=== PATIENT | male | born 1945 | race Caucasian/White ===

== ENCOUNTER → 2017-08-08 07:31 | Outpatient (CLI) | payer MEDICARE, SELFPAY ==
[2017-08-08 07:37] LABS: Microscopic, Urine URINE MICROSCOPIC (MICROSCOPIC)
[2017-08-08 14:37] LABS: Appearance,Urine CLEAR (Clear); Bilirubin,Urine Negative (Negative); Blood, Urine Negative (Negative); Color,Urine YELLOW (Yellow); Glucose,Urine (UA) Negative (Negative); Ketones,Urine Negative (Negative); Leukocyte Esterase,Urine Negative (Negative); Nitrate,Urine Negative (Negative); Protein,Urine Negative (Negative); Urobilinogen,Urine 0.2 EU/dl (0.2)
[2017-08-08 14:51] LABS: Bacteria,Urine Trace /lpf; Mucus,Urine 3+ /lpf; Squamous Epithelial Cell,Urine Occasional #/hpf (0-5); WBC,Urine Occasional #/hpf (0-3)
[2017-08-08 16:00] LABS: Anion Gap 13.3 mEq/L (5-15); Blood Urea Nitrogen 25 mg/dL (7-18); Carbon Dioxide 24 mmol/L (21.0-32.0); Chloride 110 mmol/L (98-107); Creatinine,Serum 1.49 mg/dL (0.70-1.30); Estimated Glomerular Filt Rate 46 ml/min (>60); GFR (African American) 56 ML/MIN (>60); Glucose 114 mg/dL (74-106); Potassium 4.3 mmoL/L (3.5-5.1); Sodium 143 mmol/L (136-145)
[2017-08-09 10:12] LABS: Creatinine, Urine 106.6 mg/dL (Not Estab.); Microalbumin, Urine 4.1 ug/mL (Not Estab.)
== END ==
PROVIDERS: PCP Emergency Medicine; Visit Provider Emergency Medicine
DX: E11.9 Type 2 diabetes mellitus without complications (principal); N28.9 Disorder of kidney and ureter, unspecified
CPT/HCPCS: 36415; 80048; 81001; 82043; 82570; 83036

== ENCOUNTER → 2018-04-24 08:32 | Outpatient (CLI) | payer MEDICARE, SELFPAY ==
[2018-04-24 13:49] LABS: Basophils % 0.3 % (0.1-2.0); Eosinophils # 0.3 K/mm3 (0.0-0.4); Eosinophils % 4.3 % (0.1-12.0); Hematocrit 40.6 % (42.0-52.0); Hemoglobin 13.4 g/dL (14.1-18.0); Lymphocytes # 1.7 K/mm3 (0.7-4.5); Lymphocytes % 26.5 % (10-50); Mean Corpuscular Hemoglobin 31.1 pg (27.0-31.2); Mean Corpuscular Volume 94.4 fl (80-94); Mean Platelet Volume 8.1 fl (7.4-10.4); Monocytes # 0.5 K/mm3 (0.1-1.0); Monocytes % 7.4 % (1.7-9.3); Neutrophils % 61.5 % (37.0-80.0); Platelet Count 179 K/mm3 (142-424); Red Cell Distribution Width 12.9 % (11.5-17.5); White Blood Count 6.5 K/mm3 (4.8-10.8)
[2018-04-24 14:31] LABS: Alanine Aminotransferase 28 U/L (12-78); Albumin Level 3.4 gm/dL (3.4-5.0); Albumin/Globulin Ratio 1.1 (1.1-1.8); Alkaline Phosphatase 38 U/L (46-116); Anion Gap 14.4 mEq/L (5-15); Aspartate Amino Transferase 12 U/L (15-37); Bilirubin,Total 0.4 mg/dL (0.2-1.0); Blood Urea Nitrogen 25 mg/dL (7-18); Calcium 8.5 mg/dL (8.5-10.1); Carbon Dioxide 24 mmol/L (21.0-32.0); Chloride 106 mmol/L (98-107); Chol/HDL Ratio 4.4 (1-3.5); Cholesterol 123 mg/dL (140-200); Creatinine,Serum 1.52 mg/dL (0.70-1.30); Estimated Glomerular Filt Rate 45 ml/min (>60); GFR (African American) 55 ML/MIN (>60); Globulin 3.1 gm/dl (1.3-3.2); Glucose 121 mg/dL (74-106); HDL Cholesterol 28 mg/dL (27-67); LDL Cholesterol 60 mg/dL (0-130); Potassium 4.4 mmoL/L (3.5-5.1); Prostate Specific Ag Screen 0.8 ng/mL (0.0-4.0); Sodium 140 mmol/L (136-145); Thyroid Stimulating Hormone 2.22 uIU/ml (0.358-3.740); Total Protein,Serum 6.5 gm/dL (6.4-8.2); Triglycerides 177 mg/dL (30-200); VLDL Cholesterol 35 mg/dL (0-40)
[2018-04-25 10:59] LABS: Vitamin D 25 Hydroxy 26.5 ng/mL (30.0-100.0)
[2018-04-25 11:00] LABS: Microalbumin, Urine 47.5 ug/mL (Not Estab.)
== END ==
PROVIDERS: PCP Emergency Medicine; Visit Provider Emergency Medicine
DX: Z12.5 Encounter for screening for malignant neoplasm of prostate (principal); E11.40 Type 2 diabetes mellitus with diabetic neuropathy, unspecified; I25.10 Atherosclerotic heart disease of native coronary artery without angina pectoris; I10 Essential (primary) hypertension; R53.83 Other fatigue; E55.9 Vitamin D deficiency, unspecified; K75.81 Nonalcoholic steatohepatitis (NASH)
CPT/HCPCS: 36415; 80053; 80061; 82043; 82652; 83036; 84443; 85025; G0103

== ENCOUNTER → 2018-11-24 07:50 | Outpatient (CLI) | payer MEDICARE, SELFPAY ==
[2018-11-24 13:46] LABS: Anion Gap 16.6 mEq/L (5-15); Blood Urea Nitrogen 27 mg/dL (7-18); Calcium 8.8 mg/dL (8.5-10.1); Carbon Dioxide 23 mmol/L (21.0-32.0); Chloride 108 mmol/L (98-107); Creatinine,Serum 1.62 mg/dL (0.70-1.30); Estimated Glomerular Filt Rate 42 ml/min (>60); GFR (African American) 51 ML/MIN (>60); Glucose 126 mg/dL (74-106); Potassium 4.6 mmoL/L (3.5-5.1); Sodium 143 mmol/L (136-145)
[2018-11-24 17:33] LABS: Hemoglobin A1C 6.1 % (0.0-7.0)
== END ==
PROVIDERS: PCP Emergency Medicine; Visit Provider Emergency Medicine
DX: E11.9 Type 2 diabetes mellitus without complications (principal)
CPT/HCPCS: 36415; 80048; 83036

== ENCOUNTER → 2019-03-20 07:47 | Outpatient (CLI) | payer MEDICARE, SELFPAY ==
[2019-03-20 07:57] LABS: Microscopic, Urine URINE MICROSCOPIC (MICROSCOPIC)
[2019-03-20 14:19] LABS: Appearance,Urine CLEAR (Clear); Bilirubin,Urine Negative (Negative); Blood, Urine Negative (Negative); Color,Urine YELLOW (Yellow); Glucose,Urine (UA) Negative (Negative); Ketones,Urine Negative (Negative); Leukocyte Esterase,Urine Negative (Negative); Nitrate,Urine Negative (Negative); Protein,Urine Negative (Negative); Specific Gravity, Urine 1.015 (1.005-1.030); Urobilinogen,Urine 0.2 EU/dl (0.2)
[2019-03-20 14:44] LABS: Bacteria,Urine Trace /lpf; WBC,Urine Occasional #/hpf (0-3)
[2019-03-20 14:57] LABS: Alanine Aminotransferase 26 U/L (12-78); Albumin Level 3.3 gm/dL (3.4-5.0); Albumin/Globulin Ratio 1.1 (1.1-1.8); Alkaline Phosphatase 34 U/L (46-116); Anion Gap 12.3 mEq/L (5-15); Aspartate Amino Transferase 14 U/L (15-37); Bilirubin,Total 0.4 mg/dL (0.2-1.0); Blood Urea Nitrogen 23 mg/dL (7-18); C-Reactive Protein < 0.2 mg/dL (0.0-0.9); Calcium 8.7 mg/dL (8.5-10.1); Carbon Dioxide 25 mmol/L (21.0-32.0); Chloride 109 mmol/L (98-107); Creatinine,Serum 1.67 mg/dL (0.70-1.30); Estimated Glomerular Filt Rate 41 ml/min (>60); GFR (African American) 49 ML/MIN (>60); Globulin 3.1 gm/dl (1.3-3.2); Glucose 124 mg/dL (74-106); Potassium 4.3 mmoL/L (3.5-5.1); Prostate Specific Ag Screen 0.8 ng/mL (0.0-4.0); Sodium 142 mmol/L (136-145); Thyroid Stimulating Hormone 1.83 uIU/ml (0.358-3.740); Total Protein,Serum 6.4 gm/dL (6.4-8.2)
[2019-03-20 16:25] LABS: Erythrocyte Sedimentation Rate 37 mm/hr (0-20)
== END ==
PROVIDERS: PCP Emergency Medicine; Visit Provider Emergency Medicine
DX: Z12.5 Encounter for screening for malignant neoplasm of prostate (principal); E11.9 Type 2 diabetes mellitus without complications; E78.5 Hyperlipidemia, unspecified; G47.33 Obstructive sleep apnea (adult) (pediatric); G62.9 Polyneuropathy, unspecified; I12.9 Hypertensive chronic kidney disease with stage 1 through stage 4 chronic kidney disease, or unspecified chronic kidney disease
CPT/HCPCS: 36415; 80053; 81001; 84443; 85651; 86140; G0103

== ENCOUNTER 2023-08-01 10:00 | Outpatient (RCR) | payer MEDICARE, SELFPAY | END 2023-08-21 14:36 | disposition home or self-care (01) | LOC: PT 10:00 | PROVIDERS: Visit Provider Nurse Practitioner Family | DX: M62.81 Muscle weakness (generalized) (principal) | CPT/HCPCS: 97010; 97014; 97110; 97140; 97163; 97530; G0283 ==

== ENCOUNTER 2023-10-02 10:00 | Outpatient (RCR) | payer MEDICARE, SELFPAY | END 2023-10-30 15:55 | disposition home or self-care (01) | LOC: PT 10:00 | PROVIDERS: Visit Provider Physician Assistant | DX: M25.552 Pain in left hip (principal); S76.311A Strain of muscle, fascia and tendon of the posterior muscle group at thigh level, right thigh, initial encounter | CPT/HCPCS: 20560; 97010; 97014; 97035; 97110; 97163; G0283 ==

== ENCOUNTER 2024-10-09 09:58 | Emergency (ER) | payer MEDICARE, SELFPAY ==
[2024-10-09] VITALS (12 sets, daily range): BP systolic 138–198; BP diastolic 70–91; PULSE 52–70; RESP 20–22; TEMP 36.8; O2SAT 95–98; BMI 28.4
--- NOTE | 2024-10-09 10:02 | ECG_ITS ---
APPROVED REPORT Exam: Resting ECG HR:66 bpm ECG Measurements Heart Rate 66 AXES UT 185 P 34 QRSd 97 QRS -34 QT 366 T 29 QTc 379 Conclusion Sinus rhythm Left axis deviation Electronically signed by : ATTILA SAMPSON, 10/11/2024 19:39:09
--- NOTE | 2024-10-09 10:29 | XR_ITS ---
FINAL REPORT CLINICAL HISTORY: Precordial chest pain FINDINGS: A single PA view of the chest was obtained. There is no prior exam for comparison. The cardiac and mediastinal silhouettes are within normal limits. The lungs are clear. There is no effusion or pneumothorax. IMPRESSION: No radiographic evidence of acute cardiac or pulmonary disease on this single view of the chest. Reviewed, Interpreted and Dictated by Zunilda Wilson MD Transcribed by Tesha Peter Authenticated and [facility]
[2024-10-09 10:37] LABS: Basophils % 0.2 % (0.1-2.0); Eosinophils # 0.4 Kmm3 (0.0-0.4); Eosinophils % 2.6 % (0.1-12.0); Hematocrit 39.4 % (42.0-52.0); Hemoglobin 13.3 g/dL (14.1-18.0); Immature Granulocytes # 0.07 10^3uL; Immature Granulocytes % 0.5 %; Mean Corpuscular HGB Conc 33.8 g/dL (31.8-35.4); Mean Corpuscular Hemoglobin 31.6 pg (27.0-31.2); Mean Corpuscular Volume 93.6 fl (80-94); Mean Platelet Volume 10.3 fl (7.4-10.4); Monocytes # 1.1 K/mm3 (0.1-1.0); Monocytes % 7.5 % (1.7-9.3); Neutrophils # 10.6 K/mm3 (1.8-7.8); Neutrophils % 75.2 % (37.0-80.0); Nucleated Red Blood Cells # 0 10^3/uL; Nucleated Red Blood Cells % 0 %; Platelet Count 168 K/mm3 (142-424); Red Blood Count 4.21 M/mm3 (4.60-6.20); Red Cell Distribution Width 12.8 % (11.5-17.5); Red Cell Distribution Width-SD 43.8 fL; White Blood Count 14.1 K/mm3 (4.8-10.8)
[2024-10-09 10:43] LABS: Alanine Aminotransferase 22 U/L (12-78); Albumin Level 4.2 g/dl (3.5-5.0); Albumin/Globulin Ratio 1.4 (1.1-1.8); Alkaline Phosphatase 52 U/L (38-126); Anion Gap 10.9 mEq/L (5-15); Aspartate Amino Transferase 26 U/L (17-59); Bilirubin,Total 0.5 mg/dl (0.2-1.3); Blood Urea Nitrogen 36 mg/dl (9-20); Calcium 9.1 mg/dl (8.4-10.2); Carbon Dioxide 21 mmol/L (22.0-30.0); Chloride 110 mmol/L (98-107); Creatinine Clearance Estimated 46 mL/min (50-200); Estimated Glomerular Filt Rate 42 ml/min (>60); GFR (African American) 51 ML/MIN (>60); Globulin 2.9 g/dL (1.3-3.2); Glucose 103 mg/dl (74-100); Potassium 3.9 mmoL/L (3.5-5.1); Sodium 138 mmol/L (136-145); Total Protein,Serum 7.1 g/dl (6.3-8.2)
[2024-10-09 10:49] LABS: D-Dimer 1.12 ug/mL (0.0-0.5)
[2024-10-09 10:55] LABS: NT Pro Brain Natriuretic Pep. 106 pg/mL (0-450)
[2024-10-09 11:01] LABS: Troponin I < 0.01 ng/ml (0.00-0.034)
--- NOTE | 2024-10-09 11:01 | CT_ITS ---
FINAL REPORT TECHNIQUE: Axial imaging of the chest is obtained after the administration of contrast. 3-D MIP reformatted images were also obtained and reviewed per PE protocol. CLINICAL HISTORY: elevated d dimer FINDINGS: The pulmonary arteries are well filled. There is no evidence of pulmonary embolus. There is no aortic dissection. Heart size is normal. There is no mediastinal, hilar, or axillary lymphadenopathy. The lungs are clear except for bilateral lower lobe atelectasis. There is no pleural or pericardial effusion. Limited evaluation of the upper abdomen demonstrates bilateral hypodense renal lesions, likely cysts. No acute abnormality identified. No acute osseous abnormality. IMPRESSION: No evidence of pulmonary embolism or aortic dissection. Reviewed, Interpreted and Dictated by Zunilda Wilson MD Transcribed by Gisele Brooke Authenticated and [facility]
--- NOTE | 2024-10-09 11:20 | PC.NURSE ---
pt going for CTA at this time via wheelchair
--- NOTE | 2024-10-09 11:23 | ED_ITS ---
Discharge Plan Disposition Patient Disposition: Home, Self-Care Chief Complaint: Chest Pain Referrals Follow up/Referrals: Jennifer Harp [Primary Care Provider] - See instructions Jarod Villafana MD [Staff Physician] - See instructions Activity Restrictions/Add. Instructions Additional Instructions/Restrictions: Call your family doctor to establish care for this visit to the emergency department and schedule follow-up within 48 hours to ensure improvement. If you have any worsening of your condition or any other concerning signs or symptoms, return to the emergency department or your primary care doctor for further evaluation. Contact cardiology, Dr. Villafana's office, to set up follow-up appointments. Clinical Impressions Clinical Impression: Chest pain Print Language Print Language: Greenlandic Discharge ED Provider: Kin Alcazar General Chief Complaint: Chest Pain Stated Complaint: sent by Ritu Harp. Chest Pain Time Seen by Provider: 10/09/24 10:12 Mode of Arrival: Ambulatory Source of Information: Patient Description of Symptoms (Recalled from ER Triage Doc. by RN): pt was sent by pcp for severe chest pain and soa that started this morning at 0630, it is mid sternal and worse upon breathing that goes into back, pt has hx of CAD and DVT, and hasnt seen cards in several years History of Present Illness HPI narrative: Please note that above description of symptoms, in this electronic medical record under categorization of recalled from ER triage doctor by RN are reflective of an initial nursing assessment, however, is not reflective of my full history and physical exam that was personally taken and clarified. Consequentially, this preceding description of symptoms, which may include the patient's categorized chief complaint in the EMR, do not reflect my personal clinical impression, and the ultimate description of history of present illness and patient stated complaints should be deferred to this section of the note. Unless stated otherwise or congruent with this section of the note, additional signs, symptoms, or incongruence should be interpreted as inaccurate with my clinical impression. Related Data Allergies Allergy/AdvReac Type Severity Reaction Status Date / Time No Known Allergies Allergy Verified 05/28/19 20:53 [facility] Disclaimer: The information contained in this section may have been updated after the patient was seen, as this information can be updated by other users. Social History Smoking Status: Never smoker alcohol intake: never current occupational status: employed Travel in the last 8 weeks?: None Have you lived/traveled outside US in past 30 days?: No Contact w/someone who lives/traveled outside US past 30 days?: No Exposure to someone with infectious disease in past 14 days?: No Do you have a fever (greater than 100.4 F or 38 C)?: No Have you tested positive for COVID-19?: No Exposed to someone with COVID-19 in past 14 days?: No Do you have a sore throat?: No Do you have a cough?: No Do you have any weakness?: No Do you have any diarrhea?: No Are you experiencing any unusual bleeding?: No Do you have any muscle aches/pain?: No Do you have any abdominal pain?: No Are you experiencing loss of taste or smell?: No Other Medical History Have you received the Flu Vaccine for this season: Yes Have you received the Pneumonia Vaccine: Yes ROS Obtained: Yes All systems reviewed & no additional complaints except as documented Physical Exam General General appearance: alert and in no apparent distress Neck Neck exam: Present trachea midline Chest Chest inspection: Present normal inspection and symmetric chest wall rise Respiratory Respiratory exam: Present normal lung sounds bilaterally; Absent respiratory distress, wheezes, stridor, accessory muscle use or prolonged expiratory phase Cardiovascular Cardiovascular exam: Present regular rate, normal rhythm and other (Pulses equal and symmetric in upper and lower extremities) Abdominal Exam Abdominal exam: Present soft; Absent distention or tenderness Extremities Exam Extremities exam: Absent edema Neurological Exam Neurological exam: Present alert, oriented X3 and CN II-XII intact Skin Skin exam: Present warm and dry; Absent cyanosis, diaphoresis or pallor HEART Score HEART Score HEART Score assessment performed?: Yes History (anamnesis): Slightly suspicious ECG: Normal Age: >65 years Risk factors: 3 or more risk factors Troponin: </= normal limit HEART Score: 4 Critical Care Critical Care Time Critical Care Time: No Medical Decision Making Medical Records Medical records reviewed: Yes I reviewed the patient's medical records. Perico Inquiry Pt receiving controlled substance: No Perico was queried for this patient: No Vital Signs Vital Signs: 10/09/24 10:07 10/09/24 10:13 10/09/24 10:25 Temperature 98.2 F Temperature Source Oral Pulse Rate 66 68 Pulse Rate [Left Radial] 68 Respiratory Rate 20 Blood Pressure 139/70 Blood Pressure [Right Arm] 139/70 Blood Pressure Mean 79 Blood Pressure Mean [Right Arm] 93 02 Sat by Pulse Oximetry 97 97 Oxygen Delivery Method Room Air 10/09/24 10:30 10/09/24 11:00 10/09/24 11:34 Temperature Temperature Source Pulse Rate 63 64 70 Pulse Rate [Left Radial] Respiratory Rate Blood Pressure 138/71 139/70 198/86 H Blood Pressure [Right Arm] Blood Pressure Mean Blood Pressure Mean [Right Arm] 02 Sat by Pulse Oximetry 97 97 97 Oxygen Delivery Method Room Air Room Air Room Air 10/09/24 12:00 10/09/24 12:30 10/09/24 13:00 Temperature Temperature Source Pulse Rate 61 69 59 L Pulse Rate [Left Radial] Respiratory Rate Blood Pressure 160/85 H 160/91 H 157/83 H Blood Pressure [Right Arm] Blood Pressure Mean 107 Blood Pressure Mean [Right Arm] 02 Sat by Pulse Oximetry 98 97 95 Oxygen Delivery Method Room Air Room Air 10/09/24 13:30 Temperature Temperature Source Pulse Rate 52 L Pulse Rate [Left Radial] Respiratory Rate 21 Blood Pressure 161/89 H Blood Pressure [Right Arm] Blood Pressure Mean Blood Pressure Mean [Right Arm] 02 Sat by Pulse Oximetry 95 Oxygen Delivery Method Room Air Lab Data Labs: Lab Results 10/09/24 10:06: WBC 14.1 H, RBC 4.21 L, Hgb 13.3 L, Hct 39.4 L, MCV 93.6, MCH 31.6 H, MCHC 33.8, RDW 12.8, Plt Count 168, MPV 10.3, Neut % (Auto) 75.2, Lymph % (Auto) 14.0, [place] % (Auto) 7.5, Eos % (Auto) 2.6, Baso % (Auto) 0.2, Neut # (Auto) 10.6 H, Lymph # (Auto) 2.0, [place] # (Auto) 1.1 H, Eos # (Auto) 0.4, Baso # (Auto) 0.0, D-Dimer 1.12 H, Sodium 138, Potassium 3.9, Chloride 110 H, Carbon Dioxide 21 L, Anion Gap 10.9, BUN 36 H, Creatinine 1.60 H, Estimated Creat Clear 46, Estimated GFR 42 L, Est GFR ( Amer) 51 L, Glucose 103 H, Calcium 9.1, Total Bilirubin 0.5, AST 26, ALT 22, Alkaline Phosphatase 52, Troponin I < 0.01, NT-Pro-B Natriuret Pep 106, Total Protein 7.1, Albumin 4.2, Globulin 2.9, Albumin/Globulin Ratio 1.4 10/09/24 12:58: Troponin I < 0.01 10/09/24 10:06 10/09/24 10:06 Response Orders (Tests/Meds): ED MEDICATIONS Generic Name Dose Route Start Last Admin Trade Name Freq PRN Reason Stop Dose Admin Sodium Chloride 10 ml 10/09/24 11:36 Sodium Chloride 0.9% 10ml Syr (Rad Only) IV 11/08/24 11:35 NEEDED PRN Maintain IV Site Discontinued Medications Generic Name Dose Route Start Last Admin Trade Name Freq PRN Reason Stop Dose Admin Al Hydrox/Mg Hydrox/Simethicone 30 ml 10/09/24 11:26 10/09/24 12:07 Aluminum/Magnesium/Simethicone 30ml Udc PO 10/09/24 11:27 30 ml ONCE ONE Administration Aspirin 324 mg 10/09/24 11:26 10/09/24 12:07 Aspirin 81mg Chewable Tablet PO 10/09/24 11:27 324 mg ONCE ONE Administration Iopamidol 70 ml 10/09/24 11:36 Iopamidol-370 (76%);100ml Bottle IV 10/09/24 11:37 ONCE ONE Sodium Chloride 50 ml 10/09/24 11:36 0.9 % Sodium Chloride 50 Ml Vial IV 10/09/24 11:37 ONCE ONE ORDERS Category Date Time Status CTA Chest [CT angio chest PE protocol] Stat Cat Scan 10/09/24 11:01 Completed XR chest portable Stat Exams 10/09/24 10:29 Completed Complete Blood Count Auto Diff Stat Lab 10/09/24 10:06 Completed Comprehensive Metabolic Panel Stat Lab 10/09/24 10:06 Completed D-Dimer Stat Lab 10/09/24 10:06 Completed NT Pro Brain Natriuretic Pep. Stat Lab 10/09/24 10:06 Completed Troponin I Q3H Lab 10/09/24 12:58 Completed Troponin I Q3H Lab 10/09/24 16:30 Ordered Troponin I Stat Lab 10/09/24 10:06 Completed MDM Narrative Medical Decision Narrative: 78-year-old male history of hypertension, hyperlipidemia, CAD status post stenting x 3, provoked PE no longer on anticoagulation presenting with chest pain. He states the chest pain started this morning after he woke up. Substernal, does not radiate, associated with some shortness of breath. No PND, orthopnea, lower extremity swelling, or any other concerns. Patient states that he came in for further evaluation. History was obtained via conversation with patient and family. On arrival, patient hemodynamically stable, alert, oriented x4, appropriate, GCS 15, moving all extremities spontaneously, pupils equal and reactive to light. Full physical exam performed and significant for clinically well-appearing male no acute distress. Nontachypneic, nontachycardic, normotensive. Speaking full sentences. Lungs are clear bilaterally anterior and posteriorly. Cardiac exam without murmurs gallops or rubs. No lower extremity edema. Pulses equal and symmetric in upper and lower extremities. Neurovascular intact and ambulatory. Nonactionable exam overall. Differential includes microvascular coronary artery disease, CHF, ACS, VA, coronary artery dissection, pneumothorax, PE, dissection, pericarditis, myocarditis, pneumothorax, aortic aneurysm, pneumonia, bronchitis, among others. Patient was given Maalox and aspirin for symptomatic management and correction of underlying abnormalities. Patient placed on continuous cardiac monitoring and continuous pulse ox with initial blood pressure 138/71, heart rate 63, saturation 97% on room air. Independent interpretation of EKG shows sinus rhythm with left axis deviation CT interval 185, QRS 97, QTc 379. No acute ischemic change. Ventricular rate 66 bpm. Workup independently interpreted and significant for mild leukocytosis 14.1 with relative neutrophilia. Patient's kidney function appears stable with creatinine 1.6 and BUN 36. Initial troponin negative, BNP negative. D-dimer elevated at 1.12. CT angiogram was ordered. Chest x-ray ordered first. On independent interpretation of chest x-ray, no acute intrathoracic abnormality. See radiology read for full review of final results. Heart score 4. Patient was placed in observation beginning at 11 AM in order to rule out evolving VA with delta troponins and determine need for admission versus home-going. The patient was provided serial exams, monitoring while awaiting results. Independent interpretation of results demonstrated no acute cardiopulmonary or airspace disease on CT, no evidence of PE. Delta troponin negative. On reevaluation, resting comfortably. Given patient presentation, workup, history, this most likely represents idiopathic chest pain. It was discussed with patient and that cardiac chest pain cannot be completely ruled out and recommended following up with cardiology and PCP. Call your family doctor to establish care for this visit to the emergency department and schedule follow-up within 48 hours to ensure improvement. If you have any worsening of your condition or any other concerning signs or symptoms, return to the emergency department or your primary care doctor for further evaluation. Insurance Special Agent disclaimer Much of this encounter note is an electronic kiln operator helper spoken language to printed text. Electronic kiln operator helper of the spoken language may permit errors. Although I have reviewed the note, some errors may still exist.
--- NOTE | 2024-10-09 11:32 | PC.NURSE ---
pt arrived back to room
[2024-10-09] MEDS: ASPIRIN 81MG CHEWABLE TABLET 324 MG PO (12:07)
[2024-10-09] MEDS: ALUMINUM/MAGNESIUM/SIMETHICONE 30ML UDC 30 ML PO (12:07)
--- NOTE | 2024-10-09 13:37 | PC.NURSE ---
pt was given a urinal at this time
[2024-10-09 13:40] LABS: Troponin I < 0.01 ng/ml (0.00-0.034)
== END 2024-10-09 14:16 | disposition home or self-care (01) ==
PROVIDERS: Emergency Provider Emergency Medicine; PCP Nurse Practitioner Family
DX: R07.2 Precordial pain (principal); R06.02 Shortness of breath; I25.10 Atherosclerotic heart disease of native coronary artery without angina pectoris; I10 Essential (primary) hypertension; E78.5 Hyperlipidemia, unspecified
CPT/HCPCS: 71045; 71275; 80053; 83880; 84484; 85025; 85378; 93005; 99285

== ENCOUNTER 2025-02-21 11:28 | Observation (INO) | payer MEDICARE, SELFPAY ==
[2025-02-21] VITALS (17 sets, daily range): BP systolic 72–127; BP diastolic 44–65; PULSE 58–90; RESP 14–26; TEMP 36.4–36.7; O2SAT 94–99; BMI 25.8
--- OUTSIDE RECORDS SUMMARY | 2025-02-21 11:42 | XMS_ITS | Encounter Summary ---
Author Organization [employer] ([place], [place], [place], [place]) Address [address] [place] [address] Care Team Providers Care Jet Operator Name Role Phone Jennifer Harp DANYELLE Primary Care Provider [phone] Encounter Details Date Type Department Care Team (Late st Contact Info) Description 10/26/2019 Transcribed Document [facility] Neurology - [address] [id number] Tania Bee Jr., MD [address] [place] [address] Social History Tobacco Use Types Packs/Day Years Used Date Smoking Tobacco: Never Assessed Sex and Gender Information Value Date Recorded Sex Assigned at Male 11/21/2021 4:44 PM CDT Legal Sex Male 4:44 PM CDT Gender Identity Male 11/21/2021 4:44 PM CDT Sexual Orientation Not on file documented as of this encounter Miscellaneous Notes * Cerner Conversion Note - Tania Bee Jr., MD - 10/26/2019 1:29 PM EDT Patient: JAMIR VILLAFUERTE Age: 74 Years Sex: Male : 1945 *Operation L3-s1 laminectomy and posterolateral fusion t10-ll laminectomy *Preoperative Diagnosis lumbar stenosis thoracic stenosis *Postoperative Diagnosis SEE MD POST OP NOTE *Surgeon(s) Primary Surgeon TANIA BEE MD-SNU (Surgeon/Proceduralist, First) *Estimated Blood Loss <400ml *Findings expected *Specimen(s) disc Complications none Date of Service Date/Time of Service SN - Proc - Start Time: 10/26/19 08:57:00 (10/26/19 09:05:25) SN - Proc - Start Time: 10/26/19 08:57:00 (10/26/19 09:05:25) documented in this encounter Plan of Treatment Not on file documented as of this encounter Visit Diagnoses Not on filedocumented in this encounter Care Teams Jet Operator Relationship Specialty Start Date End Date Jennifer Harp, FRUIT AND VEGETABLE PARER [address] [place] [address] PCP - General Family Medicine 12/18/22 documented as of this encounter
--- OUTSIDE RECORDS SUMMARY | 2025-02-21 11:42 | XMS_ITS | Encounter Summary ---
Author Organization [employer] ([place], [place], [place], [place]) Address [address] [place] [address] Care Team Providers Care Technical Director Name Role Phone Jennifer Harp DANYELLE Primary Care Provider [phone] Encounter Details Date Type Department Care Team (Late st Contact Info) Description 10/26/2019 Transcribed Document [facility] Family [facility] [place] [address] ProviderHarsh MD [address] [place] [id number] Social History Tobacco Use Types Packs/Day Years Used Date Smoking Tobacco: Never Assessed Sex and Gender Information Value Date Recorded Sex Assigned at Male 11/21/2021 4:44 PM CDT Legal Sex Male 4:44 PM CDT Gender Identity Male 11/21/2021 4:44 PM CDT Sexual Orientation Not on file documented as of this encounter Miscellaneous Notes * Cerner Conversion Note - Historical ProviderMD - 10/26/2019 8:[address] [facility] Main OR Preop Summary Primary Physician: TANIA BEE MD-SNU Finalized Date/Time: 10/26/19 08:50:56 Pt. Name: VILLAFUERTE JAMIR Coleman /Sex: 1945 Male Med Rec #: [id number] Physician: TANIA BEE MD-SNU Financial #: [id number] Pt. Type: I Room/Bed: ASA/1 Admit/Disch: 10/26/19 06:44:00 - Institution: [facility] PreOp Case Times Entry 1 In Preop 10/26/19 06:00:00 Ready for Holding n/a Room Patient Ready for 10/26/19 07:25:00 Surgery Patient Out of Preop 10/26/19 08:17:00 Patient Out of n/a Holding Room Last Modified By: Kaleigh Rivera, Nurse Rn L And D 10/26/19 08:50:55 [facility] PreOp Case Times Audit 10/26/19 08:50:55 Technical Inspector: BRICE Modifier: [id number] <+> 1 Patient Out of Preop Finalized By: Kaleigh Rivera Nurse Hatchery Employee Signatures Signed By: Kaleigh Rivera Nurse Rn L And D 10/26/19 08:50 Electronically signed by [facility] Conversion Risk Analyst Cerner at 09/12/2022 11:03 AM CDT documented in this encounter Plan of Treatment Not on file documented as of this encounter Visit Diagnoses Not on filedocumented in this encounter Care Teams Technical Director Relationship Specialty Start Date End Date Jennifer Harp, MEDICAL LANGUAGE SPECIALIST [address] [place] [address] PCP - General Family Medicine 12/18/22 documented as of this encounter
--- OUTSIDE RECORDS SUMMARY | 2025-02-21 11:42 | XMS_ITS | Encounter Summary ---
Author Organization [employer] ([place], [place], [place], [place]) Address [address] [place] [address] Care Team Providers Care Tenter Frame Back Tender Name Role Phone KatiuskaJennifer Kwesi BASSETT Primary Care Provider [phone] Encounter Details Date Type Department Care Team (Late st Contact Info) Description 06/11/2019 Transcribed Document [facility] [place] [facility] [place] [address] ProviderHarsh MD [address] [place] [address] Social History Tobacco Use Types Packs/Day Years Used Date Smoking Tobacco: Never Assessed Sex and Gender Information Value Date Recorded Sex Assigned at Male 11/21/2021 4:44 PM CDT Legal Sex Male 4:44 PM CDT Gender Identity Male 11/21/2021 4:44 PM CDT Sexual Orientation Not on file documented as of this encounter Miscellaneous Notes * Cerner Conversion Note - Historical ProviderMD - 06/11/2019 1:34 PM FRONT END DRUPAL DEVELOPER DATE OF SERVICE: 06/11/2019 SLEEP MEDICINE CONSULTATION. PRIMARY PROVIDER: Dr. Jamal Orozco. HISTORY OF PRESENT ILLNESS: Patient has a history of obstructive sleep apnea of at least 20 years duration. He has most recently been treated with bilevel therapy based on a titration study performed in 2015 here at [facility]. I have those studies and have reviewed them. According to the patient, and I am not able to obtain notes, he was treated with 19/18 bilevel therapy. He says that this caused him marked difficulty sleeping. He would wake up with a tight chest and choking and this caused the lining of his mouth to peel. He had hospital vent and they have reset the machine to 9 according to his recollection. Unfortunately, we cannot get Viri's to give us any information on his settings and the machine has no data on it to download. Patient goes to bed about 9 at night, gets up at 5 in the morning, averages 8 hours of sleep at night. He is fatigued during the day. His [place] Sleepiness Score is elevated at 17. He did snore in the past, does not with CPAP, but still is observed to stop breathing at night. It is of note that his CPAP titration study did show persistent central apneas and he was taken to ASV. The central apneas, however, only developed with high CPAP pressures over 20 cm of water pressure. He does have symptoms of reflux. He does have hypnagogic hallucinations. He does have some leg pain. Parasomnias, he denies. PAST MEDICAL HISTORY: Significant for hypertension, coronary artery disease, chronic nasal obstruction, skin cancer, high cholesterol, reflux, kidney disease, and cataracts. PAST SURGICAL HISTORY: Two cardiac stents, detached retinas, cataract surgery. SOCIAL HISTORY: He does not smoke or use alcohol. He drinks 3 to 4 caffeinated beverages a day. FAMILY HISTORY: Positive for diabetes, heart disease, hypertension, daytime sleepiness, and restless legs. REVIEW OF SYSTEMS: A 14-system review of systems is reviewed on the intake questionnaire and pertinent positives are noted. PHYSICAL EXAMINATION: VITAL SIGNS: Height is 5 feet 10 inches, weight is 210, BMI is 30, neck circumference 16, respirations 16, O2 saturations 97%, blood pressure is 130/70, pulse is 62. HEENT: On exam of the oropharynx, mucosa is normal. He has Mallampati type 3. NECK: Without palpable adenopathy. Trachea is midline. Thyroid is normal to palpation. Parotids and submandibular glands are normal. LUNGS: Clear to auscultation with distant breath sounds. HEART: Without murmurs. EXTREMITIES: Without clubbing or cyanosis. He does have 1+ ankle edema. NEUROLOGIC: Cranial nerves II through XII are intact. He is oriented appropriate and a fair historian. MEDICATIONS: 1. Low-dose aspirin. 2. Carvedilol. 3. Omeprazole. 4. Oxybutynin. 5. Sertraline. 6. Plavix. 7. Alfuzosin. 8. Durezol drops. 9. Losartan. 10. Lovastatin. 11. Nasacort. ALLERGIES: Penicillin. LABORATORY DATA: Patient's previous CPAP titration study and ASV titration were reviewed. IMPRESSION: 1. Obstructive sleep apnea. 2. Hypertension. 3. Coronary artery disease. 4. Obesity. RECOMMENDATIONS: 1. CPAP titration report. 2. New mask tubing and filters. I am going to have them titrate him with fairly low pressures as I think a higher pressures induce central apneas. Hopefully we can get him treated with bilevel and get him on a new machine, which he desperately needs as this one is quite old. 3. Follow up in 6 to 8 weeks, but we will phone followup and get his machine ordered as soon as possible. /[id number] Pam lAix Hayes MD PW/AQ / PW / MODL /[id number] CC: Dr. Bertrand Orozco Electronically signed by [facility] Conversion Ultrasonographer Cerner at 09/12/2022 11:11 AM CDT documented in this encounter Plan of Treatment Not on file documented as of this encounter Visit Diagnoses Not on filedocumented in this encounter Care Teams Tenter Frame Back Tender Relationship Specialty Start Date End Date Jennifer Harp, ADJUNCT SPANISH INSTRUCTOR [address] [place], [place] [address] PCP - General Family Medicine 12/18/22 documented as of this encounter
--- OUTSIDE RECORDS SUMMARY | 2025-02-21 11:42 | XMS_ITS | Encounter Summary ---
Author Organization [address] ([place], [place], [place], [place]) Address [address] [place] [address] Care Team Providers Care Panel Machine Setter Name Role Phone KatiuskaJennifer Kwesi BASSETT Primary Care Provider [phone] Encounter Details Date Type Department Care Team (Late st Contact Info) Description 10/27/2019 Transcribed Document [facility] [place] [facility] [place] [address] ProviderHarsh MD [address] [place] [address] Social History Tobacco Use Types Packs/Day Years Used Date Smoking Tobacco: Never Assessed Sex and Gender Information Value Date Recorded Sex Assigned at Male 11/21/2021 4:44 PM CDT Legal Sex Male 4:44 PM CDT Gender Identity Male 11/21/2021 4:44 PM CDT Sexual Orientation Not on file documented as of this encounter Miscellaneous Notes * Cerner Conversion Note - Historical ProviderMD - 10/27/2019 11:57 AM CDT Treatment Intervention, OT Entered On: 10/29/2019 14:47 EDT Performed On: 10/29/2019 9:13 EDT by MIGUEL JOHNSON OTR/Deisy General Information, OT Visit Type, OT : Treatment Note MIGUEL JOHNSON OTR/Deisy - 10/29/2019 14:40 EDT Patient Orders : Order Date Order Ordering 10/26/2019 12:26 Occupational Therapy Evaluation and Treatme Ordered By: TANIA BEE MD-SNU 10/27/2019 11:57 OT Additional Treatment Ordered By: Active Diagnoses : 10/28/2019 12:00 Spinal stenosis, lumbar region without neurogenic claudication 10/28/2019 12:00 Spondylolisthesis, lumbar region MIGUEL JOHNSON OTR/L 10/29/2019 15:04 EDT Therapy Diagnosis, OT : Decreased indpendence with ADLs due to pain and weakness MIGUEL JOHNSON OTR/L 10/29/2019 14:40 EDT Admission Date : 10/26/2019 06:44 MIGUEL JOHNSON OTR/L 10/29/2019 15:04 EDT Co-treated by, OT : Physical Therapist MIGUEL JOHNSON OTR/L 10/29/2019 14:40 EDT Personal Devices : Personal Devices Glasses Assistive Devices : Assistive Devices No Devices Recorded MIGUEL JOHNSON OTR/L 10/29/2019 15:[address] : Log roll precautions, Spinal Precautions, Other: HOB elevated to 30 deg MIGUEL JOHNSON OTR/L 10/29/2019 14:40 EDT General Status Patient Received Status : Supine in bed Treatment Start Time : 10/29/2019 8:47 EDT Patient Left Status : Supine in bed, Family/Visitors at bedside, All needs met and within reach RN/PCT Informed Comment : BEVERLEY Pacheco ok/brigida Treatment End Time : 10/29/2019 9:13 EDT Treatment Time : 26 Minute(s) MIGUEL JOHNSON OTR/L 10/29/2019 14:40 EDT Self Care/Home Management, OT Lower Body Dressing Assist Level, OT : Assist, moderate Toilet Transfer Assist Level : Assist, minimal MIGUEL JOHNSON OTR/L 10/29/2019 14:40 EDT Functional Mobility Mobility Grid Sit to Stand : Rehab Minimal assistance Bed to Chair : Rehab Minimal assistance (Comment: X2 [MIGUEL JOHNSON OTR/L 10/29/2019 14:40 EDT] ) Stand to Sit : Rehab Minimal assistance MIGUEL JOHNSON OTR/L - 10/29/2019 14:40 EDT Cognitive Treatment, OT Orientation : Oriented x 4 MIGUEL JOHNSON OTR/L - 10/29/2019 14:40 EDT Plan of Care, OT OT Tx Plan/Goals Established w Patient : Yes MIGUEL JOHNSONDHAVAL/Deisy - 10/29/2019 14:40 EDT Intermediate Goals, OT Bathing LTG Grid Goal #1 Activity : Bathing Assist : Independent, modified Date to Meet : 11/10/2019 EDT Goal Status : Initial goal ALEX DHAVAL RIVERA/Deisy - 10/29/2019 14:40 EDT Dressing, Lower Body LTG Grid Goal #1 Activity : Dressing, Lower Body Assist : Independent, modified Date to Meet : 11/10/2019 EDT Goal Status : Progressing, continue ALEX DHAVAL RIVERA/Deisy - 10/29/2019 14:40 EDT Toileting LTG Grid Goal #1 Activity : Toileting Assist : Independent, modified Date to Meet : 11/10/2019 EDT Goal Status : Initial goal ALEX DHAVAL RIVERA/Deisy - 10/29/2019 14:40 EDT Toilet Transfer LTG Grid Goal #1 Activity : Toilet Transfer, Ambulatory Assist : Independent, modified Date to Meet : 11/10/2019 EDT Goal Status : Progressing, continue ALEX DHAVAL RIVERA/Deisy - 10/29/2019 14:40 EDT Treatment Note Subjective Comment : Pt was agreeable ALEX DHAVAL RIVERA/Deisy - 10/29/2019 14:40 EDT Patient's Response to Treatment : Pt tolerated tx well ALEX DHAVAL RIVERA/Deisy - 10/29/2019 15:04 EDT Additional Objective Information : Pt was found up in room with PT. Pt was min A X2 for ambulation via RWX. Pt was mod A for lower body dressing via yard caller and sock aid. Pt was min A for upper body dressing. Pt was left sitting up in chair with all needs met, and call light within in reach MIGUEL JOHNSON OTR/Deisy - 10/29/2019 14:40 EDT Assessment : Pt is progressing towards goals, no goals met today Plan for Treatment : Cont OT POC MIGUEL JOHNSON OTR/Deisy - 10/29/2019 15:04 EDT Pain Assessment Pain Scaled Used : 0-10 Pain scale Pain Score Pre-Intervention : 7 MIGUEL JOHNSON OTR/Deisy - 10/29/2019 14:40 EDT Image 1 - Images currently included in the form version of this document have not been included in the text rendition version of the form. [facility] OT Charges OT Selfcare/Hm Mgmt Ea 15 Min : 1 OT Ther Activities Ea 15 Min : 1 MIGUEL JOHNSON OTR/Deisy - 10/29/2019 14:40 EDT Electronically signed by Bora, [facility] Conversion Charging Plug Placer Cerner at 09/16/2022 3:30 PM CDT documented in this encounter Plan of Treatment Not on file documented as of this encounter Visit Diagnoses Not on filedocumented in this encounter Care Teams Panel Machine Setter Relationship Specialty Start Date End Date Jennifer Harp, DROP WIRER [address] [place] [address] PCP - General Family Medicine 12/18/22 documented as of this encounter
--- OUTSIDE RECORDS SUMMARY | 2025-02-21 11:42 | XMS_ITS | Encounter Summary ---
Author Organization [employer] ([place], [place], [place], [place]) Address [address] [place] [address] Care Team Providers Care Lead Applications Developer Name Role Phone KatiuskaJennifer Kwesi BASSETT Primary Care Provider [phone] Encounter Details Date Type Department Care Team (Late st Contact Info) Description 10/22/2019 Transcribed Document [facility] [place] [facility] [place] [address] ProviderHarsh MD [address] [place] [address] Social History Tobacco Use Types Packs/Day Years Used Date Smoking Tobacco: Never Assessed Sex and Gender Information Value Date Recorded Sex Assigned at Male 11/21/2021 4:44 PM CDT Legal Sex Male 4:44 PM CDT Gender Identity Male 11/21/2021 4:44 PM CDT Sexual Orientation Not on file documented as of this encounter Miscellaneous Notes * Cerner Conversion Note - Historical ProviderMD - 10/22/2019 2:31 PM CDT PAT Adult Entered On: 10/22/2019 14:49 EDT Performed On: 10/22/2019 14:31 EDT by CHUCK KELLY, RN Vital Measurements Temperature Source : Temporal artery scanning Temperature Mode : Fahrenheit Temperature, Fahrenheit : 98.1 Deg F Clinical Temperature, C : 36.7 Deg C Peripheral Pulse Rate : 60 bpm Respiratory Rate : 18 Breaths/Min Systolic Blood Pressure : 117 mmHg Diastolic Blood Pressure : 68 mmHg Oxygen Saturation : 96 % Oxygen Therapy Mode : Room air CHUCK KELLY RN - 10/22/2019 15:00 EDT Pain Assessment Pain Assessment : Initial assessment Pain Scale Goal : 3 Pain Scale Used : 0-10 Scale Location : Back Pain Worsened by : Movement CHUCK KELLY RN - 10/22/2019 14:31 EDT Height and Weight, Clinical Dosing Height Source : Measured Height Entry Format : [place] Height, Feet : 5 ft(Converted to: 152 cm, 60 Inch) Height, Inches : 7 Inch(Converted to: 0 ft 7 Inch, 17.78 cm) Clinical Height : 170.18 cm Weight Source : Standing scale Weight Entry Format : [place] Clinical Dosing Weight : 87.73 kg Weight, Pounds : 193 lb Body Surface Area (BSA) : 1.99 m2 Body Mass Index : 30.3 kg/m2 (HI) Matthews Body Weight : 65 kg CHUCK KELLY RN - 10/22/2019 14:31 EDT Health Histories Smoking Status : Never (less than 100 in lifetime; none in last 30 days) Smokeless Tobacco Status : Never CHUCK KELLY RN - 10/22/2019 14:31 EDT Social History (As Of: 10/22/2019 14:49:13 EDT) Tobacco: Smoking Status Never smoker. (Last Updated: 07/15/2013 16:51:04 EST by YARIEL REAL, BEVERLEY) Alcohol: Use in Last 12 Months: No. (Last Updated: 07/15/2013 16:51:04 EST by YARIEL REAL, BEVERLEY) Substance Abuse: Drug Use Hx: No. (Last Updated: 07/15/2013 16:51:04 EST by YARIEL REAL, BEVERLEY) Nutrition/Health: Caffeine intake amount: 2 cups coffee/1 soda daily. (Last Updated: 07/15/2013 16:51:04 EST by YARIEL REAL, BEVERLEY) Home/Environment: Injuries/Abuse/Neglect in household: No. Feels unsafe at home: No. (Last Updated: 07/15/2013 16:51:04 EST by YARIEL REAL, RN) Lives with Spouse. Home equipment: CPAP/BiPAP, Glucose monitoring, Walker/Cane. (Last Updated: 10/22/2019 14:21:24 EDT by CHUCK KELLY RN) Infectious Disease History Has the patient ever been tested for COVID-19? : Yes, Patient stated results pending Date of COVID-19 Test : 10/22/2019 COVID19 Screening : No Experiencing Infectious Disease Symptoms : No symptoms Physical contact outside [place] in the last 30 days : No Infectious Disease Symptoms Score : 0 Infectious Disease History : Chicken pox/Shingles, Influenza, Measles, Mumps Tuberculosis Symptoms : None CHUCK KELLY RN - 10/22/2019 14:31 EDT Anesthesia/Transfusion History Family History of Anesthesia Reaction : No prior transfusion(s) Blood Transfusion Acceptable to Patient : Yes Transfusion History : Prior anesthesia without reaction Family History of Anesthesia Reaction : None, Other: mother age 91 didnt wake up after hip pinning... 3 days later 2014 CHUCK KELLY RN - 10/22/2019 14:31 EDT Functional Assessment Functional ADL Evaluation Index EBN Bathing : Independent (2) Dressing : Independent (2) Toileting : Independent (2) Transferring Bed or Chair : Independent (2) Continence : Independent (2) Feeding : Independent (2) CHUCK KELLY RN - 10/22/2019 14:31 EDT ADL Index Score : 12 CHUCK KELLY RN - 10/22/2019 14:31 EDT Advance Directive Patient has Advance Directive *Q : No, patient refuses Advance Directive information CHUCK KELLY RN - 10/22/2019 14:31 EDT [place] Suicide Severity Rating Scale (C-SSRS) CSSRS Past Month Wish to be : No CSSRS Past Month Suicidal Thoughts : No CSSRS Lifetime Suicide Behavior : No Suicide Severity Rating Score : 0 Suicide Severity Rating : No Additional Care Required at this time CHUCK KELLY RN - 10/22/2019 14:31 EDT Psychosocial History Do You Have a History of the Following? : Anxiety Currently in Unsafe Situation : No CHUCK KELLY RN - 10/22/2019 14:31 EDT Teaching/Learning Assessment Barriers To Learning : None evident Individuals Taught : Patient Readiness to Learn : Cooperative Readiness to Learn : Explanation, Printed materials CHUCK KELLY RN - 10/22/2019 14:31 EDT Education Topics, Periop Preadmission Perioperative Education Grid Arrival Time/Place : Verbalizes understanding CHG Preoperative Bathing/Cloths : Verbalizes understanding Falls : Verbalizes understanding Infection Control : Verbalizes understanding IV's : Verbalizes understanding NPO Status/Directions : Verbalizes understanding Pain Management : Verbalizes understanding Postoperative Care Preparations : Verbalizes understanding Preprocedure Preparations : Verbalizes understanding Preprocedure Tests/Labs : Verbalizes understanding Remove Body Piercings : Verbalizes understanding Responsible Adult : Verbalizes understanding Take/Hold Medications Pre-Procedure : Verbalizes understanding CHUCK KELLY RN - 10/22/2019 14:31 EDT Responsible Adult Contact Information : mago morrison CHUCK KELLY RN - 10/22/2019 14:31 EDT General Info Preferred Name : Jamir Support Person/Pt Rep Name : Mago Support Person/Pt Rep Contact Information : [phone] or [phone] Want Family/Rep/Phys Notified of Admit : No Emergency Contact #1 : mago Emergency Contact #1 Emergency Contact #1 Relationship : spouse Emergency Contact #2 : none Emergency Contact #2 Phone Number : none Emergency Contact #2 Relationship : none Information Obtained From : Patient Primary Language : Belizean Preferred Communication Mode : Verbal Communication Barrier : None CHUCK KELLY RN - 10/22/2019 14:31 EDT Bernard Scale Bernard Sensory Perception : Slightly limited Bernard Moisture : Rarely moist Bernard Activity : Walks occasionally (Comment: tabe [CHUCK KELLY RN - 10/22/2019 14:31 EDT] ) Bernard Mobility : Slightly limited Bernard Nutrition : Adequate Bernard Friction and Shear : No apparent problem Bernard Score : 19 CHUCK KELLY RN - 10/22/2019 14:31 EDT Sleep Apnea Risk Assmt BiPAP/CPAP Ordered for Home Use : Yes Hx of Obstructive Sleep Apnea Diagnosis : Yes BiPAP/CPAP Used at Home : Yes Age over 50 Years Old : Yes Gender Male : Yes CHUCK KELLY RN - 10/22/2019 14:31 EDT Pain Scale Intensity : 4 CHUCK KELLY RN - 10/22/2019 14:31 EDT Image 4 - Images currently included in the form version of this document have not been included in the text rendition version of the form. documented in this encounter Plan of Treatment Not on file documented as of this encounter Visit Diagnoses Not on filedocumented in this encounter Care Teams Lead Applications Developer Relationship Specialty Start Date End Date Jennifer Harp, TAX PROCESSOR [address] [place] [address] PCP - General Family Medicine 12/18/22 documented as of this encounter
--- OUTSIDE RECORDS SUMMARY | 2025-02-21 11:42 | XMS_ITS | Encounter Summary ---
Author Organization [employer] ([place], [place], [place], [place]) Address [address] [place] [address] Care Team Providers Care Electric Power Line Repairer Name Role Phone Jennifer Harp DANYELLE Primary Care Provider [phone] Encounter Details Date Type Department Care Team (Late st Contact Info) Description 10/26/2019 Transcribed Document [facility] Radiology [address] [place] [address] Nerissa Sharma MD [address] [place] [address] Social History Tobacco Use Types Packs/Day Years Used Date Smoking Tobacco: Never Assessed Sex and Gender Information Value Date Recorded Sex Assigned at Male 11/21/2021 4:44 PM CDT Legal Sex Male 4:44 PM CDT Gender Identity Male 11/21/2021 4:44 PM CDT Sexual Orientation Not on file documented as of this encounter Miscellaneous Notes * Cerner Conversion Note - Nerissa Sharma MD - 10/26/2019 1:13 PM EDT Patient: JAMIR VILLAFUERTE Age: 74 years Sex: Male : 1945 Associated Diagnoses: None Author: EL LOMBARDO PA-QUIN 10/26/2019 cc: medical management s/p posterior lumbar fusion per Dr. Locke HPI: Patient is a 74 yo male admitted to [facility] per Dr. Locke for a posterior lumbar fusion. Preoperatively patient was found to have advanced spondylolisthesis of the lumbar spine and elected surgical intervention after failing conservative treatment. Patient is followed perioperatively while hospitalized for medical management. Initial visit seen on floor - Denies prior stroke or seizure. Denies HI, CHF or cardiac arrhythmia. Has had to have a cardiac stent placed. Denies DM. Denies COPD, asthma. Denies DVT or PE. Denies h/o cancer. Denies any bladder issues. Denies any recent illnesses that required abx. Denies prior skin infections. Has a history of chronic loose stools. States that Metamucil helps keep you informed. Has Tenorio cirrhosis. Has chronic kidney disease. History of hypertension. States he does have obstructive sleep apnea and wears a BiPAP at night. Patient states he's had a greenlight procedure on his prostate. States that now he urinates every 30 minutes. Past Med Hx: Active Problems (29) Anxiety Arthritis Back pain CAD, 3 heart stents May 2015 Cancer of skin, 2018 left pre-auricular lesion excised Cataract//extraction Chronic constipation depression diagnosed obstructive sleep apnea Diverticula of colon Falls frequently//less past 2 weeks GERD Hard of hearing History of obstructive sleep apnea//biPap hypercholesterolemia hypertension impaired vision//wears glasses Incontinence Liver cirrhosis//non alcholic Muscle weakness//legs Numbness and tingling//bilateral knee down prostate problems Renal disease//stage 4 Restless legs syndrome Right hip pain//right leg Seasonal allergies Sleep disorder//has to sleep on side spine problems Swelling of lower extremity//bilateral Active Procedures (1) greenlight laser of prostate Family Hx: Father had esophageal rupture. Mother was 21 years old and to 3 days to wake up from surgery. She did not do well afterwards. Social & Psychosocial Habits Alcohol 07/15/2013 Alcohol Use in Last Twelve Months No Home/Environment 07/15/2013 Injuries/Abuse/Neglect in household: No Feels unsafe at home: No 10/22/2019 Lives with: Spouse Home equipment: CPAP/BiPAP, Glucose monitoring, Walker/Cane Nutrition/Health 07/15/2013 Caffeine intake amount: 2 cups coffee/1 soda daily Substance Abuse 07/15/2013 Recreational Drug Use History No Tobacco 07/15/2013 Smoking Status Never smoker Allergies (1) Active Reaction penicillin Unsure Home Medications (12) Active alfuzosin 10 mg, Oral, Daily Mila Low Dose 81 mg, Oral, Daily carvedilol 25 mg, Oral, BID Durezol 2 Drop, Eye Left, Daily losartan 50 mg, Oral, Daily Metamucil , Oral, Daily multivitamin 1 Tab, Oral, Daily Nasacort Allergy 24HR 1 Superior, Nasal, Daily omeprazole 40 mg, Oral, Daily Plavix 75 mg, Oral, Daily Refresh Optive 1 Drop, Eye Right, Daily sertraline 25 mg, Oral, Daily ROS: Constitutional: [No fevers, sweats] , currently chilled after surgery. HEENT: [No ear pain, nasal congestion, sore throat] Respiratory: [No shortness of breath, cough, sputum production] Cardiovascular: [No Chest pain, palpitations, shortness of breath] Gastrointestinal: [No nausea, vomiting, diarrhea, constipation] , states he has loose stools but takes Metamucil daily and this helps form his stool. Genitourinary: [No hematuria, dysuria, incontinence ; positive urinary frequency Musculoskeletal: Positive back pain Integumentary: [No rash, pruritus, abrasions, lesions] Neurologic: [No seizures or stroke. No dizziness or syncope. Exam: Vitals Signs (last 24 hrs) Last Charted Minimum Maximum Temp 98.2 (OCT 25:04) 98.2 (OCT 25:) 98.2 (OCT 25:) Periph HR 55 (OCT 25:) 55 (OCT 25:04) 55 (OCT 25:) Resp Rate 16 (OCT 25:04) 16 (OCT 25 07:04) 16 (OCT 25 07:04) SBP 135 (OCT 25 07:04) 135 (OCT 25 07:04) 135 (OCT 25:) DBP 71 (OCT 25 07:04) 71 (OCT 25 07:04) 71 (OCT 25 07:04) SpO2 97 (OCT 25 07:04) 97 (OCT 25 07:04) 97 (OCT 25:) GEN: Alert, awake, NAD, in the bed shivering. Neck: supple, no thyromegaly HEENT: NCAT, no icterus, no thrush, nares patent, CV: S1S2, no murmur. No LE edema Resp: CTAB, NL Abd: Soft, NT, ND +BS Skin: no rashes on inspection and palpation. Ext: No LE edema. No joint edema, erythema. Neuro: A&O x 3, CN grossly intact Data: Preop: Reviewed CBC, BMP, UA Creatinine 1.5 EKG with normal sinus rhythm, heart rate of 61 Impression: advanced spondylolisthesis Lspine; -Status post posterior lumbar fusion per Dr. Locke Hypertension Obstructive sleep apnea, BiPAP compliant Tenorio cirrhosis chronic kidney disease stage IV Plan: bipap Will hold ARB, reassess bp and renal function in the a.m. Monitor HTN; add PRN's, hold parameters???for beta vignesh bowel regimen incentive spirometer PT/OT DVT prophylaxis noted Pain management deferred to surgeon will monitor hb/hct daily for signs of ongoing acute blood loss will monitor bun/cr daily for signs of dehydration, prerenal azotemia will monitor for signs/symptoms of post-op wound infection or hospital acquired infectious process resume outpatient medication regimen for comorbidities Assessment and treatment plan made in conjunction with Humberto Sharma MD documented in this encounter Plan of Treatment Not on file documented as of this encounter Visit Diagnoses Not on filedocumented in this encounter Care Teams Electric Power Line Repairer Relationship Specialty Start Date End Date Jennifer Harp, HOGSHEAD COOPER [address] [place] [address] PCP - General Family Medicine 12/18/22 documented as of this encounter
--- OUTSIDE RECORDS SUMMARY | 2025-02-21 11:42 | XMS_ITS | Encounter Summary ---
Author Organization [employer] ([place], [place], [place], [place]) Address [address] [place] [address] Care Team Providers Care Microwave Radio Technician Name Role Phone HarpJennifer robles DANYELLE Primary Care Provider [phone] Encounter Details Date Type Department Care Team (Late st Contact Info) Description 10/26/2019 Transcribed Document [facility] Neurology - [address] [id number] Jamal Locke Jr., MD [address] [place] [address] Social History Tobacco Use Types Packs/Day Years Used Date Smoking Tobacco: Never Assessed Sex and Gender Information Value Date Recorded Sex Assigned at Male 11/21/2021 4:44 PM CDT Legal Sex Male 4:44 PM CDT Gender Identity Male 11/21/2021 4:44 PM CDT Sexual Orientation Not on file documented as of this encounter Miscellaneous Notes * Cerner Conversion Note - Jamal Locke Jr., MD - 10/26/2019 1:39 PM EDT DATE OF PROCEDURE: 10/26/2019 SURGEON: Jamal Locke Jr, MD PREOPERATIVE DIAGNOSES: 1. Thoracic stenosis with myelopathy. 2. Lumbar spondylosis with radiculopathy. POSTOPERATIVE DIAGNOSES: 1. Thoracic stenosis with myelopathy. 2. Lumbar spondylosis with radiculopathy. PROCEDURES PERFORMED: 1. T10-11 laminectomy. 2. L3-S1 laminectomy with posterolateral pedicle screw arthrodesis. 3. Both surgeries were used with Airo intraoperative CT scan and Portero neuro navigation. 4. Excision of synovial cyst at thoracic laminectomy site. RETORT FEEDER GROUND BONE: Estrellita Main PA-C. ANESTHESIA: General endotracheal. BLOOD LOSS: Less than 400 mL. COMPLICATIONS: None. SPECIMENS: Disk and synovial cyst. DRAINS: Epidural ALICIA drain to bulb suction at both surgical sites. CONDITION: Stable to PACU. INDICATION FOR PROCEDURE: Mr. Villafuerte is 74 years old. I saw him in the office occasion. He had severe back and radicular leg pain, but also described diffuse bilateral leg weakness. He had very severe stenosis at the levels mentioned above, both the lateral recess and foraminal level. I actually had him undergo a cervical and thoracic MRI scan because of the diffuse nature of his leg weakness and wanted to make sure he did not have any cord compression. Indeed, he has very severe spinal cord compression with cord signal change at T10-11 from thoracic spondylosis with hypertrophy of posterior elements. I called him and recommended we incorporate the thoracic laminectomy into the surgery today and went over everything again with him today. He does have severe cervical stenosis with some mild cord compression, but he does not really have any upper extremity symptoms, and certainly, I thought the worst areas of stenoses were in the thoracic and lumbar region. I went over everything again with the surgery and answered all of his questions and then consent was signed. DESCRIPTION OF PROCEDURE: After informed consent was obtained, the patient was brought to the operating room where general endotracheal anesthesia was induced routinely. I instructed the anesthesiologist to keep the mean arterial pressure over 85 to make sure adequate cord perfusion. A Maradiaga catheter was placed. I turned him prone on the Airo CT scan table using the chest, hip, and thigh pads. Arms were abducted and flexed. All pressure points were padded and protected, and he was secured to the bed with straps per routine. We made sure the neck was in a neutral to slightly flexed position. I marked out the midline of the back. The back was widely prepped and draped in usual sterile fashion. Prophylactic antibiotics were given. A reference array was Steri-Stripped to the gluteal area. We took a scan for navigational purposes. I then marked the skin from L3-S1 in the midline and at the T10-11 level. I used the [employer] drill navigation to place 2 posterior iliac fixation pins in the right posterior iliac crest. Once the fixation pins were placed, a permanent reference array base was clamped across and the construct was stable. The initial scan was used to localize the incision, and I opened the thoracic incision over T10-11 and performed a subperiosteal dissection with Bovie cautery. Josey retractors were placed here after hemostasis was obtained. We then exposed from L3-S1. We placed Josey retractors after we exposed all the facet complexes in the lamina. I had the L2-3, L3-4, L4-5, and L5-S1 facet complexes exposed. Josey retractors were placed. We took a scan for navigational purposes. This allowed me to remove the spinous process of T10 and 11, thin out the lamina at T10 and the superior aspect of the laminectomy. I complete the laminectomy with 2 mm Kerrison punches. As expected, there was severe stenosis here and deformity of the dural sac from hypertrophied elements. There was actually a synovial cyst on the left facet joint that I carefully dissected free with a micro blunt nerve hook, and I sent this for specimen. We obtained a nice decompression. I thought the stenosis at this level was severe. We then made sure hemostasis was complete. I placed some FloSeal in the lateral recess region, washed it away, and placed a Ray-Luiza in the wound superficially. We then placed screws. I used the pointer to select an entry point trajectory into the right S1 pedicle. I drilled in the pedicle, advanced gearshift probe under navigation, placed a 7.0 x 50 screw on the right and then on the left. I placed 7.0 x 50 screws at L5 and L4, and at L3, I placed 7.0 x 55 screws. Prior to placing each screw, I palpated inside the tapped pedicle to make sure that there was no breach and each screw placement seemed appropriate. Please note that we navigated with a gearshift probe to tap in the screw. I then removed the spinous processes from L3-S1, thinned out the lamina with a matchstick drill bit, and then completed the central laminectomy. I drilled out widely on both sides. There was severe lateral recess from hypertrophied facet and thickened ligament at L3-4. At L4. I obtained a nice bilateral lateral recess decompression. There was not any significant lateral recess stenosis at L5-S1. On the right, there was severe foraminal stenosis at L4-5. I came across the pars interarticularis here to decompress the L4 nerve root dorsally. Also on the right, there was severe stenosis at L3-4 and the medial foraminal area. I obtained a nice decompression of the L3 nerve root. On the left, there was severe foraminal stenosis at L4-5 and L5-S1 with L5-S1 probably being worse than L4-5. I drilled out dorsally over the nerve roots on both sides and decompressed dorsally with Kerrison punches. At this point, I decompressed bilateral lateral recess and foraminal areas and I could advance a ball probe out the L3, the L4, the L5, and the S1 foramen. The worst area of stenosis was bilateral L4-5 lateral recess, then L3-4 lateral recess, then the right L4-5 foramen. I elected not to place an interbody cage because we had a significant amount of posterolateral elements that I could place bone graft in there. The screws were long and nicely placed. I thought there would be a benefit to not disrupt the posterior portion of the disk, it would also decrease surgical time and decrease blood loss and potentially decrease postoperative pain. I was happy with the dorsal decompression. Once I placed a channing on each side, I tightened and torqued the set screws. I palpated all the foramen again, and I made sure that there was no abnormal bleeding. FloSeal was placed in each lateral recess region and then washed away. Valsalva showed no CSF leakage. I decorticated the posterolateral elements from L3-S1 and laid allograft ViviGen and autograft bone from the laminectomy. We then took a scan for navigational purposes from T10 down to S1. I confirmed we were at the correct level of T10-11 and confirmed all the hardware placement was appropriate. Soft tissue hemostasis was obtained to both incisions. We tunneled a 15-Cayman Islander round epidural ALICIA drain at both incisions subfascially through a separate stab incision. A drain stitch was applied at skin level of both drains. Both drains were cut to the appropriate length and placed in the wound. Then, the muscle fascia, Lucy's layer, and dermis were closed with interrupted Vicryl sutures on both incisions in the thoracic area. The skin incision was closed with erika. Again, we essentially performed 2 separate operations here under the same anesthesia. I confirmed that the drains were functional. Dressings were applied. The patient went to recovery room in good condition. Estrellita Main PA-C, assisted through the entire operation with tasks such as suctioning, soft tissue retraction, laminectomy, instrumentation placement, nerve root retraction, and wound closure. /[id number] Jamal Locke Jr, MD RDO/AQ / RDO / MODL /[id number] documented in this encounter Plan of Treatment Not on file documented as of this encounter Visit Diagnoses Not on filedocumented in this encounter Care Teams Microwave Radio Technician Relationship Specialty Start Date End Date Jennifer Harp, MALE INFERTILITY SPECIALIST [address] [place] [address] PCP - General Family Medicine 12/18/22 documented as of this encounter
--- OUTSIDE RECORDS SUMMARY | 2025-02-21 11:42 | XMS_ITS | Encounter Summary ---
Author Organization [employer] ([place], [place], [place], [place]) Address [address] [place] [address] Care Team Providers Care Magazine Editor Name Role Phone KatiuskaJennifer Kwesi BASSETT Primary Care Provider [phone] Encounter Details Date Type Department Care Team (Late st Contact Info) Description 10/27/2019 Transcribed Document [facility] [place] Family [place] [facility] [place] [address] ProviderHarsh MD [address] [place] [address] Social History Tobacco Use Types Packs/Day Years Used Date Smoking Tobacco: Never Assessed Sex and Gender Information Value Date Recorded Sex Assigned at Male 11/21/2021 4:44 PM CDT Legal Sex Male 4:44 PM CDT Gender Identity Male 11/21/2021 4:44 PM CDT Sexual Orientation Not on file documented as of this encounter Miscellaneous Notes * Cerner Conversion Note - Harsh ProviderMD - 10/27/2019 10:59 AM CDT UM Authorization Entered On: 10/27/2019 10:59 EDT Performed On: 10/27/2019 10:59 EDT by Gail Pickett Rn-Utilization Review Primary Insurance Authorization Authorization and Policy Numbers : Insurance 1 Health Plan: [employer] CHO[employer] PPO Policy Number: [id number] Authorization Number: [id number] Insurance Primary Name : [employer] CHO[employer] PPO Policy Number: [id number] Authorization Status-Primary : Notification only Reference Number-Primary : [id number] Authorization Number-Primary : [id number] Authorized Service Begin Date-Primary : 10/26/2019 EDT Historical Authorization Comments-Primary : Comment 1: [] [employer] Medicare auth per availity for inpt (RUPERTO RICCI, RN-Utilization Review 10/22/2019 13:05) Gail Pickett Rn-Utilization Review - 10/27/2019 10:59 EDT Electronically signed by [facility] Conversion Technology Support Analyst Cerner at 09/12/2022 10:53 AM CDT documented in this encounter Plan of Treatment Not on file documented as of this encounter Visit Diagnoses Not on filedocumented in this encounter Care Teams Magazine Editor Relationship Specialty Start Date End Date Jennifer Harp, FILM PROCESSING UTILITY WORKER [address] [place] [address] PCP - General Family Medicine 12/18/22 documented as of this encounter
--- OUTSIDE RECORDS SUMMARY | 2025-02-21 11:42 | XMS_ITS | Encounter Summary ---
Author Organization [employer] ([place], [place], [place], [place]) Address [address] [place] [address] Care Team Providers Care Hvac Specialist Name Role Phone HarpJennifer robles Kwesi BASSETT Primary Care Provider [phone] Encounter Details Date Type Department Care Team (Late st Contact Info) Description 10/27/2019 Transcribed Document [facility] [place] Family [place] [facility] [place] [address] ProviderHarsh MD [address] [place] [address] Social History Tobacco Use Types Packs/Day Years Used Date Smoking Tobacco: Never Assessed Sex and Gender Information Value Date Recorded Sex Assigned at Male 11/21/2021 4:44 PM CDT Legal Sex Male 4:44 PM CDT Gender Identity Male 11/21/2021 4:44 PM CDT Sexual Orientation Not on file documented as of this encounter Miscellaneous Notes * Cerner Conversion Note - Harsh ProviderMD - 10/27/2019 2:00 PM CDT Pain Assessment Entered On: 10/27/2019 17:05 EDT Performed On: 10/27/2019 15:15 EDT by Tara Steinberg, RN Intervention Information: acetaminophen Performed by Tara Steinberg, RN on 10/27/2019 14:15:00 EDT acetaminophen,650mg Oral Pain Assessment Pain Assessment : Follow-up assessment Pain Scale Goal : 4 Pain Scale Used : 0-10 Scale Tara Steinberg RN - 10/27/2019 17:05 EDT Pain Scale Intensity : 1 Tara Steinberg RN - 10/27/2019 17:05 EDT Image 4 - Images currently included in the form version of this document have not been included in the text rendition version of the form. documented in this encounter Plan of Treatment Not on file documented as of this encounter Visit Diagnoses Not on filedocumented in this encounter Care Teams Hvac Specialist Relationship Specialty Start Date End Date Jennifer Harp, MANAGER MSW [address] [place] [address] PCP - General Family Medicine 12/18/22 documented as of this encounter
--- OUTSIDE RECORDS SUMMARY | 2025-02-21 11:42 | XMS_ITS | Encounter Summary ---
Author Organization [employer] ([place], [place], [place], [place]) Address [address] [place] [address] Care Team Providers Care Spa Concierge Name Role Phone HarpJennifer robles Kwesi BASSETT Primary Care Provider [phone] Encounter Details Date Type Department Care Team (Late st Contact Info) Description 10/27/2019 Transcribed Document [facility] [place] Family Medicine [facility] [place] [address] ProviderHarsh MD [address] [place] [address] Social History Tobacco Use Types Packs/Day Years Used Date Smoking Tobacco: Never Assessed Sex and Gender Information Value Date Recorded Sex Assigned at Male 11/21/2021 4:44 PM CDT Legal Sex Male 4:44 PM CDT Gender Identity Male 11/21/2021 4:44 PM CDT Sexual Orientation Not on file documented as of this encounter Miscellaneous Notes * Cerner Conversion Note - Harsh ProviderMD - 10/27/2019 5:00 PM CDT Chart Check - Review Order Profile Entered On: 10/27/2019 17:06 EDT Performed On: 10/27/2019 17:00 EDT by Tara Steinberg, RN Chart Check Powerplans Initiated/Discontinued as Appropriate : Yes All Active Orders Reviewed : Yes Tara Steinberg, RN - 10/27/2019 17:06 EDT documented in this encounter Plan of Treatment Not on file documented as of this encounter Visit Diagnoses Not on filedocumented in this encounter Care Teams Spa Concierge Relationship Specialty Start Date End Date Jennifer Harp, DENTAL CREAM MAKER [address] [place] [address] PCP - General Family Medicine 12/18/22 documented as of this encounter
--- OUTSIDE RECORDS SUMMARY | 2025-02-21 11:42 | XMS_ITS | Encounter Summary ---
Author Organization [employer] ([place], [place], [place], [place]) Address [address] [place] [place] [address] Care Team Providers Care Objective C Developer Name Role Phone KatiuskaJennifer Kwesi BASSETT Primary Care Provider [phone] Encounter Details Date Type Department Care Team (Late st Contact Info) Description 10/28/2019 Transcribed Document [facility] [place] Family [place] [facility] [place] [address] ProviderHarsh MD [address] [place] [address] Social History Tobacco Use Types Packs/Day Years Used Date Smoking Tobacco: Never Assessed Sex and Gender Information Value Date Recorded Sex Assigned at Male 11/21/2021 4:44 PM CDT Legal Sex Male 4:44 PM CDT Gender Identity Male 11/21/2021 4:44 PM CDT Sexual Orientation Not on file documented as of this encounter Miscellaneous Notes * Cerner Conversion Note - Harsh ProviderMD - 10/28/2019 10:00 AM CDT Pain Assessment Entered On: 10/28/2019 9:24 EDT Performed On: 10/28/2019 9:34 EDT by Tara Steinberg, RN Intervention Information: acetaminophen Performed by Tara Steinberg, RN on 10/28/2019 08:34:00 EDT acetaminophen,650mg Oral Pain Assessment Pain Assessment : Follow-up assessment Pain Scale Goal : 4 Pain Scale Used : 0-10 Scale Tara Steinberg RN - 10/28/2019 9:24 EDT Pain Scale Intensity : 3 Tara Steinberg RN - 10/28/2019 9:24 EDT Image 4 - Images currently included in the form version of this document have not been included in the text rendition version of the form. documented in this encounter Plan of Treatment Not on file documented as of this encounter Visit Diagnoses Not on filedocumented in this encounter Care Teams Objective C Developer Relationship Specialty Start Date End Date Jennifer Harp, HAND SCRAPER [address] [place] [address] PCP - General Family Medicine 12/18/22 documented as of this encounter
--- OUTSIDE RECORDS SUMMARY | 2025-02-21 11:42 | XMS_ITS | Encounter Summary ---
Author Organization [employer] ([place], [place], [place], [place]) Address [address] [place] [address] Care Team Providers Care Records Management Assistant Name Role Phone KatiuskaCayla Kwesi BASSETT Primary Care Provider [phone] Encounter Details Date Type Department Care Team (Late st Contact Info) Description 10/27/2019 Transcribed Document [facility] [place] Family Medicine [place] [address] ProviderHarsh MD [address] [place] [address] Social History Tobacco Use Types Packs/Day Years Used Date Smoking Tobacco: Never Assessed Sex and Gender Information Value Date Recorded Sex Assigned at Male 11/21/2021 4:44 PM CDT Legal Sex Male 4:44 PM CDT Gender Identity Male 11/21/2021 4:44 PM CDT Sexual Orientation Not on file documented as of this encounter Miscellaneous Notes * Cerner Conversion Note - Harsh ProviderMD - 10/27/2019 4:00 PM CDT Initial Discharge Planning Entered On: 10/27/2019 16:03 EDT Performed On: 10/27/2019 16:00 EDT by TY CAMPBELL, RN-Coordinator Of Genetic Services Initial Assessment I Previously Documented Living Environment : No qualifying data available. Living Situation : Home Patient Lives With : Spouse Is the Patient a Caregiver at Home? : No Emergency Contact #1 : joe Emergency Contact #1 Emergency Contact #1 Relationship : spouse Emergency Contact #2 : none Emergency Contact #2 Phone Number : none Emergency Contact #2 Relationship : none Enter Doctors Name : CAYLA HARP NP-FAM Does Patient have PCP Listed? : Yes TY CAMPBELL RN-Coordinator Of Genetic Services - 10/27/2019 16:00 EDT Initial Assessment II Sensory and Motor Deficits : Weakness Current Home Treatments and Equipment : Cane, Elevated toilet seat, Safety rails/bars, Walker Does the Patient have a Floor to SNF Benefit? : No TY CAMPBELL RN-Coordinator Of Genetic Services - 10/27/2019 16:00 EDT Discharge Needs I Anticipated Discharge Date : 10/28/2019 EDT Anticipated Discharge To, CM : Acute Care Facility, jail facility Current Home Treatment/Equipment : Current Home Treatment/Equipment No qualifying data available. Documentation Status Complete : Yes TY CAMPBELL RN-Coordinator Of Genetic Services - 10/27/2019 16:00 EDT Discharge Needs II Professional Skilled Services : Professional Skilled Services No qualifying data available. Needs Assistance with Transportation : No Discharge Options Discussed with Patient : Acute rehabilitation, Short term rehabilitation TY CAMPBELL RN-Coordinator Of Genetic Services - 10/27/2019 16:00 EDT Narrative Note Narrative Note : 74yo male pt s/p T10-11 lami/L3-S1 lami/excision of cyst. Met with pt at bedside to discuss DCP. Pt lives with his spouse. He states she is not able to help him physically and requests rehab at [facility]. [facility]. Precert initated. D/W Kendrick Guerrero, and bedside RN Erin. STAPLES will follow. TY CAMPBELL RN-Coordinator Of Genetic Services - 10/27/2019 16:00 EDT Electronically signed by [facility] Conversion Polyethylene Combiner Cerner at 09/12/2022 10:52 AM CDT documented in this encounter Plan of Treatment Not on file documented as of this encounter Visit Diagnoses Not on filedocumented in this encounter Care Teams Records Management Assistant Relationship Specialty Start Date End Date Cayla Harp, TURBINATED BONE GRINDER [address] [place] [address] PCP - General Family Medicine 12/18/22 documented as of this encounter
--- OUTSIDE RECORDS SUMMARY | 2025-02-21 11:42 | XMS_ITS | Encounter Summary ---
Author Organization [employer] ([place], [place], [place], [place]) Address [address] [place] [address] Care Team Providers Care Retail Wireless Sales Consultant Name Role Phone HarpJennifer robles Kwesi BASSETT Primary Care Provider [phone] Encounter Details Date Type Department Care Team (Late st Contact Info) Description 10/22/2019 Transcribed Document [facility] [place] Family [place] [facility] [address] ProviderHarsh MD [address] [place] [address] Social History Tobacco Use Types Packs/Day Years Used Date Smoking Tobacco: Never Assessed Sex and Gender Information Value Date Recorded Sex Assigned at Male 11/21/2021 4:44 PM CDT Legal Sex Male 4:44 PM CDT Gender Identity Male 11/21/2021 4:44 PM CDT Sexual Orientation Not on file documented as of this encounter Miscellaneous Notes * Cerner Conversion Note - Harsh ProviderMD - 10/22/2019 1:05 PM CDT UM Authorization Entered On: 10/22/2019 13:06 EDT Performed On: 10/22/2019 13:05 EDT by RUPERTO RICCI RN-Utilization Review Primary Insurance Authorization Authorization and Policy Numbers : Insurance 1 Health Plan: [employer] PPO Policy Number: [id number] Authorization Number: Insurance Primary Name : [employer] PPO Policy Number: [id number] Authorization Status-Primary : Notification only Reference Number-Primary : [id number] Authorization Number-Primary : [id number] Authorized Service Begin Date-Primary : 10/26/2019 EDT Authorization Comments-Primary : [] [employer] Medicare auth per availity for inpt Historical Authorization Comments-Primary : No Authorization Comments Found RUPERTO RICCI RN-Utilization Review - 10/22/2019 13:05 EDT Electronically signed by [facility] Conversion Transitional Care Manager Cerner at 09/12/2022 10:51 AM CDT documented in this encounter Plan of Treatment Not on file documented as of this encounter Visit Diagnoses Not on filedocumented in this encounter Care Teams Retail Wireless Sales Consultant Relationship Specialty Start Date End Date Jennifer Harp, STORE LEADER [address] [place] [address] PCP - General Family Medicine 12/18/22 documented as of this encounter
--- OUTSIDE RECORDS SUMMARY | 2025-02-21 11:42 | XMS_ITS | Encounter Summary ---
Author Organization [employer] ([place], [place], [place], [place]) Address [address] [place] [address] Care Team Providers Care Financial Systems Manager Name Role Phone KatiuskaJennifer Kwesi BASSETT Primary Care Provider [phone] Encounter Details Date Type Department Care Team (Late st Contact Info) Description 10/26/2019 Transcribed Document [facility] [place] Family [place] [address] ProviderHarsh MD [address] [place] [address] Social History Tobacco Use Types Packs/Day Years Used Date Smoking Tobacco: Never Assessed Sex and Gender Information Value Date Recorded Sex Assigned at Male 11/21/2021 4:44 PM CDT Legal Sex Male 4:44 PM CDT Gender Identity Male 11/21/2021 4:44 PM CDT Sexual Orientation Not on file documented as of this encounter Miscellaneous Notes * Cerner Conversion Note - Historical ProviderMD - 10/26/2019 12:26 PM CDT Evaluation, Physical Therapy Entered On: 10/27/2019 10:44 EDT Performed On: 10/27/2019 9:57 EDT by Issa Toussaint, Student-Physical Therapist General Information, PT Visit Type, PT : Initial evaluation Issa Toussaint, Student-Physical Therapist - 10/27/2019 9:57 EDT Patient Orders : Order Date Order Ordering 10/26/2019 12:26 Physical Therapy Eval and Treat Ordered By: TANIA BEE MD-SNU Active Diagnoses : No Qualifying Diagnoses ISSA VALENTE, PT - 10/27/2019 11:46 EDT Therapy Diagnosis, PT : Impaired mobility. ISSA VALENTE, PT - 10/27/2019 11:36 EDT Onset of Problem, PT : 10/26/2019 EDT Issa Toussaint Student-Physical Therapist - 10/27/2019 9:57 EDT Admission Date : 10/26/2019 06:44 ISSA VALENTE, PT - 10/27/2019 11:46 EDT Co-treated by, PT : Occupational Therapist Issa Toussaint, Yelena-Physical Therapist - 10/27/2019 9:57 EDT Personal Devices : Personal Devices Glasses Assistive Devices : Assistive Devices No Devices Recorded ISSA VALENTE, PT - 10/27/2019 11:[address] : Log roll precautions, Other: HOB elevated to 30 deg Issa Toussaint Student-Physical Therapist - 10/27/2019 9:57 EDT General Information Comment, PT : Dx: Spondylolisthesis Hx: CAD, BLE weakness, renal disease (stage 4), greenlight laser of prostate. Sx:L3-S1 laminectomy & posteriolateral fusion and T10-L1 laminectomy and synovial cyst removal (10/26/2019). Order: with BRACE. ISSA VALENTE, PT - 10/27/2019 11:46 EDT General Status Patient Received Status : Supine in bed Treatment Start Time : 10/27/2019 9:23 EDT Patient Left Status : Up in chair Treatment End Time : 10/27/2019 9:51 EDT Treatment Time : 28 Minute(s) Issa Toussaint Student-Physical Therapist - 10/27/2019 9:57 EDT History and Environment Living Situation, Therapy : Home Patient Lives With : Spouse Persons Assisting Patient at Home : Spouse Professional Skilled Services : None Persons Providing Information : Patient Home Equipment Therapy, PT : Cane, Shower Equipment Home Setup : Multi-level home Bedroom Location : Downstairs Bathroom #1 Location : Downstairs Stairs : Yes Stair Location(s) : Inside, Outside Inside Stairs, Number of Steps : 8 Stairs Inside Comment : 2 sets of 8 steps Outside Stairs, Number of Steps : 2 Outside Stairs Comment : three entrances into house all had at least 1 step Railing Inside : Yes Inside Railing Position : Right, going up Railing Outside : Yes Issa Toussaint, Student-Physical Therapist - 10/27/2019 9:57 EDT Prior LOF Assist with ADL Comment : Patient reported requiring assistance with ADLs for past 6 weeks due to BLE weakness/numbness; prior to reported 6 weeks patient was independent with all ADLs. ISSA VALENTE, PT - 10/27/2019 11:36 EDT Upper Extremity Right UE Active ROM : WFL Left UE Active ROM : WFL Issa Toussaint, Student-Physical Therapist - 10/27/2019 9:57 EDT Lower Extremity RLE Active ROM : [facility] LLE Active ROM : [facility] Issa Toussaint, Student-Physical Therapist - 10/27/2019 9:57 EDT Right Lower Extremity MMT Knee Flexion (0-140) : 3/fair Knee Extension (0-0) : 3+/fair Ankle Dorsiflexion (0-20) : 4/good Ankle Plantarflexion (0-45) : 4/good Issa Toussaint, Student-Physical Therapist - 10/27/2019 9:57 EDT Left Lower Extremity MMT Knee Flexion (0-140) : 3/fair Knee Extension (0-0) : 3/fair Ankle Dorsiflexion (0-20) : 4/good Ankle Plantarflexion (0-45) : 4/good Issa Toussaint, Student-Physical Therapist - 10/27/2019 9:57 EDT Functional Mobility Mobility Grid Bed Roll Left : Rehab Minimal assistance Bed Scooting : Rehab Minimal assistance Supine to Sit : Rehab Minimal assistance Sit to Stand : Rehab Minimal assistance Stand to Sit : Rehab Minimal assistance Issa Toussaint Student-Physical Therapist - 10/27/2019 9:57 EDT Sit to Stand Device : Walker, front wheel Stand to Sit Device : Walker, front wheel Issa Toussaint, Student-Physical Therapist - 10/27/2019 9:57 EDT Gait Training/Assessment, PT Gait Assistance Level : Assist, minimal Issa Toussaint, Student-Physical Therapist - 10/27/2019 9:57 EDT Walking Distance : 100' Ambulatory Devices : Gait belt, Walker, front wheel ISSA VALENTE, PT - 10/27/2019 11:36 EDT Gait Deviations : Yes Issa Toussaint, Student-Physical Therapist - 10/27/2019 9:57 EDT Gait Training Comment : Upon amb, pt initially displayed irregular step lengths; following several steps pt displayed a more normal gait pattern. Pt required v/c to maintain upright posture and to stay within his walker. order for LSO, but has yet to arrive. Pt amb w/o LSO. ISSA VALENTE, PT - 10/27/2019 11:36 EDT Cognition Assessment, PT Orientation : Oriented x 4 Attention Assessment : Present Issa Toussaint Student-Physical Therapist - 10/27/2019 9:57 EDT Edu Topics Physical Therapy Education Grid Bed Mobility Training : Returns demonstration Gait Training : Returns demonstration Role of Physical Therapy : Verbalizes understanding Use of Assistive Device : Returns demonstration, Needs reinforcement Issa Toussaint Student-Physical Therapist - 10/27/2019 9:57 EDT Teaching/Learning Assessment ISSA VALENTE, PT - 10/27/2019 11:36 EDT Indication Assesessment, PT Physical Therapy Indicated : Yes PT Problem List : Impaired, activities daily living, Impaired, bed mobility, Impaired, endurance tolerance, Impaired, gait, Impaired, transfers Potential Barriers To Therapy : Acuity of Illness, Pain Rehabilitation Potential : Good Issa Toussaint Student-Physical Therapist - 10/27/2019 9:57 EDT Plan of Care, PT PT Tx Plan/Goals Established w Patient : Yes PT Frequency Rehab : Daily, twice (bid) PT Duration Rehab : Fourteen days PT Treatments Planned : Gait training, Stair training, Transfer training Issa Toussaint Student-Physical Therapist - 10/27/2019 9:57 EDT Short Term Goals Mobility/Bed Mobility STG PT Grid Goal #1 Activity : Supine to sit (Comment: Log-roll [Issa Toussaint Student-Physical Therapist - 10/27/2019 11:36 EDT] ) Assist : Supervision or set-up Date to Meet : 11/03/2019 EDT Goal Status : Initial goal ISSA VALENTE PT - 10/27/2019 11:36 EDT Transfer STG Grid Goal #1 Destination : Chair, with arms Assist : Supervision or set-up Date to Meet : 11/03/2019 EDT Goal Status : Intial Goal ISSA VALENTE PT - 10/27/2019 11:36 EDT Ambulation STG Grid Goal #1 Device : Walker, front wheel Distance : 250' Assist : Supervision or set-up Date to Meet : 11/03/2019 EDT Goal Status : Intial Goal ISSA VALENTE PT - 10/27/2019 11:36 EDT Stairs STG Grid Goal #1 Device : Cane, single point Number of Steps : 8 Handrail(s) : One handrail Assist : Assist, minimal Date to Meet : 11/03/2019 EDT Goal Status : Initial goal ISSA VALENTE PT - 10/27/2019 11:36 EDT Content Strategist Goals Mobility/Bed Mobility LTG PT Grid Goal #1 Activity : Supine to sit (Comment: log- rolling [Issa Toussaint, Student-Physical Therapist - 10/27/2019 11:36 EDT] ) Assist : Independent, modified Date to Meet : 11/10/2019 EDT Goal Status : Intial Goal ISSA VALENTE PT - 10/27/2019 11:36 EDT Transfer LTG Grid Goal #1 Destination : Chair, with arms Assist : Independent, modified Equipment : Walker, front wheel Date to Meet : 11/10/2019 EDT Goal Status : Intial Goal ISSA VALENTE PT - 10/27/2019 11:36 EDT Ambulation LTG Grid Goal #1 Device : Walker, front wheel Distance : 400' Assist : Independent, modified Date to Meet : 11/10/2019 EDT Goal Status : Intial Goal ISSA VALENTE PT - 10/27/2019 11:36 EDT Stairs LTG Grid Goal #1 Device : None Number of Steps : 8 Handrail(s) : One handrail (Comment: R side [Issa Toussaint, Student-Physical Therapist - 10/27/2019 11:36 EDT] ) Assist : Independent, modified Date to Meet : 11/10/2019 EDT Goal Status : Intial Goal ISSA VALENTE PT - 10/27/2019 11:36 EDT Treatment Note Subjective Comment : Patient agreeable to PT/OTx and was okayed by nursing. Patient's Response to Treatment : Following supine to sit, patient reported a slight increase in pain (ratin). Issa Toussaint Student-Physical Therapist - 10/27/2019 9:57 EDT Additional Objective Information : order for LSO, but has yet to arrive. Thus, during session patient ambulated without the use of his brace, but was instructed on proper precautions (BLTs) and verbally cued to maintain a neutral spine throughout session. Throughout session, patient recieved 2L of O2 via nasal cannula. PT reviewed/ initated HEP (10/26), HEP consisted of ankle pumps, quad sets, glut sets and was re-educated on lumbar precautions (BLTs). ISSA VALENTE, PT - 10/27/2019 11:36 EDT Assessment : Patient presents with decreased mobility secondary to posterior lumbar fusion. Patient would benefit from PT to improve mobility, muscular strength/ endurance, and cardiovascular endurance. Issa Toussaint, Student-Physical Therapist - 10/27/2019 9:57 EDT Plan for Treatment : Con't PTx. PT has reviewed and agrees with note. ISSA VALENTE, PT - 10/27/2019 11:36 EDT Pain Assessment Pain Score Pre-Intervention : 2 Pain Score During-Intervention : 3 Location : Back, lower Quality : Tightness Pain Worsened by : Other: standing Pain Improved by : Deep breathing, Medication Issa Toussaint, Student-Physical Therapist - 10/27/2019 9:57 EDT Image 1 - Images currently included in the form version of this document have not been included in the text rendition version of the form. Anticipated Discharge Needs, OT/PT Anticipated Discharge to : Home, with home health (Comment: S1 [ISSA VALENTE, PT - 10/27/2019 11:36 EDT] ) ISSA VALENTE PT - 10/27/2019 11:36 EDT Anticipated Home Equipment : Brace Recommend Continued Therapy at Discharge : Yes Issa Toussaint Student-Physical Therapist - 10/27/2019 9:[address] [facility] PT Therap. Exercise 15 min : 1 PT Eval Low Complexity : 1 Issa Toussaint Student-Physical Therapist - 10/27/2019 9:57 EDT documented in this encounter Plan of Treatment Not on file documented as of this encounter Visit Diagnoses Not on filedocumented in this encounter Care Teams Financial Systems Manager Relationship Specialty Start Date End Date Jennifer Harp, CONVEYOR ATTENDANT [address] [place] [address] PCP - General Family Medicine 12/18/22 documented as of this encounter
--- OUTSIDE RECORDS SUMMARY | 2025-02-21 11:42 | XMS_ITS | Referral Summary ---
Author Organization [employer] ([place], [place], [place], [place]) Address [address] [place] [address] Care Team Providers Care Rotoformer Backtender Name Role Phone Katiuska Jennifer Orosco APRN Primary Care Provider [phone] Allergies Active Allergy Reactions Criticality Noted Date Comments Penicillin Other (See Comments) 12/17/2022 1told reaction in childhood and does not know otherwise. Cannot recall if tolerates cephalosporins; states has taken PCN without problem Medications alfuzosin (UROXATRAL) 10 mg 24 hr tablet Take 1 tablet (10 mg total) by mouth daily. 3 Active losartan (COZAAR) 50 MG tablet Take 1 tablet (50 mg total) by mouth daily. 3 Active metoprolol succinate (TOPROL-XL) 25 MG 24 hr tablet Take 1 tablet (25 mg total) by mouth daily. 3 Active omeprazole (PriLOSEC) 40 MG capsule Take 1 capsule (40 mg total) by mouth daily. 3 Active oxybutynin (DITROPAN-XL) 10 MG 24 hr tablet Take 1 tablet (10 mg total) by mouth daily. 3 Active rosuvastatin (CRESTOR) 10 MG tablet Take 1 tablet (10 mg total) by mouth nightly. 3 Active sertraline (ZOLOFT) 50 MG tablet Take 1 tablet (50 mg total) by mouth daily. 3 Active multivitamin per tablet Take 1 tablet by mouth every evening. Active triamcinolone (NASACORT) 55 mcg nasal inhaler 2 sprays by intraNASAL route as needed for rhinitis. Active difluprednate (DurezoL) 0.05 % Drop Place 1 drop into the left eye every other day. Active acetaminophen (TYLENOL) 500 MG tablet Take 2 tablets (1,000 mg total) by mouth every 6 (six) hours as needed for pain. Active aspirin 81 MG EC tablet Take 1 tablet (81 mg total) by mouth daily Resume 06/15/24. 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 06/10/2024 Myelopathy 12/26/2022 Anxiety 12/18/2022 Arteriosclerosis of coronary artery 12/18/2022 Hard of hearing 12/18/2022 Hepatic cirrhosis 12/18/2022 Hypercholesterolemia 12/18/2022 LINK (obstructive sleep apnea) 12/18/2022 Overview (12/18/2022): 2uses CPAP Stage 3 chronic kidney disease 10/11/2020 Essential hypertension 02/26/2019 Overview (12/18/2022): Target blood pressure <130/80 mmHg Last Assessment & Plan: Hypertension is controlled Continue losartan 50 mg daily Continue metoprolol succinate 25 mg daily GERD (gastroesophageal reflux disease) 9 Social History Tobacco Use Types Packs/Day Years Used Date Smoking Tobacco: Never Passive Smoke Exposure: Past Smokeless Tobacco: Never Alcohol Use Standard Drinks/Week Comments Never 0 (1 standard drink = 0.6 oz pur e alcohol) Family and Community Support Answer Jett e Recorded Help with Day to Day Activities Not on file 06/07/2023 Feeling Lonely or Isolated Not on file 06/07 Educational Attainment Answer Date Gopal rded Speak language other than Kuwaiti at home Not on file 06/07/2023 Want help with school or training Not on file 06/07/2023 Substance Use Answer Date Recorded Used prescription meds for non-medical reasons N ot on file 06/07/2023 Used illegal drugs past 12 months Not on file 06/07/2023 Sex and Gender Information Value Date Recorded Sex Assigned at Male 11/21/2021 4:44 PM CDT Legal Sex Male 4:44 PM CDT Gender Identity Male 11/21/2021 4:44 PM CDT Sexual Orientation Not on file Last Filed Vital Signs Vital Sign Reading Time Taken Comments Blood Pressure 115/55 06/11/2024 11:35 AM EST Pulse 91 06/11/2024 11:35 AM EST Temperature 36.5 C (97.7 F) 06/11/2024 9:06 AM EST Respiratory Rate 16 06/11/2024 11:15 AM EST Oxygen Saturation 99% 06/11/2024 1:00 PM EST Inhaled Oxygen Concentration - - Weight 81.7 kg (180 lb 3.2 oz) 06/08/2024 7:44 A M EST Height 170.2 cm (5' 7 ) 06/02/2024 1:42 PM EST Body Mass Index 28.22 06/02/2024 1:42 PM EST Plan of Treatment Not on file Medical Devices Implanted Type Area Leadite Man Device Identifier Shelf Expiration Date Model / Serial / Lot Bone Vivigen Formable Bl-1600-001 - [id number] Implanted:Qty : 1 on 12/26/2022 by Jamal Locke Jr., MD at [facility] IMPLANTS N/A: Spine Cervical LIFENET:LIFENET TRANSPLANT SRV 11/13/2023 BL-1600-0 / [id number] / Cage Eit Cif H 7mm [id number] - [id number] Implanted:Qty : 1 on 12/26/2022 by Jamal Locke Jr., MD at [facility] IMPLANTS N/A: Spine Cervical J &J:DEPUY:DEPUY SPINE 11/23/2025 [id number] / / [id number] Pin Compr Peak Pa 14mm 2749--014 - [id number] Implanted:Qty : 2 on 12/26/2022 by Jamal Locke Jr., MD at [facility] IMPLANTS N/A: Spine Cervical J &J:DEPUY:DEPUY SPINE 14 / 2749-03-0 14 / Plt Ant Skyln Hybrd Lvl1 16mm - [id number] Implanted:Qty : 1 on 12/26/2022 by Jamal Locke Jr., MD at [facility] IMPLANTS N/A: Spine Cervical J &J:DEPUY:DEPUY SPINE 1867-05-0 16 / 0 16 / Scr Skyln Vari Sd 16mm - [id number] Implanted:Qty : 4 on 12/26/2022 by Jamal Locke Jr., MD at [facility] IMPLANTS N/A: Spine Cervical J &J:DEPUY:DEPUY SPINE 50-0 16 / 16 / Scr Eliseo Viper 5.5 Ti [id number] 1796-10-099 - [id number] Implanted:Qty : 1 on 06/08/2024 by Jamal Locke Jr., MD at [facility] IMPLANTS N/A: Back J &J:DEPUY:DEPUY SPINE 06-0 99 / 1796-10-0 99 / Scr Eliseo Viper 5.5 Ti 21t10mz 06-080 - [id number] Implanted:Qty : 1 on 06/08/2024 by Jamal Locke Jr., MD at [facility] IMPLANTS N/A: Back J &J:DEPUY:DEPUY ORTHOPAEDIC 1796-06-0 80 / 1796-10-0 80 / Mis Natasha Ply Scrw Set Ti 15-000 - [id number] Implanted:Qty : 10 on 06/08/2024 by Jamal Locke Jr., MD at [facility] IMPLANTS N/A: Back J &J:DEPUY:DEPUY SPINE 15-0 00 / 15-0 00 / Be Spinal 135x5.55mm -135 - [id number] Implanted:Qty : 2 on 06/08/2024 by Jamal Locke Jr., MD at [facility] IMPLANTS N/A: Back J &J:DEPUY:DEPUY SPINE -1 35 / 1 35 / Cage T/Plif 10mm Eit 8d 15/02 [id number] - [id number] Implanted:Qty : 1 on 06/08/2024 by Jamal Locke Jr., MD at [facility] IMPLANTS N/A: Spine Lumbar J &J:DEPUY:DEPUY SPINE 02/23/2034 [id number] / / [id number] Bone Vivigen Formable Cell 5cc Bl-1600-002 - [id number] Implanted:Qty : 1 on 06/08/2024 by Jamal Locke Jr., MD at [facility] IMPLANTS N/A: Spine Lumbar LIFENET:LIFENET TRANSPLANT SRV 06/03/2025 BL-1600-0 02 / [id number] / Scr Spne Yuniel Fix 7x55mm 755 - [id number] Implanted:Qty : 2 on 06/08/2024 by Jamal Locke Jr., MD at [facility] IMPLANTS N/A: Back J &J:DEPUY:DEPUY SPINE 55 / 55 / Scr Spne Yuniel Fix 7x45mm 745 - [id number] Implanted:Qty : 1 on 06/08/2024 by Jamal Locke Jr., MD at [facility] IMPLANTS N/A: Back J &J:DEPUY:DEPUY SPINE 45 / 45 / Insurance [facility] [place] [address] Advance Directives For more information, please contact: [phone] * Full Code (Latest Code Status on File) Date Activated Date Inactivated Comments 12/26/2022 9:35 AM 12/27/2022 3:09 PM Healthcare Agents on File Name Relationship Healthcare Agent Renetta shultz Communication Mago Villafuerte Spouse Healthcare Decision-Maker Care Teams Rotoformer Backtender Relationship Specialty Start Date End Date Jennifer Harp, COMMISSION CLERK [address] [place] [address] PCP - General Family Medicine 12/18/22
--- OUTSIDE RECORDS SUMMARY | 2025-02-21 11:42 | XMS_ITS | Encounter Summary ---
Author Organization [employer] ([place], [place], [place], [place]) Address [address] [place] [address] Care Team Providers Care Senior Operator Name Role Phone Jennifer Harp DANYELLE Primary Care Provider [phone] Encounter Details Date Type Department Care Team (Late st Contact Info) Description 10/26/2019 Transcribed Document [facility] [place] [facility] [place] [address] ProviderHarsh MD [address] [place] [address] Social History Tobacco Use Types Packs/Day Years Used Date Smoking Tobacco: Never Assessed Sex and Gender Information Value Date Recorded Sex Assigned at Male 11/21/2021 4:44 PM CDT Legal Sex Male 4:44 PM CDT Gender Identity Male 11/21/2021 4:44 PM CDT Sexual Orientation Not on file documented as of this encounter Miscellaneous Notes * [employer]ner Conversion Note - Harsh ProviderMD - 10/26/2019 8:57 AM CDT [facility] Main OR PACU Summary Primary Physician: TANIA BEE MD-SNU Finalized Date/Time: 10/26/19 14:25:10 Pt. Name: VILLAFUERTE JAMIR Coleman /Sex: 1945 Male Med Rec #: [id number] Physician: TANIA BEE MD-SNU Financial #: [id number] Pt. Type: I Room/Bed: 6/1 Admit/Disch: 10/26/19 06:44:00 - Institution: [facility] Main OR PACU I Case Times Entry 1 In PACU I 10/26/19 12:25:00 Ready for PACU 10/26/19 14:24:00 Discharge Discharge from PACU 10/26/19 14:24:00 I Last Modified By: MANUEL GATES RN 10/26/19 14:24:55 Finalized By: MANUEL GATES, RN Document Signatures Signed By: MANUEL GATES RN 10/26/19 14:25 Electronically signed by [facility] Conversion Server Software Engineer Cerner at 09/12/2022 11:00 AM CDT documented in this encounter Plan of Treatment Not on file documented as of this encounter Visit Diagnoses Not on filedocumented in this encounter Care Teams Senior Operator Relationship Specialty Start Date End Date Jennifer Harp, DRILL OPERATOR PNEUMATIC [address] [place] [address] PCP - General Family Medicine 12/18/22 documented as of this encounter
--- OUTSIDE RECORDS SUMMARY | 2025-02-21 11:42 | XMS_ITS | Encounter Summary ---
Author Organization [employer] ([place], [place], [place], [place]) Address [address] [place] [address] Care Team Providers Care Maintenance Instructor Name Role Phone KatiuskaJennifer Kwesi BASSETT Primary Care Provider [phone] Encounter Details Date Type Department Care Team (Late st Contact Info) Description 07/09/2019 Transcribed Document [facility] [place] [facility] [place] [address] ProviderHarsh MD [address] [place] [address] Social History Tobacco Use Types Packs/Day Years Used Date Smoking Tobacco: Never Assessed Sex and Gender Information Value Date Recorded Sex Assigned at Male 11/21/2021 4:44 PM CDT Legal Sex Male 4:44 PM CDT Gender Identity Male 11/21/2021 4:44 PM CDT Sexual Orientation Not on file documented as of this encounter Miscellaneous Notes * [employer]ner Conversion Note - Historical ProviderMD - 07/09/2019 5:10 PM CHILD CARE TEACHER DATE OF SERVICE: 07/06/2019 ASV TITRATION PRIMARY PROVIDER: Dr. Jamal Orozco. RESULTS: 1. Sleep architecture. a. Total recording time was 87 minutes. b. Total sleep time was 87 minutes. 2. Sleep stages: Patient was primarily in stage I and II sleep. 3. Sleep continuity arousal index was elevated at 30. 4. Advanced therapy pressure distribution, patient was titrated to a final pressure with an E-min of 6 and E-max of 20, pressure support 0/15 and inspiratory max of 25. Breath rate was auto. Patient's minimum O2 saturation at this pressure was 90. His AHI remained elevated at 25. IMPRESSION: The patient did develop treatment emergent centrals. We will initially try treatment with bilevel therapy, but may need to resort to assisted Servo ventilation depending on his response to therapy. /[id number] Pam Alix Hayes MD PW/AQ / PW / MODL /[id number] CC: Dr. Jamal Oorzco Electronically signed by [facility], [facility] Conversion Director Clinical Applications Cerner at 09/12/2022 11:08 AM CDT documented in this encounter Plan of Treatment Not on file documented as of this encounter Visit Diagnoses Not on filedocumented in this encounter Care Teams Maintenance Instructor Relationship Specialty Start Date End Date Jennifer Harp, PLASTERING CONTRACTOR [address] [place] [address] PCP - General Family Medicine 12/18/22 documented as of this encounter
--- OUTSIDE RECORDS SUMMARY | 2025-02-21 11:42 | XMS_ITS | Encounter Summary ---
Author Organization [employer] ([place], [place], [place], [place]) Address [address] [place] [address] Care Team Providers Care Industrial Hygiene Engineer Name Role Phone KatiuskaJennifer Kwesi BASSETT Primary Care Provider [phone] Encounter Details Date Type Department Care Team (Late st Contact Info) Description 10/26/2019 Transcribed Document [facility] [place] Medicine [facility] [place] [address] ProviderHarsh MD [address] [place] [address] Social History Tobacco Use Types Packs/Day Years Used Date Smoking Tobacco: Never Assessed Sex and Gender Information Value Date Recorded Sex Assigned at Male 11/21/2021 4:44 PM CDT Legal Sex Male 4:44 PM CDT Gender Identity Male 11/21/2021 4:44 PM CDT Sexual Orientation Not on file documented as of this encounter Miscellaneous Notes * Cerner Conversion Note - Harsh ProviderMD - 10/26/2019 2:24 PM CDT Meds to Bed Enrollment Entered On: 10/28/2019 10:33 EDT Performed On: 10/26/2019 14:24 EDT by Gerber Soares, DEPUTY CLERK-PHARMACY Meds to Bed Enrollment Patient Enrollment Decision: : No/do not enroll in meds to bed program Reason for Declining Meds to Bed Program: : Other: n/a Gerber Soares, DEPUTY CLERK-PHARMACY - 10/28/2019 10:32 EDT documented in this encounter Plan of Treatment Not on file documented as of this encounter Visit Diagnoses Not on filedocumented in this encounter Care Teams Industrial Hygiene Engineer Relationship Specialty Start Date End Date Jennifer Harp, CLOTH FINISHING RANGE TENDER [address] [place] [address] PCP - General Family Medicine 12/18/22 documented as of this encounter
--- OUTSIDE RECORDS SUMMARY | 2025-02-21 11:42 | XMS_ITS | Encounter Summary ---
Author Organization [employer] ([place], [place], [place], [place]) Address [address] [place] [address] Care Team Providers Care Forensic Manager Name Role Phone KatiuskaJennifer Kwesi BASSETT Primary Care Provider [phone] Encounter Details Date Type Department Care Team (Late st Contact Info) Description 07/09/2019 Transcribed Document [facility] [place] [facility] [place] [address] ProviderHarsh MD [address] [place] [address] Social History Tobacco Use Types Packs/Day Years Used Date Smoking Tobacco: Never Assessed Sex and Gender Information Value Date Recorded Sex Assigned at Male 11/21/2021 4:44 PM CDT Legal Sex Male 4:44 PM CDT Gender Identity Male 11/21/2021 4:44 PM CDT Sexual Orientation Not on file documented as of this encounter Miscellaneous Notes * Cerner Conversion Note - Historical ProviderMD - 07/09/2019 5:07 PM LATIN DANCER DATE OF SERVICE: 07/05/2019 POLYSOMNOGRAPHY SPLIT-NIGHT REPORT HISTORY OF PRESENT ILLNESS: Patient has a history of severe obstructive sleep apnea with an apnea-hypopnea index of 61. He awakens occasionally choking on BiPAP. His BiPAP levels have been switched several times recently and it is not clear what his original treatment levels are and what his appropriate treatment levels are. He is seen for a titration study to try to clarify needed treatment levels. MONTAGE: F3-M2, F4-1, C3-M2, O1-M2, O2-M1, LOC-M2, CHAZ-M2, submental EMG (3 leads), L tibialis anterior, R tibialis anterior, ECG, SpO2, nasal airflow (pressure), oral airflow (thermal), thoracic respiratory effort and abdominal respiratory effort. METHOD: Continuous recording of electroencephalographic, oculographic, submental EMG, limb movements, pulse oximetry, electrocardiogram using modified lead II torso placement, airflow and respiratory effort occurred during the patient's habitual sleep time. During the initial diagnostic portion of the study, airflow via nasal pressure and thermister was measured. Capnography was recorded. During the therapeutic portion of the study the airflow was recorded from the CPAP flow generator. Capnography was recorded if ordered. Each 30 second epoch was scored according to The AASM Manual for the Scoring of Sleep and Associated Events using the 1B 4% hypopnea rule. Please note that this study, because of some technical issues, is broken into a number of parts. Part 1, diagnostic portion: 1. Sleep architecture: Total recording time is 80 minutes. Total sleep time 60 minutes. Sleep efficiency 81%. Latency to sleep onset 5.5 minutes. 2. Sleep stages: Patient was primarily in stage I and 2 sleep. 3. Sleep continuity: Arousal index was significantly elevated at 57.7. 4. Respiratory data: Apnea plus hypopnea index was 82 with 32 obstructive apneas and 56 hypopneas. Patient did not have central apneas or any evidence of Benji-Marx respirations during the diagnostic portion of the study. 5. Oxygen saturation: Lowest O2 saturation was 84%, time in bed with O2 saturations less than 88%, 1.6 minutes. End-tidal CO2 average was 27 with highest end-tidal CO2 of 36. 6. Cardiac: Average heart rate was 56 with lowest heart rate of 52. 7. Limb movements: PLMs with arousal were not elevated. Part 2, therapeutic portion of the study: 1. Sleep architecture: Total recording time of this portion of the study is divided between 2 studies with a total recording time of 370 minutes. Total sleep time of 302 minutes. Sleep efficiency of 80%. 2. Sleep stages: Patient did reach approximately 20 minutes of REM sleep, but most of the study, he was in stage 2 sleep between both portions of the study is combined. 3. Sleep continuity: Arousal index was initially significantly elevated, but at the end of the titration on bilevel therapy, his arousal index came down to 16. 4. Positive airway pressure therapy results: Patient was titrated on CPAP and then switched to bilevel therapy. He appeared to be best treated at bilevel 14/10 with a minimum O2 saturation of 93% and an apnea-hypopnea index of 0. He was best treated when he was on his side. When he was in the supine position, he continued to have respiratory events. At times, the respiratory events resemble Benji-Marx respirations, but did not have a standard crescendo-decrescendo pattern that is usually seen in Benji-Marx respirations. 5. Cardiac: Average heart rate was 54 without arrhythmias. 6. Limb movements: PLMs with arousals were not increased. IMPRESSION: Severe obstructive sleep apnea with an apnea-hypopnea index of 84. Patient did develop some treatment emergent central apneas, but did appear to be well treated at 14/10 bilevel therapy without oxygen supplementation. RECOMMENDATION: Treatment with bilevel 14/10. We will get a download to monitor his response to therapy. /[id number] Pam Alix Hayes MD PW/AQ / PW / MODL /[id number] CC: Dr. Jamal Orozco Electronically signed by Bora [facility] Conversion Patient Service Specialist Cerner at 09/12/2022 10:51 AM CDT documented in this encounter Plan of Treatment Not on file documented as of this encounter Visit Diagnoses Not on filedocumented in this encounter Care Teams Forensic Manager Relationship Specialty Start Date End Date Jennifer Harp, CHILD CARE DEVELOPMENT SPECIALIST [address] [place] [address] PCP - General Family Medicine 12/18/22 documented as of this encounter
--- OUTSIDE RECORDS SUMMARY | 2025-02-21 11:42 | XMS_ITS | Encounter Summary ---
Author Organization [employer] ([place], [place], [place], [place]) Address [address] [place] [address] Care Team Providers Care Paint Spray Tender Name Role Phone KatiuskaJennifer Kwesi BASSETT Primary Care Provider [phone] Encounter Details Date Type Department Care Team (Late st Contact Info) Description 10/26/2019 Transcribed Document [facility] [place] [facility] [place] [address] ProviderHarsh MD [address] [place] [address] Social History Tobacco Use Types Packs/Day Years Used Date Smoking Tobacco: Never Assessed Sex and Gender Information Value Date Recorded Sex Assigned at Male 11/21/2021 4:44 PM CDT Legal Sex Male 4:44 PM CDT Gender Identity Male 11/21/2021 4:44 PM CDT Sexual Orientation Not on file documented as of this encounter Miscellaneous Notes * Cerner Conversion Note - Harsh ProviderMD - 10/26/2019 12:28 PM CDT Pain Assessment Entered On: 10/28/2019 13:51 EDT Performed On: 10/28/2019 13:13 EDT by Tara Steinberg, RN Intervention Information: acetaminophen-oxyCODONE Performed by Tara Steinberg, RN on 10/28/2019 12:13:00 EDT acetaminophen-oxyCODONE,2Tab Oral,Breakthrough Pain Pain Assessment Pain Assessment : Follow-up assessment Pain Scale Goal : 4 Pain Scale Used : 0-10 Scale Tara Steinberg RN - 10/28/2019 13:51 EDT Pain Scale Intensity : 4 Tara Steinberg RN - 10/28/2019 13:51 EDT Image 4 - Images currently included in the form version of this document have not been included in the text rendition version of the form. Electronically signed by Bora, [facility] Conversion Ibm Bpm Architect Cerner at 09/16/2022 3:32 PM CDT documented in this encounter Plan of Treatment Not on file documented as of this encounter Visit Diagnoses Not on filedocumented in this encounter Care Teams Paint Spray Tender Relationship Specialty Start Date End Date Jennifer Harp, COUNTER SALES PERSON [address] [place] [address] PCP - General Family Medicine 12/18/22 documented as of this encounter
--- OUTSIDE RECORDS SUMMARY | 2025-02-21 11:42 | XMS_ITS | Encounter Summary ---
Author Organization [employer] ([place], [place], [place], [place]) Address [address] [place] [address] Care Team Providers Care Family Welfare Social Work Professor Name Role Phone Jennifer Harp Kwesi BASSETT Primary Care Provider [phone] Encounter Details Date Type Department Care Team (Late st Contact Info) Description 10/28/2019 Transcribed Document [facility] Radiology [address] [place] [address] Nerissa Sharma MD [address] [place] [address] Social History Tobacco Use Types Packs/Day Years Used Date Smoking Tobacco: Never Assessed Sex and Gender Information Value Date Recorded Sex Assigned at Male 11/21/2021 4:44 PM CDT Legal Sex Male 4:44 PM CDT Gender Identity Male 11/21/2021 4:44 PM CDT Sexual Orientation Not on file documented as of this encounter Miscellaneous Notes * Cerner Conversion Note - Nerissa Sharma MD - 10/28/2019 12:59 PM EDT Patient: JAMIR VILLAFUERTE Age: 74 years Sex: Male : 1945 Associated Diagnoses: None Author: EL LOMBARDO PA-QUIN 10/28/2019 cc: medical management s/p posterior lumbar fusion per Dr. Locke S: states that he is doing better today. states that he had some nausea yesterday. Had some dizziness when up with therapy. Gave IVF bolus yesterday. Nsg said yesterday that pt had had about 1 L total out of his ALICIA drain. Most of that was within the first day of surgery and had slowed down yesterday. Not dizzy today. was up with therapy and did well. He is tired. apparently for the past couple of months prior to surgery pt had been rather sedentary. HPI: Patient is a 74 yo male admitted to [facility] per Dr. Locke for a posterior lumbar fusion. Preoperatively patient was found to have advanced spondylolisthesis of the lumbar spine and elected surgical intervention after failing conservative treatment. Patient is followed perioperatively while hospitalized for medical management. Initial visit seen on floor - Denies prior stroke or seizure. Denies [place], CHF or cardiac arrhythmia. Has had to [...] Tab, Oral, Daily Nasacort Allergy 24HR 1 [place], Nasal, Daily omeprazole 40 mg, Oral, Daily Plavix 75 mg, Oral, Daily Refresh Optive 1 Drop, Eye Right, Daily sertraline 25 mg, Oral, Daily Exam: Vitals Signs (last 24 hrs) Last Charted Minimum Maximum Temp 98.6 (OCT 27 05:30) 97.8 (OCT 26 23:00) 98.4 (OCT 26 15:38) Mon HR 65 (OCT 27 05:30) 62 (OCT 26 23:00) 66 (OCT 27 02:45) Resp Rate 16 (OCT 27 05:30) 16 (OCT 26 18:00) 16 (OCT 26 18:00) SBP 139 (OCT 27 05:30) 98 (OCT 26 15:38) 140 (OCT 26 23:00) DBP 60 (OCT 27 05:30) L 55 (OCT 26 15:38) 63 (OCT 27 02:45) MAP 78 (OCT 27 05:30) 65 (OCT 26 15:38) 78 (OCT 27 05:30) SpO2 96 (OCT 27 08:48) L 88 (OCT 26 15:38) 99 (OCT 26 18:00) GEN: Alert, awake, NAD - still seems a little sleepy today. resting in bed CV: S1S2, no murmur. No LE edema Resp: CTAB, NL Abd: Soft, NT, ND +BS Skin: no rashes on inspection and palpation. Ext: No LE edema. No joint edema, erythema. no calf tenderness Neuro: O x 3 Data: Blood Gases (Current Encounter/Past 24 Hours) No Blood Gas Results Found (Past 24 Hours) Electrolytes(BMP) Results (Current Encounter/Past 24 Hours) Sodium Level 136 mmol/L 10/28/2019 04:11 Potassium Level 4.5 mmol/L 10/28/2019 04:11 Chloride Level 104 mmol/L 10/28/2019 04:11 Carbon Dioxide Level 25 mmol/L 10/28/2019 04:11 Anion Gap 12 10/28/2019 04:11 Blood Urea Nitrogen 26 mg/dL [place] 10/28/2019 04:11 Glucose Level 128 mg/dL [place] 10/28/2019 04:11 Calcium Level 8.3 mg/dL LOW 10/28/2019 04:11 Creatinine Level 1.50 mg/dL [place] 10/28/2019 04:11 Cardiac Markers (Current Encounter/Past 24 Hours) No Cardiac Marker Results Found (Past 24 Hours) CBC Results (Current Encounter/Past 24 Hours) WBC 10.2 K/uL [place] 10/28/2019 03:53 Hct 34.9 % LOW 10/28/2019 03:53 Hgb 11.6 g/dL LOW 10/28/2019 03:53 Platelet Count 128 K/uL LOW 10/28/2019 03:53 CMP Results (Current Encounter/Past 24 Hours) Bun/Creatinine 17.3 10/28/2019 04:11 eGFR 55 mL/min/1.73m2 LOW 10/28/2019 04:11 eGFR NonAfrican 46 mL/min/1.73m2 LOW 10/28/2019 04:11 Creatinine Level 1.50 mg/dL [place] 10/28/2019 04:11 Sodium Level 136 mmol/L 10/28/2019 04:11 Potassium Level 4.5 mmol/L 10/28/2019 04:11 Chloride Level 104 mmol/L 10/28/2019 04:11 Carbon Dioxide Level 25 mmol/L 10/28/2019 04:11 Anion Gap 12 10/28/2019 04:11 Blood Urea Nitrogen 26 mg/dL NH 10/28/2019 04:11 Glucose Level 128 mg/dL NH 10/28/2019 04:11 Calcium Level 8.3 mg/dL LOW 10/28/2019 04:11 Coagulation Results (Current Encounter/Past 24 Hours) No Coagulation Results Found (Past 24 Hours) Creatinine Clearance (Current Encounter/Past 24 Hours) Creatinine Level 1.50 mg/dL [place] 10/28/2019 04:11 Bun/Creatinine 17.3 10/28/2019 04:11 Estimated Creatinine Clearance 40.39 mL/Min 10/28/2019 04:11 No Radiology Results Found Preop: Reviewed CBC, BMP, UA Creatinine 1.5 EKG with normal sinus rhythm, heart rate of 61 Impression: advanced spondylolisthesis Lspine; -Status post posterior lumbar fusion per Dr. Locke hypotension yesterday - due to decreased volume. Almost 1L from ALICIA drain. bolused with IVF and symptoms improved. tolerating BB today. 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 awaiting rehab placement. Pt gets fatigue easily with therapy and I think that he would benefit from inpt rehab. He is worried about going home and falling and not being able to help. bipap SubQ Heparin on hold until drain output slows Will hold ARB, reassess bp and renal function today Monitor HTN; add PRN's, hold parameters???for beta [...] on filedocumented in this encounter Care Teams Family Welfare Social Work Professor Relationship Specialty Start Date End Date Jennifer Harp, NIGHT TIME BABYSITTER [address] [place] [address] PCP - General Family Medicine 12/18/22 documented as of this encounter
--- OUTSIDE RECORDS SUMMARY | 2025-02-21 11:42 | XMS_ITS | Encounter Summary ---
Author Organization [employer] ([place], [place], [place], [place]) Address [address] [place] [address] Care Team Providers Care Latex Spooler Name Role Phone Jennifer Harp Kwesi BASSETT Primary Care Provider [phone] Encounter Details Date Type Department Care Team (Late st Contact Info) Description 10/27/2019 Transcribed Document [facility] Radiology 1 [place] [address] Nerissa Sharma MD [address] [place] [address] Social History Tobacco Use Types Packs/Day Years Used Date Smoking Tobacco: Never Assessed Sex and Gender Information Value Date Recorded Sex Assigned at Male 11/21/2021 4:44 PM CDT Legal Sex Male 4:44 PM CDT Gender Identity Male 11/21/2021 4:44 PM CDT Sexual Orientation Not on file documented as of this encounter Miscellaneous Notes * Cerner Conversion Note - Nerissa Sharma MD - 10/27/2019 10:27 AM EDT Patient: JAMIR VILLAFUERTE Age: 74 years Sex: Male : 1945 Associated Diagnoses: None Author: EL LOMBARDO PA-QUIN 10/27/2019 cc: medical management s/p posterior lumbar fusion per Dr. Locke S: Pt is doing ok. No f'/c/s. No n/v/d. (-) gas, (-) BM. No CP, SOA, palpitations. No cough or sputum. fc cath removed. has not urinated on his own yet. . +post op pain. Using incentive spirometer. +tired after therapy today. HPI: Patient is a 74 yo male admitted to [facility] per Dr. Locke for a posterior lumbar fusion. Preoperatively patient was found to have advanced spondylolisthesis of the lumbar spine and elected surgical intervention after failing conservative treatment. Patient is followed perioperatively while hospitalized for medical management. Initial visit seen on floor - Denies prior stroke or seizure. Denies [place], CHF or cardiac arrhythmia. Has had to [...] Tab, Oral, Daily Nasacort Allergy 24HR 1 [place], Nasal, Daily omeprazole 40 mg, Oral, Daily Plavix 75 mg, Oral, Daily Refresh Optive 1 Drop, Eye Right, Daily sertraline 25 mg, Oral, Daily Exam: Vitals Signs (last 24 hrs) Last Charted Minimum Maximum Temp 97.9 (OCT 26 05:47) 97.9 (OCT 26 05:47) 99.6 (OCT 25 22:38) Mon HR 63 (OCT 26 05:47) 56 (OCT 25 13:40) 69 (OCT 25 15:00) Resp Rate 16 (OCT 26 05:47) 16 (OCT 25 12:25) 20 (OCT 25 14:05) SBP 115 (OCT 26 05:47) 90 (OCT 25 12:30) 126 (OCT 25 18:15) DBP L 53 (OCT 26 05:47) L 51 (OCT 25 12:35) 73 (OCT 26 01:57) MAP 68 (OCT 26 05:47) 65 (OCT 25 12:35) 84 (OCT 25 14:10) SpO2 L 92 (OCT 26 07:50) L 92 (OCT 26 07:50) 98 (OCT 25 12:55) GEN: awake, but tired. NAD CV: S1S2, no murmur. No LE edema Resp: CTAB, NL Abd: Soft, NT, ND +BS Skin: no rashes on inspection and palpation. Ext: No LE edema. No joint edema, erythema. no calf tenderness Neuro: O x 3 Data: Blood Gases (Current Encounter/Past 24 Hours) No Blood Gas Results Found (Past 24 Hours) Electrolytes(BMP) Results (Current Encounter/Past 24 Hours) Sodium Level 138 mmol/L 10/27/2019 04:15 Potassium Level 4.5 mmol/L 10/27/2019 04:15 Chloride Level 107 mmol/L 10/27/2019 04:15 Carbon Dioxide Level 25 mmol/L 10/27/2019 04:15 Anion Gap 10 10/27/2019 04:15 Blood Urea Nitrogen 21 mg/dL 10/27/2019 04:15 Glucose Level 123 mg/dL [place] 10/27/2019 04:15 Calcium Level 8.2 mg/dL LOW 10/27/2019 04:15 Creatinine Level 1.30 mg/dL 10/27/2019 04:15 Cardiac Markers (Current Encounter/Past 24 Hours) No Cardiac Marker Results Found (Past 24 Hours) CBC Results (Current Encounter/Past 24 Hours) WBC 10.3 K/uL [place] 10/27/2019 03:58 Hct 35.7 % LOW 10/27/2019 03:58 Hgb 12.2 g/dL LOW 10/27/2019 03:58 Platelet Count 133 K/uL LOW 10/27/2019 03:58 CMP Results (Current Encounter/Past 24 Hours) Creatinine Level 1.30 mg/dL 10/27/2019 04:15 Bun/Creatinine 16.2 10/27/2019 04:15 eGFR >60 mL/min/1.73m2 10/27/2019 04:15 eGFR NonAfrican 54 mL/min/1.73m2 LOW 10/27/2019 04:15 Sodium Level 138 mmol/L 10/27/2019 04:15 Potassium Level 4.5 mmol/L 10/27/2019 04:15 Chloride Level 107 mmol/L 10/27/2019 04:15 Carbon Dioxide Level 25 mmol/L 10/27/2019 04:15 Anion Gap 10 10/27/2019 04:15 Blood Urea Nitrogen 21 mg/dL 10/27/2019 04:15 Glucose Level 123 mg/dL [place] 10/27/2019 04:15 Calcium Level 8.2 mg/dL LOW 10/27/2019 04:15 Coagulation Results (Current Encounter/Past 24 Hours) No Coagulation Results Found (Past 24 Hours) Creatinine Clearance (Current Encounter/Past 24 Hours) Creatinine Level 1.30 mg/dL 10/27/2019 04:15 Bun/Creatinine 16.2 10/27/2019 04:15 Estimated Creatinine Clearance 46.61 mL/Min 10/27/2019 04:15 Radiology Results (Last 48 hours) [id number] -- 10/26/2019 06:[address] in OR (10/26/2019 12:00) Result: CT SPINE LUMBAR IN THE ORINDICATION: Intraoperative exam. Back pain.TECHNIQUE: Thin section axial images were obtained through the lumbarspine with the patient in prone position. This was obtained in theoperating room to assist with surgical planning.COMPARISON: None.FINDINGS: There is a large posterior soft tissue defect. There arechanges from posterior lumbar fusion. Multilevel degenerative disease ispresent. Limited evaluation of the abdomen is unremarkable except for anapparent 2.3 cm left renal cyst.IMPRESSION: Intraoperative exam during lumbar spine surgery. Please seethe operative report for further details.Images reviewed, interpreted, and dictated by Dr. Julio Cesar Patel.Transcribed by Juan Carlos Garrison PA-C.I have personally viewed, interpreted and dictated the examination. Ihave read and agree with the above final transcribed report. Preop: Reviewed CBC, BMP, UA Creatinine 1.5 EKG with normal sinus rhythm, heart rate of 61 Impression: advanced spondylolisthesis Lspine; -Status post posterior lumbar fusion per Dr. 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
--- OUTSIDE RECORDS SUMMARY | 2025-02-21 11:42 | XMS_ITS | Encounter Summary ---
Author Organization [employer] ([place], [place], [place], [place]) Address [address] [place] [address] Care Team Providers Care Crab Meat Processor Name Role Phone HarpJennifer robles Kwesi BASSETT Primary Care Provider [phone] Encounter Details Date Type Department Care Team (Late st Contact Info) Description 10/28/[address] [facility] [place] [address] ProviderHarsh MD [address] [place] [address] Social History Tobacco Use Types Packs/Day Years Used Date Smoking Tobacco: Never Assessed Sex and Gender Information Value Date Recorded Sex Assigned at Male 11/21/2021 4:44 PM CDT Legal Sex Male 4:44 PM CDT Gender Identity Male 11/21/2021 4:44 PM CDT Sexual Orientation Not on file documented as of this encounter Miscellaneous Notes * Cerner Conversion Note - Harsh ProviderMD - 10/28/2019 5:00 PM CDT Chart Check - Review Order Profile Entered On: 10/28/2019 16:17 EDT Performed On: 10/28/2019 17:00 EDT by Tara Steinberg, RN Chart Check Powerplans Initiated/Discontinued as Appropriate : Yes All Active Orders Reviewed : Yes Tara Steinbegr, RN - 10/28/2019 16:17 EDT documented in this encounter Plan of Treatment Not on file documented as of this encounter Visit Diagnoses Not on filedocumented in this encounter Care Teams Crab Meat Processor Relationship Specialty Start Date End Date Jennifer Harp, MEXICAN FOOD MAKER [address] [place] [address] PCP - General Family Medicine 12/18/22 documented as of this encounter
--- OUTSIDE RECORDS SUMMARY | 2025-02-21 11:42 | XMS_ITS | Encounter Summary ---
Author Organization [employer] [facility] ([place], [place], [place], [place]) Address [address] [place] [address] Care Team Providers Care Engine Room Helper Name Role Phone KatiuskaJennifer Kwesi BASSETT Primary Care Provider [phone] Encounter Details Date Type Department Care Team (Late st Contact Info) Description 10/26/2019 Transcribed Document [facility] [place] [facility] [place] [address] ProviderHarsh MD [address] [place] [id number] Social History Tobacco Use Types Packs/Day Years Used Date Smoking Tobacco: Never Assessed Sex and Gender Information Value Date Recorded Sex Assigned at Male 11/21/2021 4:44 PM CDT Legal Sex Male 4:44 PM CDT Gender Identity Male 11/21/2021 4:44 PM CDT Sexual Orientation Not on file documented as of this encounter Miscellaneous Notes * Cerner Conversion Note - Harhs ProviderMD - 10/26/2019 12:26 PM CDT Pain Assessment Entered On: 10/30/2019 12:38 EDT Performed On: 10/30/2019 11:29 EDT by MICHELLE BARRIENTOS, RN Intervention Information: acetaminophen-oxyCODONE Performed by MICHELLE BARRIENTOS, BEVERLEY on 10/30/2019 10:29:00 EDT acetaminophen-oxyCODONE,1Tab Oral,Pain (Mild 1-3) Pain Assessment Pain Assessment : Follow-up assessment Pain Scale Goal : 4 Pain Scale Used : 0-10 Scale MICHELLE BARRIENTOS RN - 10/30/2019 12:37 EDT Pain Scale Intensity : 3 MICHELLE BARRIENTOS RN - 10/30/2019 12:37 EDT Image 4 - Images currently included in the form version of this document have not been included in the text rendition version of the form. documented in this encounter Plan of Treatment Not on file documented as of this encounter Visit Diagnoses Not on filedocumented in this encounter Care Teams Engine Room Helper Relationship Specialty Start Date End Date Jennifer Harp, SYSTEM SOFTWARE DEVELOPER [address] [place] [address] PCP - General Family Medicine 12/18/22 documented as of this encounter
--- OUTSIDE RECORDS SUMMARY | 2025-02-21 11:42 | XMS_ITS | Encounter Summary ---
Author Organization [employer] ([place], [place], [place], [place]) Address [address] [place] [address] Care Team Providers Care Dope Mixer Name Role Phone HarpJennifer robles Kwesi BASSETT Primary Care Provider [phone] Encounter Details Date Type Department Care Team (Late st Contact Info) Description 10/27/2019 Transcribed Document [facility] [place] [facility] [place] [address] ProviderHarsh MD [address] [place] [id number] Social History Tobacco Use Types Packs/Day Years Used Date Smoking Tobacco: Never Assessed Sex and Gender Information Value Date Recorded Sex Assigned at Male 11/21/2021 4:44 PM CDT Legal Sex Male 4:44 PM CDT Gender Identity Male 11/21/2021 4:44 PM CDT Sexual Orientation Not on file documented as of this encounter Miscellaneous Notes * Cerner Conversion Note - Historical ProviderMD - 10/27/2019 11:45 AM CDT Treatment Intervention, PT Entered On: 10/29/2019 16:09 EDT Performed On: 10/29/2019 15:19 EDT by LESVIA WADE, BRITTNEY General Information, PT Visit Type, PT : Treatment Note Patient Orders : Order Date Order Ordering 10/26/2019 12:26 Physical Therapy Eval and Treat Ordered By: TANIA BEE MD-[facility] 10/27/2019 11:45 PT Additional Treatment Ordered By: ZARINA VALENTE, PT Active Diagnoses : 10/28/2019 12:00 Spinal stenosis, lumbar region without neurogenic claudication 10/28/2019 12:00 Spondylolisthesis, lumbar region Therapy Diagnosis, PT : Impaired mobility. Admission Date : 10/26/2019 06:44 Assisted by, PT : vocational technical education teacher/aide Personal Devices : Personal Devices Glasses Assistive Devices : Assistive Devices No Devices Recorded Precautions in Place : Log roll precautions, Spinal Precautions, Other: HOB elevated to 30 deg LESVIA WADE, PT - 10/29/2019 16:02 EDT General Status Patient Received Status : Up in chair Treatment Start Time : 10/29/2019 14:52 EDT Patient Left Status : Up in chair, Family/Visitors at bedside, Communication board completed, All needs met and within reach RN/PCT Informed Comment : RN OK'd PTx. Treatment End Time : 10/29/2019 15:19 EDT Treatment Time : 27 Minute(s) LESVIA WADE, PT - 10/29/2019 16:02 EDT Intervention Summary O2 Pre-Intervention : RA LESVIA WADE, PT - 10/29/2019 16:02 EDT Therapeutic Exercises Therapeutic Exercise Comment, PT : Heel raises x20, ankle pumps x20, educated on MIP and LAQ LESVIA WADE, PT - 10/29/2019 16:02 EDT Functional Mobility Mobility Grid Sit to Stand : Rehab Minimal assistance (Comment: x2 [LESVIA WADE PT - 10/29/2019 16:02 EDT] ) Stand to Sit : Rehab Minimal assistance (Comment: x2 [LESVIA WADE PT - 10/29/2019 16:02 EDT] ) LESVIA WADE PT - 10/29/2019 16:02 EDT Sit to Stand Device : Belt, gait, Walker, front wheel Stand to Sit Device : Belt, gait, Walker, front wheel LESVIA WADE, PT - 10/29/2019 16:02 EDT Gait Training/Assessment, PT Weight Bearing Status : Full Gait Assistance Level : Assist, minimal (Comment: with chair follow [LESVIA WADE PT - 10/29/2019 16:02 EDT] ) Walking Distance : 250' Ambulatory Devices : Gait belt, Walker, front wheel Gait Training Comment : Pt demonstrating forward flexed posture that required several verbal cues to correct. Pt demonstrating very slow gait speed. LESVIA WADE, PT - 10/29/2019 16:02 EDT Cognitive Treatment, PT Follows Basic Command Findings, PT : Pt able to follow commands appropriately LESVIA WADE, PT - 10/29/2019 16:02 EDT Edu Topics Physical Therapy Education Grid Gait Training : Returns demonstration, Needs further teaching Therapeutic Exercises : Returns demonstration, Needs further teaching LESVIA WADE, PT - 10/29/2019 16:02 EDT Indication Assesessment, PT Physical Therapy Indicated : Yes LESVIA WADE, PT - 10/29/2019 16:02 EDT Plan of Care, PT PT Tx Plan/Goals Established w Patient : Yes LESVIA WADE, PT - 10/29/2019 16:02 EDT Short Term Goals Mobility/Bed Mobility STG PT Grid Goal #1 Activity : Supine to sit Assist : Supervision or set-up Date to Meet : 11/03/2019 EDT Goal Status : Progressing, continue LESVIA WADE PT - 10/29/2019 16:02 EDT Transfer STG Grid Goal #1 Destination : Chair, with arms Assist : Supervision or set-up Date to Meet : 11/03/2019 EDT Goal Status : Intial Goal LESVIA WADE PT - 10/29/2019 16:02 EDT Ambulation STG Grid Goal #1 Device : Walker, front wheel Distance : 250' Assist : Supervision or set-up Date to Meet : 11/03/2019 EDT Goal Status : Goal met Date Met : 10/28/2019 EDT LESVIA WADE PT - 10/29/2019 16:02 EDT Stairs STG Grid Goal #1 Device : Cane, single point Number of Steps : 8 Handrail(s) : One handrail Assist : Assist, minimal Date to Meet : 11/03/2019 EDT Goal Status : Progressing, continue LESVIA WADE PT - 10/29/2019 16:02 EDT Corporate Bond Trader Goals Mobility/Bed Mobility LTG PT Grid Goal #1 Activity : Supine to sit Assist : Independent, modified Date to Meet : 11/10/2019 EDT Goal Status : Progressing, continue LESVIA WADE PT - 10/29/2019 16:02 EDT Transfer LTG Grid Goal #1 Destination : Chair, with arms Assist : Independent, modified Equipment : Walker, front wheel Date to Meet : 11/10/2019 EDT Goal Status : Intial Goal LESVIA WADE PT - 10/29/2019 16:02 EDT Ambulation LTG Grid Goal #1 Device : Walker, front wheel Distance : 400' Assist : Independent, modified Date to Meet : 11/10/2019 EDT Goal Status : Progressing, continue LESVIA WADE PT - 10/29/2019 16:02 EDT Stairs LTG Grid Goal #1 Device : None Number of Steps : 8 Handrail(s) : One handrail Assist : Independent, modified Date to Meet : 11/10/2019 EDT Goal Status : Progressing, continue LESVIA WADE, PT - 10/29/2019 16:02 EDT Treatment Note Subjective Comment : Pt agreed to PTx. Pt reports pain is somewhat better this afternoon but is still having pain and tightness in his low back. Assessment : Pt doing better this afternoon than this morning but is not doing as well as he has done the previous two days. This is likely due to increased pain in his low back. He was able to ambulate 250' this afternoon but with a very slow marla and forward flexed posture. Bed mobility was not assessed this PM, but pt had been requiring ModA for supine to sit via log roll. Based on his current functional limitaitons and physical impairments, I recommend the pt continue with skilled PT once discharged. Plan for Treatment : Continue with PTx and POC. LESVIA WADE PT - 10/29/2019 16:02 EDT Pain Assessment Pain Scaled Used : 0-10 Pain scale Pain Score Pre-Intervention : 5 Location : Back, lower LESVIA WADE PT - 10/29/2019 16:02 EDT Image 1 - Images currently included in the form version of this document have not been included in the text rendition version of the form. Anticipated Discharge Needs, OT/PT Anticipated Discharge to : Unit, rehabilitation Anticipated Home Equipment : Walker Recommend Continued Therapy at Discharge : Yes Walker : Walker, front wheel LESVIA WADE PT - 10/29/2019 16:02 EDT [facility] PT Charges PT Therap. Exercise 15 min : 1 Gait Training Each 15 Min : 1 LESVIA WADE, PT - 10/29/2019 16:02 EDT Electronically signed by [facility] Conversion Research Worker Kitchen Cerner at 09/16/2022 3:31 PM CDT documented in this encounter Plan of Treatment Not on file documented as of this encounter Visit Diagnoses Not on filedocumented in this encounter Care Teams Dope Mixer Relationship Specialty Start Date End Date Jennifer Harp, BUSINESS APPLICATIONS DEVELOPER [address] [place] [address] PCP - General Family Medicine 12/18/22 documented as of this encounter
--- OUTSIDE RECORDS SUMMARY | 2025-02-21 11:42 | XMS_ITS | Encounter Summary ---
Author Organization [employer] ([place], [place], [place], [place]) Address [address] [place] [address] Care Team Providers Care Emergency Vehicle Operations Instructor Name Role Phone Jennifer Harp DANYELLE Primary Care Provider [phone] Encounter Details Date Type Department Care Team (Late st Contact Info) Description 10/27/[address] [facility] Neurology - [address] [id number] Tania Bee Jr., MD [address] [place] [address] Social History Tobacco Use Types Packs/Day Years Used Date Smoking Tobacco: Never Assessed Sex and Gender Information Value Date Recorded Sex Assigned at Male 11/21/2021 4:44 PM CDT Legal Sex Male 4:44 PM CDT Gender Identity Male 11/21/2021 4:44 PM CDT Sexual Orientation Not on file documented as of this encounter Miscellaneous Notes * Cerner Conversion Note - Tania Bee Jr., MD - 10/27/2019 5:33 PM EDT Patient: JAMIR VILLAFUERTE Age: 74 years Sex: Male : 1945 Associated Diagnoses: None Author: TANIA BEE MD-SNU looked well this afternoon 09/28 c/d/i fernando oputput slowing bp sl low a/p: dc fernando tomorrow? may need rehab p.t. pain control documented in this encounter Plan of Treatment Not on file documented as of this encounter Visit Diagnoses Not on filedocumented in this encounter Care Teams Emergency Vehicle Operations Instructor Relationship Specialty Start Date End Date Jennifer Harp, FASHION CONSULTANT [address] [place] [address] PCP - General Family Medicine 12/18/22 documented as of this encounter
--- OUTSIDE RECORDS SUMMARY | 2025-02-21 11:42 | XMS_ITS | Encounter Summary ---
Author Organization [employer] ([place], [place], [place], [place]) Address [address] [place] [address] Care Team Providers Care Licensed Reactor Operator Name Role Phone HarpJennifer robles Kwesi BASSETT Primary Care Provider [phone] Encounter Details Date Type Department Care Team (Late st Contact Info) Description 10/26/2019 Transcribed Document [facility] [place] [address] ProviderHarsh MD [address] [place] [address] Social History Tobacco Use Types Packs/Day [...] ProviderMD - 10/26/2019 12:26 PM CDT Evaluation, Occupational Therapy Entered On: 10/27/2019 11:57 EDT Performed On: 10/27/2019 11:50 EDT by MIGUEL JOHNSON OTR/Deisy General Information, OT Visit Type, OT : Initial evaluation Patient Orders : Order Date Order Ordering 10/26/2019 12:26 Occupational Therapy Evaluation and Treatme Ordered By: TANIA BEE MD-[facility] Active Diagnoses : No Qualifying Diagnoses Therapy Diagnosis, OT : Decreased indpendence with ADLs due to pain and weakness Onset of Problem, OT : 10/26/2019 EDT Admission Date : 10/26/2019 06:44 Co-treated by, OT : Physical Therapist, Other: PT student Personal Devices : Personal Devices Glasses Assistive Devices : Assistive Devices No Devices Recorded Precautions in Place : Log roll precautions, Other: HOB elevated to 30 deg General Information Comment, OT : Dx: Lumbar fusion; T10-T11 laminectomy, L3-S1 Laminectomy; WITH BRACE MIGUEL JOHNSON OTR/Deisy - 10/27/2019 11:50 EDT General Status Patient Received Status : Supine in bed Treatment Start Time : 10/27/2019 9:19 EDT Patient Left Status : Up in chair, All needs met and within reach RN/PCT Informed Comment : RN ok/d Treatment End Time : 10/27/2019 9:51 EDT Treatment Time : 32 Minute(s) MIUGEL JOHNSON OTR/L - 10/27/2019 11:50 EDT History and Environment, OT Living Situation, Therapy : Home Patient Lives With : Spouse Persons Assisting Patient at Home : Spouse Professional Skilled Services : None Persons Providing Information : Patient Home Equipment, Therapy : Cane, Shower Equipment, Wheelchair Home Setup : Multi-level home Bedroom Location [...] Right, going up Railing Outside : Yes MIGUEL JOHNSON OTR/L - 10/27/2019 11:50 EDT Prior LOF Bathing, OT : Independent Prior LOF Bed Mobility : Independent Prior LOF Upper Body Dressing, OT : Independent Prior LOF Lower Body Dressing, OT : Independent Prior LOF Toileting : Independent Prior LOF Transfer : Independent Prior LOF Grooming, OT : Independent Prior LOF for IADLs, OT : Independent MIGUEL JOHNSON OTR/Deisy - 10/27/2019 11:50 EDT Prior LOF Assist with ADL Comment : pt states that he began experiencing back pain and weakness ~ 6 weeks ago. Prior to back pain and weakness pt was independent with ADLs but has been having difficulty with ADLs for past 6 weeks MIGUEL JOHNSON OTR/Deisy 10/27/2019 11:50 EDT Upper Extremity Right UE Active ROM : WFL Left UE Active ROM : WFL MIGUEL JOHNSON OTR/L 10/27/2019 11:50 EDT Self Care/Home Management, OT Self Feeding Assist Level, OT : Independent, modified Bathing Assist Level, OT : Assist, moderate Upper Body Dressing Assist Level, OT : Supervision or set-up Lower Body Dressing Assist Level, OT : Assist, moderate Toileting Assist Level : Assist, minimal Toilet Transfer Assist Level : Assist, minimal MIGUEL JOHNSON OTR/Deisy 10/27/2019 11:50 EDT Functional Mobility Mobility Grid Supine to Sit : Rehab Minimal assistance Sit to Stand : Rehab Minimal assistance Bed to Chair : Rehab Minimal assistance Stand to Sit : Rehab Minimal assistance MIGUEL JOHNSON OTR/Deisy 10/27/2019 11:50 EDT Cognition Assessment, OT Orientation : Oriented x 4 MIGUEL JOHNSON OTR/Deisy 10/27/2019 11:50 EDT Indication Assessment, OT Occupational Therapy Indicated : Yes Problem List, OT : Impaired, bed mobility, Impaired, endurance tolerance, Impaired, strength, Impaired, transfers Potential Barriers, OT : None evident Rehabilitation Potential, OT : Good MIGUEL JOHNSON OTR/Deisy 10/27/2019 11:50 EDT Plan of Care, OT OT Tx Plan/Goals Established w Patient : Yes OT Frequency Rehab : Five days per week OT Duration Rehab : Fourteen days OT Treatments Planned : Activities of daily living, Functional mobility training, Therapeutic activities MIGUEL JOHNSON OTR/Deisy 10/27/2019 11:50 EDT Residential Goals, OT Bathing LTG Grid Goal #1 Activity : Bathing Assist : Independent, modified Date to Meet : 11/10/2019 EDT Goal Status : Initial goal MIGUEL JOHNSON OTR/L 10/27/2019 11:50 EDT Dressing, Lower Body LTG Grid Goal #1 Activity : Dressing, Lower Body Assist : Independent, modified Date to Meet : 11/10/2019 EDT Goal Status : Initial goal MIGUEL JOHNSON OTR/Deisy 10/27/2019 11:50 EDT Toileting LTG Grid Goal #1 Activity : Toileting Assist : Independent, modified Date to Meet : 11/10/2019 EDT Goal Status : Initial goal ALEX DHAVAL RIVERA/Deisy - 10/27/2019 11:50 EDT Toilet Transfer LTG Grid Goal #1 Activity : Toilet Transfer, Ambulatory Assist : Independent, modified Date to Meet : 11/10/2019 EDT Goal Status : Initial goal ALEX DHAVAL RIVERA/Deisy - 10/27/2019 11:50 EDT Treatment Note Subjective Comment : Pt was agreeable Patient's Response to Treatment : Pt tolerated eval well Additional Objective Information : Pt was found lying supine in bed. Pt was min A for supine to sit (via log rolling), sit to stand, ambulation via RWX, and stand to sit. Pt needed ongoing cueing during fx mobility for posture. Pt was provided with AE. Pt was left sitting up in chair with all needs met, and call light within in reach. Pt's back brace had yet to arrive in pt room Assessment : Pt would benefit from OT services during hospitalization Plan for Treatment : See goals and provided AE edu and practice ALEX DHAVAL RIVERA/Deisy - 10/27/2019 11:50 EDT Pain Assessment Pain Scaled Used : 0-10 Pain scale Pain Score Pre-Intervention : 3 MIGUEL JOHNSON OTR/Deisy - 10/27/2019 11:50 EDT Image 1 - Images currently included in the form version of this document have not been included in the text rendition version of the form. Anticipated Discharge Needs, OT/PT Anticipated Discharge to : Unit, rehabilitation MIGUEL JOHNSON OTR/Deisy - 10/27/2019 11:50 EDT [facility] OT Charges OT Eval Moderate Complexity : 1 MIGUEL JOHNSON OTR/Deisy - 10/27/2019 11:50 EDT documented in this encounter Plan of Treatment Not on file documented as of this encounter Visit Diagnoses Not on filedocumented in this encounter Care Teams Licensed Reactor Operator Relationship Specialty Start Date End Date Jennifer Harp, RESEARCH PHLEBOTOMIST [address] [place] [address] PCP - General Family Medicine 12/18/22 documented as of this encounter
--- OUTSIDE RECORDS SUMMARY | 2025-02-21 11:42 | XMS_ITS | Clinical Summary ---
Author Organization [employer] ([place], [place], [place], [place]) Address [address] [place] [address] Care Team Providers Care Kids Activities Coach Name Role Phone Katiuska Jennifer Orosco APRN Primary Care Provider [phone] Allergies Active Allergy Reactions Criticality Noted Date [...] mg daily GERD (gastroesophageal reflux disease) 9 Family History Medical History Relation Name Comments Anesthesia problems Mother fol lowing hip surgery Relation Name Status Comments Father Mother Social History Tobacco Use Types Packs/Day Years [...] Date Gopal rded Speak language other than Ivorian at home Not on file 06/07/2023 Want [...] 06/02/2024 1:42 PM EST Plan of Treatment Health Maintenance Due Date Last Done Comments Depression Screening (12+) 1957 Hepatitis C Screening 10/22/1963 DTAP/TDAP/TD VACCINES (2 - T d or Tdap) 11/28/2016 11/28/2006 Shingles Vaccine (Zoster) (2 of 2) 12/20/20172017 Respiratory Syncytial Virus (RSV) Adult or (1 - 1-dose 75+ series) 2020 Medicare Initial AWV G0438 05/28/2023 Falls Risk Screening 05/27/2024 COVID-19 VACCINE (4 - 2024-2 6 season) 2025 04/28/2021, 07/28/2020, 06/30/2020 Influenza Vaccine (#1) 2025 3, 03/20/2022, 05/04/2019, Additional history exists Tobacco Cessation Counseling and Screening (12+) 06/08/2025 06/08/2024 Pneumococcal 50+ years Completed 04/26/2016, 2013 Medical Devices Implanted Type Area Machine Packaging Technician Device Identifier Shelf Expiration Date Model / Serial / Lot Bone Vivigen Formable Bl-1600-001 - [id number] Implanted:Qty : 1 on 12/26/2022 by Jamal Locke Jr., MD at [facility] IMPLANTS N/A: Spine Cervical LIFENET:LIFENET TRANSPLANT SRV 11/13/2023 BL-1600-0 01 / [id number] / Cage Eit Cif H 7mm [id number] - [id number] Implanted:Qty : 1 on 12/26/2022 by Jamal Locke Jr., MD at [facility] IMPLANTS N/A: Spine Cervical J &J:DEPUY:DEPUY SPINE 11/23/2025 [id number] / / [id number] Pin Compr [place] 14mm 014 - [id number] Implanted:Qty : 2 on 12/26/2022 by Jamal Locke Jr., MD at [facility] IMPLANTS N/A: Spine Cervical J &J:DEPUY:DEPUY SPINE 2748-07-0 14 / 0 14 / Plt Ant Skyln Hybrd Lvl1 16mm - [id number] Implanted:Qty : 1 on 12/26/2022 by Jamal Locke Jr., MD at [facility] IMPLANTS N/A: Spine Cervical J &J:DEPUY:DEPUY SPINE 0 16 / 16 / Scr Skyln Vari Sd 16mm - [id number] Implanted:Qty : 4 on 12/26/2022 by Jamal Locke Jr., MD at [facility] IMPLANTS N/A: Spine Cervical J &J:DEPUY:DEPUY SPINE 50-0 16 / 0 16 / Scr Eliseo Viper 5.5 Ti [id number] 099 - [id number] Implanted:Qty : 1 on 06/08/2024 by Jamal Locke Jr., MD at [facility] IMPLANTS N/A: Back J &J:DEPUY:DEPUY SPINE 99 / 1796-10-0 99 / Scr Eliseo Viper 5.5 Ti [id number] 1796-10-080 - [id number] Implanted:Qty : 1 on 06/08/2024 by Jamal Locke Jr., MD at [facility] IMPLANTS N/A: Back J &J:DEPUY:DEPUY ORTHOPAEDIC 06-0 80 / 1796-10-0 80 / Mis Natasha Ply Scrw Set Ti 000 - [id number] Implanted:Qty : 10 on 06/08/2024 by Jamal Locke Jr., MD at [facility] IMPLANTS N/A: Back J &J:DEPUY:DEPUY SPINE -0 00 / 0 00 / Be Spinal 135x5.55mm 1796-71-135 - [id number] Implanted:Qty : 2 on 06/08/2024 by Jamal Locke Jr., MD at [facility] IMPLANTS N/A: Back J &J:DEPUY:DEPUY SPINE -1 35 / 179-1 35 / Cage T/Plif 10mm Eit 8d 15/02 [id number] - [id number] Implanted:Qty : 1 on 06/08/2024 by Jamal Locke Jr., MD at [facility] IMPLANTS N/A: Spine Lumbar J &J:DEPUY:DEPUY SPINE 02/23/2034 [id number] / / [id number] Bone Vivigen Formable Cell [facility] Bl-1600-002 - [id number] Implanted:Qty : 1 on 06/08/2024 by Jamal Locke Jr., MD at [facility] IMPLANTS N/A: Spine Lumbar LIFENET:LIFENET TRANSPLANT SRV 06/03/2025 BL-1600-0 02 / [id number] / Scr Spne Yuniel Fix 7x55mm - [id number] Implanted:Qty : 2 on 06/08/2024 by Jamal Locke Jr., MD at [facility] IMPLANTS N/A: Back J &J:DEPUY:DEPUY SPINE 55 / 55 / Scr Spne Yuniel Fix 7x45mm 5 - [id number] Implanted:Qty : 1 on 06/08/2024 by Jamal Locke Jr., MD at [facility] IMPLANTS N/A: Back J &J:DEPUY:DEPUY SPINE 45 / 45 / Insurance [id number] (Home) [address] [place] [id number] [facility] MEDICARE HMO Advance Directives For more information, please contact: [phone] * Full Code (Latest Code Status on File) Date Activated Date Inactivated Comments 12/26/2022 9:35 AM 12/27/2022 3:09 PM Healthcare Agents on File Name Relationship Healthcare Agent [facility] p Communication Mago Villafuerte Spouse Healthcare Decision-Maker Care Teams Kids Activities Coach Relationship Specialty Start Date End Date Jennifer Harp, RESIDENTIAL FINISH CARPENTER [address] [place] [address] PCP - General Family Medicine 12/18/22
--- OUTSIDE RECORDS SUMMARY | 2025-02-21 11:42 | XMS_ITS | Encounter Summary ---
Author Organization [employer] ([place], [place], [place], [place]) Address [address] [facility] [facility] [address] Care Team Providers Care Meter Tester Name Role Phone KatiuskaJennifer Kwesi BASSETT Primary Care Provider [phone] Encounter Details Date Type Department Care Team (Late st Contact Info) Description 10/26/2019 Transcribed Document [facility] [place] [facility] [place] [address] ProviderHarsh MD [address] [place] [address] Social History Tobacco Use Types Packs/Day Years Used Date Smoking Tobacco: Never Assessed Sex and Gender Information Value Date Recorded Sex Assigned at Male 11/21/2021 4:44 PM CDT Legal Sex Male 4:44 PM CDT Gender Identity Male 11/21/2021 4:44 PM CDT Sexual Orientation Not on file documented as of this encounter Miscellaneous Notes * Cerner Conversion Note - Historical ProviderMD - 10/26/2019 6:43 AM CDT Admission History, Adult Entered On: 10/26/2019 14:43 EDT Performed On: 10/26/2019 14:40 EDT by Susan Steevns RN Advance Directive Patient has Advance Directive *Q : No, patient refuses Advance Directive information Susan Stevens RN - 10/26/2019 14:39 EDT Anesthesia/Transfusion History Family History of Anesthesia Reaction : No prior transfusion(s) Blood Transfusion Acceptable to Patient : Yes Transfusion History : Prior anesthesia without reaction Family History of Anesthesia Reaction : None, Other: mother age 91 didnt wake up after hip pinning... 3 days later 2014 Susan Stevens RN - 10/26/2019 14:39 EDT Functional Assessment Living Situation : Home Patient Lives With : Spouse Mobility Assistance Prior to Admission : Partial assistance FERNÁNDEZ Hx Falls Immediate/Within 3 Months : Yes Current Home Treatments : BiPAP Home Equipment : Susan Lopez RN - 10/26/2019 14:39 EDT General Info Preferred Name : Jamir Support Person/Pt Rep Name : Joe Support Person/Pt Rep Contact Information : [phone] or [phone] Want Family/Rep/Phys Notified of Admit : No Emergency Contact #1 : joe Emergency Contact #1 Emergency Contact #1 Relationship : spouse Emergency Contact #2 : none Emergency Contact #2 Phone Number : none Emergency Contact #2 Relationship : none Information Obtained From : Patient Primary Language : Albanian Preferred Communication Mode : Verbal Communication Barrier : None Susan Stevens RN - 10/26/2019 14:39 EDT Fall Risk Scales ABCs Fall Injury Risk Identification : Bones, Surgery ABC Fall Injury Risk : Moderate to high injury risk FERNÁNDEZ Hx Falls Immediate/Within 3 Months : Yes Fernández Secondary Diagnosis : Yes FERNÁNDEZ Use of Ambulatory Aid : Crutches/Cane/Walker FERNÁNDEZ IV Therapy or IV Access : Yes Fernández Gait/Transferring : Weak Fernández Mental Status : Oriented to own ability Fernández Fall Risk Score : 85 FERNÁNDEZ Fall Scale Risk Level : 46 or > High Risk [place] Fall Interventions : Adequate lighting, Assistive devices within reach, Bed in low position, Call device within reach, Fall prevention handout/education per facility policy, Hourly comfort/safety rounds, Non-slip footwear, Personal items within reach, Reinforced to call for assistance before getting out of bed, Room free of clutter/spills, Upper side-rails up, Wheels locked, Wires/Cords secured Barriers to Learning : None evident Susan Stevens RN - 10/26/2019 14:39 EDT Health Histories Smoking Status : Never (less than 100 in lifetime; none in last 30 days) Smokeless Tobacco Status : Never Susan Stevens RN - 10/26/2019 14:39 EDT Social History (As Of: 10/26/2019 14:43:47 EDT) Tobacco: Smoking Status Never smoker. (Last Updated: 07/15/2013 16:51:04 EST by YARIEL REAL, BEVERLEY) Alcohol: Use in Last 12 Months: No. (Last Updated: 07/15/2013 16:51:04 EST by YARIEL REAL, BEVERLEY) Substance Abuse: Drug Use Hx: No. (Last Updated: 07/15/2013 16:51:04 EST by YARIEL REAL, BEVERLEY) Nutrition/Health: Caffeine intake amount: 2 cups coffee/1 soda daily. (Last Updated: 07/15/2013 16:51:04 EST by YARIEL REAL RN) Home/Environment: Injuries/Abuse/Neglect in household: No. Feels unsafe at home: No. (Last Updated: 07/15/2013 16:51:04 EST by YARIEL REAL RN) Lives with Spouse. Home equipment: CPAP/BiPAP, Glucose monitoring, Walker/Cane. (Last Updated: 10/22/2019 14:21:24 EDT by CHUCK KELLY RN) Height and Weight, Clinical Dosing Height Source : Measured Height Entry Format : [place] Height, Feet : 5 ft(Converted to: 152 cm, 60 Inch) Height, Inches : 7 Inch(Converted to: 0 ft 7 Inch, 17.78 cm) Clinical Height : 170.18 cm Weight Source : Standing scale Weight Entry Format : [place] Clinical Dosing Weight : 87.73 kg Weight, Pounds : 193 lb Body Surface Area (BSA) : 1.99 m2 Body Mass Index : 30.3 kg/m2 (HI) [place] Body Weight : 65 kg Susan Stevens RN - 10/26/2019 14:39 EDT Infectious Disease History Has the patient ever been tested for COVID-19? : Yes, Patient stated results pending COVID19 Screening : No Experiencing Infectious Disease Symptoms : No symptoms Physical contact outside [place] in the last 30 days : No Infectious Disease Symptoms Score : 0 Infectious Disease History : Chicken pox/Shingles, Influenza, Measles, Mumps Tuberculosis Symptoms : None Susan Stevens RN - 10/26/2019 14:39 EDT Tetanus Immunization Status Previous Tetanus Immunizations : No qualifying data available. Susan Stevens RN - 10/26/2019 14:39 EDT Influenza Vaccine Asmt, Adult Previous Vaccines from Immunization Schedule : No qualifying data available. Influenza Immunization, Current Season : Yes Susan Stevens RN - 10/26/2019 14:39 EDT Pneumococcal Vaccine Previous Vaccines from Immunization Schedule : No qualifying data available. Pneumonia Immunization Received : No Pneumococcal Risk Assessment < Age 65 : N/A- Patient 65 years of age or older Pneumococcal Vaccine Contraindications : No contraindications to pneumococcal vaccine Transplant Workup/Recent Transplant : No Order for Pneumococcal Vaccine : Order for pneumococcal vaccine sent to pharmacy Susan Stevens RN - 10/26/2019 14:39 EDT Nutrition History Feeding Ability : Independent Adaptive Feeding Equipment : Regular Eating Poorly Due to Decreased Appetite : No Unplanned Weight Loss in Past 3-6 Months : No Malnutrition Screening Tool Total(mal) : 0 Malnutrition Screening Tool Risk Level : Patient not at risk Susan Stevens RN - 10/26/2019 14:39 EDT [place] Suicide Severity Rating Scale (C-SSRS) CSSRS Past Month Wish to be : No CSSRS Past Month Suicidal Thoughts : No CSSRS Lifetime Suicide Behavior : No Suicide Severity Rating Score : 0 Suicide Severity Rating : No Additional Care Required at this time Susan Stevens RN - 10/26/2019 14:39 EDT Psychosocial History Do You Have a History of the Following? : Anxiety Currently in Unsafe Situation : No Susan Stevens RN - 10/26/2019 14:39 EDT Sleep Apnea Risk Assmt BiPAP/CPAP Ordered for Home Use : Yes Hx of Obstructive Sleep Apnea Diagnosis : Yes BiPAP/CPAP Used at Home : Yes Age over 50 Years Old : Yes Gender Male : Yes Susan Stevens RN - 10/26/2019 14:39 EDT Valuables and Belongings Valuables and Belongings : Clothing, Personal devices, Personal items, Respiratory devices, No comfort items, No jewelry, No assistive devices, No medications Clothing : Common streetwear Clothing Disposition : With patient Personal Device Disposition : With patient Personal Devices : Glasses Personal Items : Cell phone Personal Items Disposition : With patient Respiratory Devices : BiPAP, Other: tube and mask Respiratory Device Disposition : With patient Susan Stevens, RN - 10/26/2019 14:39 EDT Electronically signed by [facility], [facility] Conversion Cosmetics Machine Operator Cerner at 09/12/2022 10:52 AM CDT documented in this encounter Plan of Treatment Not on file documented as of this encounter Visit Diagnoses Not on filedocumented in this encounter Care Teams Meter Tester Relationship Specialty Start Date End Date Jennifer Harp, RN ER [address] [place] [address] PCP - General Family Medicine 12/18/22 documented as of this encounter
--- OUTSIDE RECORDS SUMMARY | 2025-02-21 11:42 | XMS_ITS | Encounter Summary ---
Author Organization [employer] ([place], [place], [place], [place]) Address [address] [place] [address] Care Team Providers Care Commercial Credit Lead Name Role Phone Jennifer Harp DANYELLE Primary Care Provider [phone] Encounter Details Date Type Department Care Team (Late st Contact Info) Description 10/28/2019 Transcribed Document [facility] Neurology - [address] [address] Jamal Locke Jr., MD [address] [place] [address] Social History Tobacco Use Types Packs/Day Years Used Date Smoking Tobacco: Never Assessed Sex and Gender Information Value Date Recorded Sex Assigned at Male 11/21/2021 4:44 PM CDT Legal Sex Male 4:44 PM CDT Gender Identity Male 11/21/2021 4:44 PM CDT Sexual Orientation Not on file documented as of this encounter Miscellaneous Notes * Cerner Conversion Note - Jamal Locke Jr., MD - 10/28/2019 11:05 AM EDT Patient: JAMIR VILLAFUERTE Age: 74 years Sex: Male : 1945 Associated Diagnoses: None Author: EVE JACKSON PA Subjective Improvement in leg pain since surgery Objective VS/Measurements Vitals Signs (last 24 hrs) Last Charted Minimum Maximum Temp 98.6 (OCT 27 05:30) 97.8 (OCT 26 23:00) 98 (OCT 26 10:42) Mon HR 65 (OCT 27 05:30) 62 (OCT 26 10:42) 66 (OCT 27 02:45) Resp Rate 16 [...] (OCT 26 15:38) 99 (OCT 26 18:00) AAOx3. Moving lower extremities well. Incisions clean, dry, and intact. JPs with 90cc and 15cc shift stacker, serosanguineous. Ambnulated with PT 100' x2 yesterday. Impression and Plan POD 2 L3-S1 fusion and T10-11 laminectomy. Continue PT/OT. Will d/c drains this afternoon. Probable discharge to rehab tomorrow. documented in this encounter Plan of Treatment Not on file documented as of this encounter Visit Diagnoses Not on filedocumented in this encounter Care Teams Commercial Credit Lead Relationship Specialty Start Date End Date Jennifer Harp, DIE DRAWING CHECKER [address] [place], [place] [address] PCP - General Family Medicine 12/18/22 documented as of this encounter
--- OUTSIDE RECORDS SUMMARY | 2025-02-21 11:42 | XMS_ITS | Encounter Summary ---
Author Organization [employer] ([place], [place], [place], [place]) Address [address] [place] [address] Care Team Providers Care Turntable Operator Name Role Phone HarpJennifer robles Kwesi BASSETT Primary Care Provider [phone] Encounter Details Date Type Department Care Team (Late st Contact Info) Description 10/28/2019 Transcribed Document [facility] [place] [facility] [place] [address] ProviderHarsh MD [address] [place] [address] Social History Tobacco Use Types Packs/Day Years Used Date Smoking Tobacco: Never Assessed Sex and Gender Information Value Date Recorded Sex Assigned at Male 11/21/2021 4:44 PM CDT Legal Sex Male 4:44 PM CDT Gender Identity Male 11/21/2021 4:44 PM CDT Sexual Orientation Not on file documented as of this encounter Miscellaneous Notes * Cerner Conversion Note - Harsh ProviderMD - 10/28/2019 10:48 AM CDT On Going Discharge Planning Entered On: 10/28/2019 10:49 EDT Performed On: 10/28/2019 10:48 EDT by TY CAMPBELL RN-Breakfast Bar AttendantHotel Director Progress Note Discharge Arrangements : Patient Post-Acute Information Patient Name: JAMIR VILLAFUERTE Gender: Male : [birth year] Age: 74 Years No Post-Acute Placement(s) Listed No Post-Acute Service(s) Listed No [place] Referral(s) Listed Discharge Options Discussed with Patient : Acute rehabilitation, Short term rehabilitation Barriers to Discharge Identified : Clinical Condition of Patient Barriers to Discharge Unresolved : Clinical Condition of Patient Certification for Post-Acute Care Initiated : 10/27/2019 EDT Does the Patient have a Floor to SNF Benefit? : No Is the Patient Meeting Medical Necessity : Yes TY CAMPBELL RN-Breakfast Bar Attendant - 10/28/2019 10:48 EDT Narrative Progress Note Narrative Progress Note : Precert still pending for [facility]. Per Dr. Locke-pt will stay tonite as his drain output is still high. CM will continue to follow. TY CAMPBELL RN-Breakfast Bar Attendant - 10/28/2019 10:48 EDT documented in this encounter Plan of Treatment Not on file documented as of this encounter Visit Diagnoses Not on filedocumented in this encounter Care Teams Turntable Operator Relationship Specialty Start Date End Date Jennifer Harp, APPLICATION SERVICES MANAGER [address] [place] [address] PCP - General Family Medicine 12/18/22 documented as of this encounter
--- OUTSIDE RECORDS SUMMARY | 2025-02-21 11:42 | XMS_ITS | Encounter Summary ---
Author Organization [employer] ([place], [place], [place], [place]) Address [address] [place] [address] Care Team Providers Care Jet Dyeing Machine Tender Name Role Phone HaprJennifer robles Kwesi BASSETT Primary Care Provider [phone] Encounter Details Date Type Department Care Team (Late st Contact Info) Description 10/26/2019 Transcribed Document [facility] [place] [facility] [place] [address] ProviderHarsh MD [address] [place] [address] Social History Tobacco Use Types Packs/Day Years Used Date Smoking Tobacco: Never Assessed Sex and Gender Information Value Date Recorded Sex Assigned at Male 11/21/2021 4:44 PM CDT Legal Sex Male 4:44 PM CDT Gender Identity Male 11/21/2021 4:44 PM CDT Sexual Orientation Not on file documented as of this encounter Miscellaneous Notes * Cerner Conversion Note - Historical ProviderMD - 10/26/2019 5:00 PM CDT Chart Check - Review Order Profile Entered On: 10/26/2019 18:53 EDT Performed On: 10/26/2019 17:00 EDT by Susan Stevens RN Chart Check Powerplans Initiated/Discontinued as Appropriate : Yes All Active Orders Reviewed : Yes Susan Stevens RN - 10/26/2019 18:53 EDT Electronically signed by [facility] Conversion Negative Turner Apprentice Cerner at 09/12/2022 11:02 AM CDT documented in this encounter Plan of Treatment Not on file documented as of this encounter Visit Diagnoses Not on filedocumented in this encounter Care Teams Jet Dyeing Machine Tender Relationship Specialty Start Date End Date Jennifer Harp, CUPOLA OPERATOR [address] [place] [address] PCP - General Family Medicine 12/18/22 documented as of this encounter
--- OUTSIDE RECORDS SUMMARY | 2025-02-21 11:42 | XMS_ITS | Encounter Summary ---
Author Organization [employer] ([place], [place], [place], [place]) Address [address] [place] [address] Care Team Providers Care Tobacco Drier Operator Name Role Phone Jennifer Harp DANYELLE Primary Care Provider [phone] Encounter Details Date Type Department Care Team (Late st Contact Info) Description 10/27/2019 Transcribed Document [facility] Neurology - [address] [address] Jamal Locke Jr., MD [address] [place] [address] Social History Tobacco Use Types Packs/Day Years Used Date Smoking Tobacco: Never Assessed Sex and Gender Information Value Date Recorded Sex Assigned at Male 11/21/2021 4:44 PM CDT Legal Sex Male 4:44 PM CDT Gender Identity Male 11/21/2021 4:44 PM CDT Sexual Orientation Not on file documented as of this encounter Miscellaneous Notes * Cerner Conversion Note - Jamal Locke Jr., MD - 10/27/2019 8:50 AM EDT Patient: JAMIR VILLAFUERTE Age: 74 years Sex: Male : 1945 Associated Diagnoses: None Author: EVE JACKSON PA Subjective Leg pain improved since surgery Objective VS/Measurements Vitals Signs (last [...] 25 12:35) 84 (OCT 25 14:10) SpO2 97 (OCT 26 05:47) L 93 (OCT 25 13:40) 98 (OCT 25 12:55) AAOx3. Incisions clean, dry, and intact. JPs with 800cc and 75cc since surgery. Moving LEs well. Impression and Plan POD 1 L3-S1 fusion and T10-11 laminectomy. Continue drains today. D/C raine. PT/OT. May benefit from inpatient rehab. Will hold subq heparin until drain output slows. documented in this encounter Plan of Treatment Not on file documented as of this encounter Visit Diagnoses Not on filedocumented in this encounter Care Teams Tobacco Drier Operator Relationship Specialty Start Date End Date Jennifer Harp, OIL DIPPER [address] [place] [address] PCP - General Family Medicine 12/18/22 documented as of this encounter
--- OUTSIDE RECORDS SUMMARY | 2025-02-21 11:42 | XMS_ITS | Encounter Summary ---
Author Organization [employer] ([place], [place], [place], [place]) Address [address] [place] [address] Care Team Providers Care City Designer Name Role Phone Jennifer Harp DANYELLE Primary Care Provider [phone] Encounter Details Date Type Department Care Team (Late st Contact Info) Description 10/26/2019 Transcribed Document [facility] [place] [facility] [place] [address] ProviderHarsh MD [address] [place] [id number] Social History Tobacco Use Types Packs/Day Years Used Date Smoking Tobacco: Never Assessed Sex and Gender Information Value Date Recorded Sex Assigned at Male 11/21/2021 4:44 PM CDT Legal Sex Male 4:44 PM CDT Gender Identity Male 11/21/2021 4:44 PM CDT Sexual Orientation Not on file documented as of this encounter Miscellaneous Notes * Cerner Conversion Note - Historical ProviderMD - 10/26/2019 8:57 AM CDT [facility] Main OR IntraOp Summary Primary Physician: TANIA BEE MD-SNU Finalized Date/Time: 10/27/19 10:14:11 Pt. Name: VILLAFUERTE MICHELLE Coleman /Sex: 1945 Male Med Rec #: [id number] Physician: TANIA BEE MD-SNU Financial #: [id number] Pt. Type: I Room/Bed: [facility] Admit/Disch: 10/26/19 06:44:00 - Institution: [facility] IntraOp Case Attendance Entry 1 Entry 2 Entry 3 Case Attendee TANIA BEE MD-SNU WASSON, SANDRA D, Brown Torres, RN Role Performed Surgeon/Proceduralist, Poultice Machine Operator, Second Poultice Machine Operator, First First Time In 10/26/19 08:20:00 10/26/19 08:20:00 10/26/19 08:20:00 Time Out 10/26/19 12:24:00 10/26/19 12:24:00 10/26/19 12:24:00 Procedure Lumbar Fusion Posterior Lumbar Fusion Posterior Lumbar Fusion Posterior 3 Level, Thoracic 3 Level, Thoracic 3 Level, Thoracic Laminectomy Laminectomy Laminectomy Other Attendee Superficial Wound Closed By: Last Modified By: MARY ANNE HASTINGS RN WASSON, SANDRA D, RN MARY ANNE HASTINGS RN 10/26/19 12:24:10 10/26/19 12:24:11 10/26/19 12:24:11 Entry 4 Entry 5 Entry 6 Case Attendee JAMEEL REGALADO ST SIEGRIST, MEGHAN, PA COMBEST, ASHLEY P, BOOKY Role Performed Scrub, First Physician undertaker assistant BOOKY/Nurse Graphic Production Artist Time In 10/26/19 08:20:00 10/26/19 08:20:00 10/26/19 08:20:00 Time Out 10/26/19 12:24:00 10/26/19 12:24:00 10/26/19 12:24:00 Procedure Lumbar Fusion Posterior Lumbar Fusion Posterior Lumbar Fusion Posterior 3 Level, Thoracic 3 Level, Thoracic 3 Level, Thoracic Laminectomy Laminectomy Laminectomy Other Attendee Superficial Wound Closed By: Last Modified By: MARY ANNE HASTINGS RN WASSON, SANDRA D, MARY ANNE HALLMAN RN 10/26/19 12:24:10 10/26/19 12:24:11 10/26/19 12:24:11 Entry 7 Entry 8 Entry 9 Case Attendee ALMA ROBERTO MD-Padmini Ames, OTHER, ATTENDEE #1 Stock Shaper Role Performed Anesthesiologist of Railroad Car Cleaning Supervisor Vendor Record Time In 10/26/19 08:20:00 10/26/19 08:20:00 10/26/19 08:20:00 Time Out 10/26/19 12:24:00 10/26/19 12:24:00 10/26/19 12:24:00 Procedure Lumbar Fusion Posterior Lumbar Fusion Posterior Lumbar Fusion Posterior 3 Level, Thoracic 3 Level, Thoracic 3 Level, Thoracic Laminectomy Laminectomy Laminectomy Other Attendee ZOLTAN OLSON Superficial Wound Closed By: Last Modified By: MARY ANNE HASTINGS, RN MARY ANNE HASTINGS, RN MARY ANNE HASTINGS, RN 10/26/19 12:24:11 10/26/19 12:24:11 10/26/19 12:24:11 Entry 10 Entry 11 Case Attendee DEON MARTINO MD-ANS BRUMMETT, JAMES A. Role Performed Anesthesiologist Scrub, Second Time In 10/26/19 09:49:00 10/26/19 11:21:00 Time Out 10/26/19 10:05:00 10/26/19 12:24:00 Procedure Lumbar Fusion Posterior Lumbar Fusion Posterior 3 Level, Thoracic 3 Level, Thoracic Laminectomy Laminectomy Other Attendee BOOKY BREAK RELIEF ST LUNCH RELIEF Superficial Wound Closed By: Last Modified By: MARY ANNE HASTINGS, RN MARY ANNE HASTINGS, RN 10/26/19 12:24:11 10/26/19 12:24:11 [facility] IntraOp Case Attendance Audit 10/26/19 12:24:11 Service Crew Leader: ROBBY Modifier: [email or web address] <*> Procedure Lumbar Fusion Posterior 3 Level, Thoracic Laminectomy 4 <+> Time Out 4 <*> Procedure Lumbar Fusion Posterior 3 Level, Thoracic Laminectomy 5 <+> Time Out 5 <*> Procedure Lumbar Fusion Posterior 3 Level, Thoracic Laminectomy 6 <+> Time Out 6 <*> Procedure Lumbar Fusion Posterior 3 Level, Thoracic Laminectomy 7 <+> Time Out 7 <*> Procedure Lumbar Fusion Posterior 3 Level, Thoracic Laminectomy 8 <+> Time Out 8 <*> Procedure Lumbar Fusion Posterior 3 Level, Thoracic Laminectomy 9 <+> Time Out 9 <*> Procedure Lumbar Fusion Posterior 3 Level, Thoracic Laminectomy 10 <*> Procedure Lumbar Fusion Posterior 3 Level, Thoracic Laminectomy 11 <+> Time Out 11 <*> Procedure Lumbar Fusion Posterior 3 Level, Thoracic Laminectomy 10/26/19 12:24:10 Service Crew Leader: [email or web address] Modifier: WASSONSY 1 <+> Time Out 1 <*> Procedure Lumbar Fusion Posterior 3 Level, Thoracic Laminectomy 2 <+> Time Out 2 <*> Procedure Lumbar Fusion Posterior 3 Level, Thoracic Laminectomy <+> 3 Time Out 10/26/19 11:21:45 Service Crew Leader: [email or web address] Modifier: [email or web address] <+> 10 Procedure <+> 11 Case Attendee <+> 11 Role Performed <+> 11 Time In <+> 11 Procedure <+> 11 Other Attendee 10/26/19 10:05:14 Service Crew Leader: [email or web address] Modifier: [email or web address] <+> 10 Time Out 10/26/19 10:03:54 Service Crew Leader: WASSONSY Modifier: [email or web address] <+> 10 Case Attendee <+> 10 Role Performed <+> 10 Time In <+> 10 Other Attendee 10/26/19 08:49:44 Service Crew Leader: WASSONSY Modifier: WASSONSY 1 <*> Procedure Lumbar Fusion Posterior 3 Level, Thoracic Laminectomy 2 <*> Procedure Lumbar Fusion Posterior 3 Level, Thoracic Laminectomy 3 <*> Procedure Lumbar Fusion Posterior 3 Level, Thoracic Laminectomy 4 <+> Case Attendee 4 <*> Procedure Lumbar Fusion Posterior 3 Level, Thoracic Laminectomy 5 <*> Procedure Lumbar Fusion Posterior 3 Level, Thoracic Laminectomy 6 <*> Procedure Lumbar Fusion Posterior 3 Level, Thoracic Laminectomy 7 <*> Procedure Lumbar Fusion Posterior 3 Level, Thoracic Laminectomy 8 <+> Time In 8 <*> Procedure Lumbar Fusion Posterior 3 Level, Thoracic Laminectomy 9 <+> Time In 9 <*> Procedure Lumbar Fusion Posterior 3 Level, Thoracic Laminectomy 10/26/19 08:23:58 Service Crew Leader: WASSONSY Modifier: WASSONSY <+> 8 Case Attendee <+> 8 Role Performed <+> 8 Procedure <+> 9 Case Attendee <+> 9 Role Performed <+> 9 Procedure <+> 9 Other Attendee 10/26/19 08:22:32 Service Crew Leader: WASSONSY Modifier: WASSONSY 1 <+> Time In 1 <*> Procedure Lumbar Fusion Posterior 3 Level, Thoracic Laminectomy 2 <+> Time In 2 <*> Procedure Lumbar Fusion Posterior 3 Level, Thoracic Laminectomy 3 <+> Time In 3 <*> Procedure Lumbar Fusion Posterior 3 Level, Thoracic Laminectomy 4 <+> Time In 4 <*> Procedure Lumbar Fusion Posterior 3 Level, Thoracic Laminectomy 5 <+> Time In 5 <*> Procedure Lumbar Fusion Posterior 3 Level, Thoracic Laminectomy 6 <+> Time In 6 <*> Procedure Lumbar Fusion Posterior 3 Level, Thoracic Laminectomy 7 <+> Time In 7 <*> Procedure Lumbar Fusion Posterior 3 Level, Thoracic Laminectomy [facility] IntraOp Case Times Entry 1 Patient In Room Time 10/26/19 08:20:00 Out Room Time 10/26/19 12:24:00 Anesthesia Start Time 10/26/19 08:20:00 Stop Time 10/26/19 12:24:00 Surgery / Procedure Times Start Time 10/26/19 08:57:00 Stop Time 10/26/19 12:11:00 Last Modified By: MARY ANNE HASTINGS RN 10/26/19 12:24:08 [facility] IntraOp Case Times Audit 10/26/19 12:24:08 Service Crew Leader: WASSONSY Modifier: WASSONSY <+> 1 Out Room Time <+> 1 Stop Time 10/26/19 12:12:54 Service Crew Leader: WASSONSY Modifier: WASSONSY <+> 1 Stop Time 10/26/19 08:57:23 Service Crew Leader: WASSONSY Modifier: WASSONSY <+> 1 Start Time [facility] IntraOp Cautery Entry 1 Entry 2 ESU Identification Cautery Type Monopolar ESU BiPolar ESU Cautery Type Comments ID Number [id number] ID Type Hospital Number Hospital Number Cautery Settings Cut Setting 45 8 Coag Setting 45 45 Blend Setting Bipolar Setting Argon Setting Argon Da Silva ESU Grounding Pad Ground Pad Type Adult Grounding Pad Type Comment Grounding Pad Site Right thigh Grounding Pad Site Comment Grounding Pad Brown Riojas RN Applied By Grounding Pad Site Warm, dry and intact Skin Condition Before Cautery Site Skin Condition Before Comment Grounding Pad Site Unchanged Skin Condition After Cautery Site Skin Condition After Comment Last Modified By: MARY ANNE HASTINGS, RN MARY ANNE HASTINGS RN 10/26/19 08:55:46 10/26/19 08:55:46 [facility] IntraOp Communication Entry 1 Communication To Family/Significant other Comment START Communication By MARY ANNE HASTINGS RN Date and Time 10/26/19 09:00:00 Last Modified By: MARY ANNE HASTINGS RN 10/26/19 09:01:20 [facility] IntraOp Counts Verification Entry 1 Entry 2 Procedure Lumbar Fusion Posterior Lumbar Fusion Posterior 3 Level, Thoracic 3 Level, Thoracic Laminectomy Laminectomy Count Info Count Type Sponge, Sharps, Sponge, Sharps, Miscellaneous Miscellaneous Counts Verification Baseline/pre-procedure Before wound closure Sequence Count Results Not Applicable Correct, surgeon notified If Incorrect or Waived complete the Counts Action Taken form: If Intentional Retention, complete the Intential Retention form: Counts Performed By Count Performed By JAMEEL REGALADO FLAVIA SALGADO (Scrub) Count Performed By MARY ANNE HASTINGS RN WASSON, SANDRA D RN (RN) Last Modified By: MARY ANNE HASTINGS RN Byrd, Charlie D, RN 10/26/19 08:49:57 10/26/19 11:51:42 [facility] IntraOp Counts Verification Audit 10/26/19 11:51:42 Service Crew Leader: WASSONSY Modifier: [email or web address] <+> 2 Procedure <+> 2 Count Type <+> 2 Counts Verification Sequence <+> 2 Count Results <+> 2 Count Performed By (Scrub) <+> 2 Count Performed By (RN) 10/26/19 08:49:57 Service Crew Leader: WASSONSY Modifier: WASSONSY 1 <*> Procedure Lumbar Fusion Posterior 3 Level, Thoracic Laminectomy 1 <+> Count Performed By (Scrub) [facility] IntraOp Counts Final Entry 1 Procedure Lumbar Fusion Posterior 3 Level, Thoracic Laminectomy Final Count Info Count Type Sponge, Sharps, Miscellaneous Counts Verification Skin Closure/end of Sequence procedure Count Results Correct, surgeon notified Counts Performed By Count Performed By FLAVIA SALGADO (Scrub) Count Performed By MARY ANNE HASTINGS RN (RN) Last Modified By: MARY ANNE HASTINGS RN 10/26/19 12:13:16 [facility] IntraOp Cultures and Spec Summary Entry 1 Cultrures and Specimens Specimen Ordered: Yes Test(s) Routine/Path-Lab Requested/Final Disposition Last Modified By: Brown Riojas RN 10/26/19 10:10:59 General Comments: A. SYNOVIAL CYST [facility] IntraOp Delays Entry 1 Delay Reason Surgeon late - did not call Duration 20 Minute(s) Last Modified By: MARY ANNE HASTINGS RN 10/26/19 09:01:35 [facility] IntraOp Departure from OR Entry 1 Integumentary Assessment Integumentary WDL Assessment WDL Transfer/Handoff Transfer to PACU Phase I Handoff Method Phone call Handoff Reported to RUPERTO CHOU RN Post-op Transport Stretcher/Gurney Via Patient Transport SONU BAUER, Accompanied by MONSERRAT, EVE JACKSON PA Last Modified By: Brown Riojas RN 10/26/19 11:52:41 [facility] IntraOp Departure from OR Audit 10/26/19 11:52:41 Service Crew Leader: ROBBY Modifier: [email or web address] 1 <*> Post-op Transport Via Bed (including specialty) 1 <*> Patient Transport Accompanied by SONU BAUER CRNA 1 <+> Handoff Reported to [facility] IntraOp Drains and Tubes Entry 1 Device Type Josef Ureña round drain Size 15 FR X'S 2 Drain/Tube Activity Inserted Drain/Tube Suction Bulb Drain/Tube Drainage Serosanguineous Device Location OP SITES Method of Drainage Compression Last Modified By: Brown Riojas RN 10/26/19 11:47:40 [facility] IntraOp Dressing and Packing Entry 1 Type Dressing Location OP SITES Wound Dressing Item Other Applied By EVE JACKSON PA Other Comments NEOSPORIN OINTMENT, COVADERMS Last Modified By: Brown Riojas RN 10/26/19 11:27:33 [facility] IntraOp Fire Risk Assessment Entry 1 Fire Info Surgical Site or 0- No Incision Above the Xyphoid Open O2 Source 0- No (Mask or Cannula) Available Ignition 1- Yes (ESU, Laser, Light Source) Fire Risk 1 Assessment Score Fire Score Fire Risk Yes Assessment Complete Fire Risk MARY ANNE HASTINGS RN Assessment Verified By Fire Risk 10/26/19 08:10:00 Assessment Verified Date/Time Fire Risk Standard Fire Yes Safety Precautions Followed Last Modified By: MARY ANNE HASTINGS RN 10/26/19 08:09:11 [facility] IntraOp General Case Process Control Board Operator 1 Case Information OR OR 10 [facility] Case Level 1 Room Verified Yes Wound Class I - Clean Specialty SN Neurosurgery Anesthesia Type General ASA Class 3 Diagnosis Preop Diagnosis SPINAL STENOSIS Postop Same As Preop No Postop Diagnosis SEE MD POST OP NOTE Last Modified By: MARY ANNE HASTINGS RN 10/26/19 09:07:06 [facility] IntraOp General Case Data Audit 10/26/19 09:07:06 Service Crew Leader: ROBBY Modifier: ROBBY <+> 1 ASA Class [facility] IntraOp Implant Log Entry 1 Entry 2 Entry 3 Type Tissue Implant Implant (Synthetic) Implant (Synthetic) (Biologic) Implant Log Implant Type Hardware Hardware Tissue Implant Type Bone Implant BONE VIVIGEN FORMABLE SCR PATRICIA FIX 7X50MM SCR PATRICIA FIX 7X55MM Identification [facility]-[id number] Description Implant Quantity 1 6 2 Implant Site OP SITE OP SITE OP SITE Implant [id number] Identification Model Number Implant Identification Serial Number Implant Identification Lot Number Implant Lifenet:Lifenet J&J:Depuy:Depuy Spine J&J:Depuy:Depuy Spine Identification Transplant Srv Lpn Medical Assistant Name: Implant [id number] Identification Catalog Number Implant Size Implant Has an Yes Expiration Date Implant Expiration 10/04/20 Date Wasted Radioactive Material Time Implanted Tissue Implant Continue for Tissue Implant Documentation Tissue Identification Number Graft Prep Per Yes Lpn Medical Assistant Instructions: Tissue Preparation Method: Reconstitution Solution: Reconstitution Solution Lot Number Reconstitution Solution Expiration Date: Thawing Solution Thawing Solution Lot Number Thawing Solution Expiration Date Preparation Materials, Other Preparation Materials, Other Lot Number Preparation Materials, Other Expiration Date Tissue Prepared/Processed By Lpn Medical Assistant Yes Paperwork Completed Implant Type Comment Last Modified By: Brown Riojas RN Byrd, Charlie D, RN Byrd, Charlie D, RN 10/26/19 10:43:05 10/26/19 11:31:09 10/26/19 11:31:09 Entry 4 Entry 5 Type Implant (Synthetic) Implant (Synthetic) Implant Log Implant Type Hardware Hardware Tissue Implant Type Implant MIS NOEMI PLY SCRW SET JUDY PRE LOAD [id number] Identification [id number] Description Implant Quantity 8 2 Implant Site OP SITE OP SITE Implant Identification Model Number Implant Identification Serial Number Implant Identification Lot Number Implant J&J:Depuy:Depuy Spine J&J:Depuy:Depuy Spine Identification Lpn Medical Assistant Name: Implant [id number] Identification Catalog Number Implant Size Implant Has an Expiration Date Implant Expiration Date Wasted Radioactive Material Time Implanted Tissue Implant Continue for Tissue Implant Documentation Tissue Identification Number Graft Prep Per Lpn Medical Assistant Instructions: Tissue Preparation Method: Reconstitution Solution: Reconstitution Solution Lot Number Reconstitution Solution Expiration Date: Thawing Solution Thawing Solution Lot Number Thawing Solution Expiration Date Preparation Materials, Other Preparation Materials, Other Lot Number Preparation Materials, Other Expiration Date Tissue Prepared/Processed By Lpn Medical Assistant Paperwork Completed Implant Type Comment Last Modified By: Brown Riojas RN Byrd, Charlie D, RN 10/26/19 11:31:09 10/26/19 11:31:09 [facility] IntraOp Implant Log Audit 10/26/19 11:31:09 Service Crew Leader: VALERIANO Modifier: VALERIANO <+> 2 Implant Identification Description <+> 2 Implant Identification Lpn Medical Assistant Name: <+> 2 Implant Site <+> 2 Implant Quantity <+> 2 Implant Identification Catalog Number <+> 2 Implant Type <+> 2 Type <+> 3 Implant Identification Description <+> 3 Implant Identification Lpn Medical Assistant Name: <+> 3 Implant Site <+> 3 Implant Quantity <+> 3 Implant Identification Catalog Number <+> 3 Implant Type <+> 3 Type <+> 4 Implant Identification Description <+> 4 Implant Identification Lpn Medical Assistant Name: <+> 4 Implant Site <+> 4 Implant Quantity <+> 4 Implant Identification Catalog Number <+> 4 Implant Type <+> 4 Type <+> 5 Implant Identification Description <+> 5 Implant Identification Lpn Medical Assistant Name: <+> 5 Implant Site <+> 5 Implant Quantity <+> 5 Implant Identification Catalog Number <+> 5 Implant Type <+> 5 Type [facility] IntraOp Intraoperative Assessment Entry 1 Handoff Reported to Brown Riojas RN Handoff Method Bedside/Face to face, Online nursing summary Valid History / Yes Physical in Chart Preoperative Yes Checklist Reviewed/Evaluated Allergies Reviewed Yes Patient is Latex No Sensitive Isolation Not applicable Precautions Noted Level of WDL Consciousness (WDL = Alert, Oriented to Person, Place, and Time) Skin Assessment No Verified Present Upon IVs Arrival to OR Last Modified By: MARY ANNE HASTINGS RN 10/26/19 09:01:59 [facility] IntraOp Intraoperative Equipment Entry 1 Type Equipment Equipment Equipment Aidan Suction System ID Number [id number] Setting 200 MM HG Intraop Monitoring Electrocardiogram Five lead placement (ECG) Electrode Placement Blood Pressure Non-Invasive BP Device Source Blood Pressure Arm, left upper Location Pulse Oximeter Hand, right Probe Site Antiembolic Devices Antiembolic Devices Sequential compression device, knee high Antiembolic Device Bilateral Location Antiembolic Device [id number] ID Number Antiembolic Device standard Setting Scopes Photo/Video Documentation Photo No Video No Last Modified By: MARY ANNE HASTINGS RN 10/26/19 09:02:31 [facility] IntraOp Medication Admin Entry 1 Entry 2 Entry 3 Medication/Irrigant thrombin 5000units SPNG SURGFOAM SEALR AQUAMANTYS BIPLR topical powder - [id number] Combo Med List Time Administered Route of topical TOPICAL OTHER Administration Dose Dose 5000 1 Unit of Measure units pkt Volume qs Administered By TANIA BEE MD-SNU OWEN, ROBERT D, MD-SNU OWEN, ROBERT D, MD-SNCristin Procedure Irrigation Irrigant Volume In Irrigant Volume Out Last Modified By: MARY ANNE HASTINGS, MARY ANNE HALLMAN, MARY ANNE HALLMAN RN 10/26/19 09:04:45 10/26/19 09:04:45 10/26/19 09:04:45 Entry 4 Entry 5 Medication/Irrigant Neosporin 15Gm ointment MATRIX FLOSEAL HEMO - [id number] Combo Med List Time Administered Route of TOPICAL TOPICAL Administration Dose Dose 1 10 Unit of Measure pkt ml Volume Administered By EVE JACKSON PA OWEN, ROBERT D, MD-SNCristin Procedure Irrigation Irrigant Volume In Irrigant Volume Out Last Modified By: MARY ANNE HASTINGS RN Byrd, Charlie D, RN 10/26/19 09:04:45 10/26/19 10:04:18 [facility] IntraOp Medication Admin Audit 10/26/19 10:04:18 Service Crew Leader: ROBBY Modifier: [email or web address] <+> 5 Medication/Irrigant <+> 5 Route of Administration <+> 5 Administered By <+> 5 Dose <+> 5 Unit of Measure [facility] IntraOp Patient Positioning Entry 1 Procedure Lumbar Fusion Posterior 3 Level Body Position Prone Left Arm Position Secured on padded arm board Right Arm Position Secured on padded arm board Left Leg Position Elevated Right Leg Position Elevated Feet Uncrossed Yes Pressure Points Yes Checked Positioning Devices Head Rest, Pad, Elbow, Pillows, Safety Strap, Thighs, Table, Spinal, Pad, Arm, Safety Strap, Arm(s) Device Position PRONE ON T3 TRUMPF FRAME WITH CHEST, HIP AND THIGH PADS Positioned By Brown Riojas, RN, SONU BAUER CRNA, TANIA BEE MD-RODRI, MARY ANNE HASTINGS, RN Position Verified Positioning Yes Verified by Anesthesia Positioning Yes Verified by Surgeon Last Modified By: MARY ANNE HASTINGS RN 10/26/19 09:03:44 [facility] IntraOp Sign In Entry 1 Patient, Site, Yes Procedure Identified Surgical Consent Yes Confirmed Relevant Surgical Yes Documents Available Surgical Site N/A Marked by person performing procedure Anesthesia Machine Yes Check Completed Medication Checks Yes Completed Allergies Yes Airway Difficult No Airway/Aspiration Risk Difficult Yes Airway/Aspiration Intervention Equipment Available Blood Loss Risk Yes Blood Loss Yes Intervention Equipment Prepared and Ready Blood Identifiers Yes Verified Per Policy Hypothermia Risk Yes Warming Measures Yes Taken Last Modified By: MARY ANNE HASTINGS RN 10/26/19 08:23:20 [facility] IntraOp Sign Out Entry 1 RN Confirmation Surgical Yes Procedure(s) Identified Instrument, Sponge Yes and Sharps Counts Correct/Documented Equipment Problems N/A Documented Specimen Labeled Yes Correctly Urinary Catheter Yes Documented in IView Grayson Patient Yes Recovery Concerns Reviewed with Anesthesia Provider, Surgeon and RN Grayson Patient Yes Management Concerns Reviewed with Anesthesia Provider, Surgeon and RN Safety Checklist Yes Elements Complete? RN Sign Out Brown Riojas RN Signature RN Sign Out 10/26/19 12:24:00 Signature Date/Time Plan of Care Outcome - Fire Risk OUTCOME STATEMENT: Goal met Patient is free from injury related to surgical fire Plan of Care Outcome - Pt Positioning OUTCOME STATEMENT: Goal met Absence of signs and symptoms of positioning injury. Plan of Care Outcome - Skin Prep OUTCOME STATEMENT: Goal met Intraoperative care is consistent with measures to prevent infection Plan of Care Outcome - Xray/Images OUTCOME STATEMENT: Goal met Absence of observable signs or symptoms of radiation injury Plan of Care Outcome - Counts OUTCOME STATEMENT: Goal met Absence of signs and symptoms of injury related to extraneous objects Last Modified By: MARY ANNE HASTINGS RN 10/26/19 12:24:21 [facility] IntraOp Sign Out Audit 10/26/19 12:24:21 Service Crew Leader: ROBBY Modifier: WASSONSY 1 <*> Specimen Labeled Correctly N/A 1 <+> RN Sign Out Signature Date/Time [facility] IntraOp Skin Prep Entry 1 Procedure Lumbar Fusion Posterior 3 Level Prescribed Yes Pre-Surgical Prep Completed Prep Area back Intraop Prep Integumentary WDL Assessment WDL Prep Agents Chloraprep Prep by Brown Riojas RN Hair Removal Methods No hair removal performed Last Modified By: MARY ANNE HASTINGS RN 10/26/19 09:02:45 [facility] IntraOp Surgical Procedures Entry 1 Entry 2 Procedure Lumbar Fusion Posterior Thoracic Laminectomy 3 Level Modifiers Additional (L3-S1 FUSION USING Procedure AIRO, T10-11 Description LAMINECTOMY) Primary Procedure Yes No Primary Surgeon TANIA BEE MD-SNTANIA CALERO MD-SNU Start 10/26/19 08:57:00 10/26/19 08:57:00 Stop 10/26/19 12:11:00 10/26/19 12:11:00 Physician States Cecum Reached Anesthesia Type General General Specialty SN Neurosurgery SN Neurosurgery Wound Class I - Clean I - Clean Last Modified By: MARY ANNE HASTINGS RN WASSON, SANDRA D, RN 10/26/19 12:12:57 10/26/19 12:12:57 [facility] IntraOp Surgical Procedures Audit 10/26/19 12:12:57 Service Crew Leader: ROBBY Modifier: WASSONSY <+> 1 Stop <+> 2 Stop [facility] IntraOp Temp Regulation Devices Entry 1 Temp Regulation Temperature Forced Air Warming Regulation Device device, Warm blankets Temperature 93168 Regulation Device Serial/Unit Number Temperature Upper body Regulation Site Temperature Device 43 C Setting Temperature COMBEST, SONU P, BOOKY Regulation Device Applied by Last Modified By: MARY ANNE HASTINGS RN 10/26/19 09:05:06 [facility] IntraOP Time Out Entry 1 Procedure to be Lumbar Fusion Posterior Performed 3 Level, Thoracic Laminectomy Time Out Time Out Pause Time 10/26/19 08:56:00 All activity Yes suspended (unless life threatening emergency) Team Verbally Correct patient Confirms Information identity, Consent form is present and accurate, Agreement on the procedure to be done, Correct patient position, Relevant images/results properly labeled/appropriately displayed, Confirm antibiotics have been administered, Confirm the skin prep has dried, Confirm prosthesis/implant/devic e is present, Performed in location of procedure after prepped/draped Antibiotic Yes Prophylaxis Administered Or In Progress Within the Last 60 Minutes Beta Garo Yes Administered Venous Yes Thromboembolism Prophylaxis Required Anticipated Critical Events Surgeon None expected Anesthesia Provider Patient specific concerns Nursing Assures Sterility of instruments, Equipment concerns or issues, Implant Availability Essential Imaging Yes Labeled and Displayed Last Modified By: MARY ANNE HASTINGS RN 10/26/19 08:57:36 [facility] IntraOP Time Out Audit 10/26/19 08:57:36 Service Crew Leader: ROBBY Modifier: ROBBY 1 <*> Beta Garo Administered N/A 1 <*> Procedure to be Performed Lumbar Fusion Posterior 3 Level, Thoracic Laminectomy [facility] IntraOp X-Ray and Images Entry 1 X-Ray/Imaging Type Other Fluoroscopy Type Other Site back Control Technician Name Padmini Escamilla, Stock Shaper Protective Devices Yes Used X-Ray and Imaging brainlab intraoperative Comment ct scanner Last Modified By: MARY ANNE HASTINGS RN 10/26/19 09:02:58 Case Comments <None> Finalized By: KIMBERLYN DA SILVA Document Signatures Signed By: MARY ANNE HASTINGS RN 10/26/19 12:24 KIMBERLYN DA SILVA 10/27/19 10:14 Unfinalized History Date/Time Username Reason for Unfinalizing Freetext Reason for Unfinalizing 10/27/19 10:11 [email or web address] Correct Billing documented in this encounter Plan of Treatment Not on file documented as of this encounter Visit Diagnoses Not on filedocumented in this encounter Care Teams City Designer Relationship Specialty Start Date End Date Jennifer Harp, CLAIMS ANALYST [address] [place] [address] PCP - General Family Medicine 12/18/22 documented as of this encounter
--- OUTSIDE RECORDS SUMMARY | 2025-02-21 11:43 | XMS_ITS | Patient Health Record ---
Author Organization [facility]Bertrand Mensah MD Address [address] [facility] [place] [address] Care Team Providers Care School Bus Driver/Teacher Assistant Name Role Phone Pam, Dr Berry Primary Care Provider Unavaila Bertrand Avila Unavailable [phone] Maikol SHELLEY, DR Ray Unavailable Unavailable Allergies Allergen (clinical drug ingredient) Drug/Non Drug Allergy documented on EMR Reaction Allergy Type Onset Date Status Penicillin Unknown Drug Allergy Active Reason For Referral No Information Medications Medication SIG (Take, Route, Fr equency, Duration) Notes Start Date End Date Status Losartan Potassium A ctive Lovastatin Active oxyBUTYnin Chloride ER Active Alfuzosin HCl ER Act adam Furosemide Active Omeprazole Active FLUoxetine HCl Activ e Durezol Active Sertraline HCl Activ e Carvedilol Active Clopidogrel Bisulfate Active Social History Tobacco Use: Social History Observation Description Date Details (start date - stop date) Never Smoker NA - NA Smoking Question Answer Notes Do you Smoke ? no Problems Problem Type SNOMED Code ICD Code Onset Dates Problem Status W/U Status Risk Notes Problem Obstructive sleep apnea syndrome (51120411) LINK (obstructive sleep apnea) (G47.33) Active confirmed Problem Laryngopharyngeal reflux (836892506) Laryngopharyngeal reflux (LPR) (K21.9) Active confirmed Plan Of Treatment No Information Insurance Providers Payer Name Payer Address Payer Phone Subscriber Number Group Number Insured Name Patient Relationship to Insured Coverage Start Date Coverage End Date [employer] [address] [address] [place] [address] [phone] [id number] Jamir Villafuerte Self - patient is the insured Medical (General) History Medical History History ICD Code Thyroid Disease No hypertension Yes asthma No Diabetes No Diabetes Insulin Dependent No Heart Disease Yes Cancer yes Lung Disease No kidney stones No Surgical History Surgery Date(Month/Year) Heart Prostate Hospitalization History Reason Date(Month/Year) couldn't swallow feb 2019
--- OUTSIDE RECORDS SUMMARY | 2025-02-21 11:43 | XMS_ITS | Encounter Summary ---
Author Organization [employer] ([place], [place], [place], [place]) Address [address] [place] [address] Care Team Providers Care Training Program Developer Name Role Phone Jennifer Harp DANYELLE Primary Care Provider [phone] Encounter Details Date Type Department Care Team (Late st Contact Info) Description 10/30/2019 Transcribed Document [facility] Neurology - [address] [address] Jamal Locke Jr., MD [address] [place] [address] Social History Tobacco Use Types Packs/Day Years Used Date Smoking Tobacco: Never Assessed Sex and Gender Information Value Date Recorded Sex Assigned at Male 11/21/2021 4:44 PM CDT Legal Sex Male 4:44 PM CDT Gender Identity Male 11/21/2021 4:44 PM CDT Sexual Orientation Not on file documented as of this encounter Miscellaneous Notes * Cerner Conversion Note - Jamal Locke Jr., MD - 10/30/2019 8:59 AM EDT Patient: JAMIR VLILAFUERTE Age: 74 years Sex: Male : 1945 Associated Diagnoses: None Author: EVE JACKSON PA Subjective Pain well controlled with medication Objective VS/Measurements Vitals Signs (last 24 hrs) Last Charted Minimum Maximum Temp 97.6 (OCT 29 06:00) 97.6 (OCT 29 06:00) 99.1 (OCT 28 11:48) Mon HR 68 (OCT 29 06:00) 67 (OCT 29 02:13) 90 (OCT 28 11:48) Resp Rate 16 (OCT 29 06:00) 16 (OCT 28 18:00) 17 (OCT 28 11:48) SBP 140 (OCT 29 06:00) 103 (OCT 28 18:00) 140 (OCT 29 06:00) DBP 65 (OCT 29 06:00) L 44 (OCT 28 18:00) 67 (OCT 28 11:48) MAP 82 (OCT 29 06:00) 59 (OCT 28 18:00) 82 (OCT 29 06:00) SpO2 96 (OCT 29 06:00) L 93 (OCT 28 21:08) 98 (OCT 29 02:13) AAOx3. Incision clean, dry, and intact. Ambulated with PT 250' yesterday. Impression and Plan POD 4 L3-S1 fusion and T10-11 laminectomy. Continue PT/OT. Discharge to inpatient rehab when available. Discussed wound care and follow up. documented in this encounter Plan of Treatment Not on file documented as of this encounter Visit Diagnoses Not on filedocumented in this encounter Care Teams Training Program Developer Relationship Specialty Start Date End Date Jennifer Harp, AIR DEODORIZER SERVICER [address] [place] [address] PCP - General Family Medicine 12/18/22 documented as of this encounter
--- OUTSIDE RECORDS SUMMARY | 2025-02-21 11:43 | XMS_ITS | Encounter Summary ---
Author Organization [employer] ([place], [place], [place], [place]) Address [address] [place] [address] Care Team Providers Care Superintendent Stations Name Role Phone Jennifer Harp Kwesi BASSETT Primary Care Provider [phone] Encounter Details Date Type Department Care Team (Late st Contact Info) Description 10/29/2019 Transcribed Document [facility] Radiology [address] [place] [address] Nerissa Sharma MD [address] [place] [address] Social History Tobacco Use Types Packs/Day Years Used Date Smoking Tobacco: Never Assessed Sex and Gender Information Value Date Recorded Sex Assigned at Male 11/21/2021 4:44 PM CDT Legal Sex Male 4:44 PM CDT Gender Identity Male 11/21/2021 4:44 PM CDT Sexual Orientation Not on file documented as of this encounter Miscellaneous Notes * Cerner Conversion Note - Nerissa Sharma MD - 10/29/2019 9:52 AM EDT Patient: JAMIR VILLAFUERTE Age: 74 years Sex: Male : 1945 Associated Diagnoses: None Author: EL LOMBARDO PA-QUIN 10/29/2019 cc: medical management s/p posterior lumbar fusion per Dr. Locke S: Pt is doing ok. No f'/c/s. No n/v/d. (+) gas, (-) BM. No CP, SOA, palpitations. No cough or sputum. Urinating well. +post op pain. Using incentive spirometer. states that he hurt a lot today when up with therapy and wasn't able to do too much. waiting for rehab placement. HPI: Patient is a 74 yo male admitted to [facility] per Dr. Locke for a posterior lumbar fusion. Preoperatively patient was found to have advanced spondylolisthesis of the lumbar spine and elected surgical intervention after failing conservative treatment. Patient is followed perioperatively while hospitalized for medical management. Initial visit seen on floor - Denies prior stroke or seizure. Denies [place], CHF or cardiac arrhythmia. Has had to [...] Tab, Oral, Daily Nasacort Allergy 24HR 1 [place], Nasal, Daily omeprazole 40 mg, Oral, Daily Plavix 75 mg, Oral, Daily Refresh Optive 1 Drop, Eye Right, Daily sertraline 25 mg, Oral, Daily Exam: Vitals Signs (last 24 hrs) Last Charted Minimum Maximum Temp 97.7 (OCT 28 05:08) 97.7 (OCT 28 05:08) 98.1 (OCT 27 21:05) Mon HR 72 (OCT 28 05:08) 66 (OCT 27 21:05) 72 (OCT 28 05:08) Resp Rate 16 (OCT 28 05:08) 16 (OCT 27 21:05) 16 (OCT 27 21:05) SBP H 152 (OCT 28 05:08) 105 (OCT 27 21:05) H 152 (OCT 28 05:08) DBP 76 (OCT 28 05:08) L 54 (OCT 27 21:05) 76 (OCT 28 05:08) MAP 95 (OCT 28 05:08) 66 (OCT 27 21:05) 95 (OCT 28 05:08) SpO2 96 (OCT 27 20:37) 96 (OCT 27 20:37) 96 (OCT 27 20:37) GEN: awake, but a little sleepy, NAD; sitting up in chair. CV: S1S2, no murmur. No LE edema Resp: CTAB, NL Abd: Soft, NT, ND +BS Skin: no rashes on inspection and palpation. Ext: No LE edema. No joint edema, erythema. no calf tenderness Neuro: O x 3 Data: Blood Gases (Current Encounter/Past 24 Hours) No Blood Gas Results Found (Past 24 Hours) Electrolytes(BMP) Results (Current Encounter/Past 24 Hours) Sodium Level 134 mmol/L LOW 10/29/2019 04:49 Potassium Level 4.9 mmol/L 10/29/2019 04:49 Chloride Level 105 mmol/L 10/29/2019 04:49 Carbon Dioxide Level 27 mmol/L 10/29/2019 04:49 Anion Gap 7 LOW 10/29/2019 04:49 Blood Urea Nitrogen 29 mg/dL MS 10/29/2019 04:49 Glucose Level 120 mg/dL MS 10/29/2019 04:49 Calcium Level 8.5 mg/dL 10/29/2019 04:49 Creatinine Level 1.70 mg/dL MS 10/29/2019 04:49 Cardiac Markers (Current Encounter/Past 24 Hours) No Cardiac Marker Results Found (Past 24 Hours) CBC Results (Current Encounter/Past 24 Hours) WBC 10.2 K/uL MS 10/29/2019 04:28 Hct 35.1 % LOW 10/29/2019 04:28 Hgb 12.0 g/dL LOW 10/29/2019 04:28 Platelet Count 146 K/uL LOW 10/29/2019 04:28 CMP Results (Current Encounter/Past 24 Hours) Creatinine Level 1.70 mg/dL MS 10/29/2019 04:49 Bun/Creatinine 17.1 10/29/2019 04:49 eGFR 48 mL/min/1.73m2 LOW 10/29/2019 04:49 eGFR NonAfrican 40 mL/min/1.73m2 LOW 10/29/2019 04:49 Sodium Level 134 mmol/L LOW 10/29/2019 04:49 Potassium Level 4.9 mmol/L 10/29/2019 04:49 Chloride Level 105 mmol/L 10/29/2019 04:49 Carbon Dioxide Level 27 mmol/L 10/29/2019 04:49 Anion Gap 7 LOW 10/29/2019 04:49 Blood Urea Nitrogen 29 mg/dL MS 10/29/2019 04:49 Glucose Level 120 mg/dL MS 10/29/2019 04:49 Calcium Level 8.5 mg/dL 10/29/2019 04:49 Coagulation Results (Current Encounter/Past 24 Hours) No Coagulation Results Found (Past 24 Hours) Creatinine Clearance (Current Encounter/Past 24 Hours) Creatinine Level 1.70 mg/dL HI 10/29/2019 04:49 Bun/Creatinine 17.1 10/29/2019 04:49 Estimated Creatinine Clearance 35.64 mL/Min 10/29/2019 04:49 No Radiology Results Found Preop: Reviewed CBC, BMP, UA Creatinine 1.5 EKG with normal sinus rhythm, heart rate of 61 Impression: advanced spondylolisthesis Lspine; -Status post posterior lumbar fusion per Dr. Locke hypotension - due to decreased volume. Almost 1L from ALICIA drain. bolused with IVF and symptoms improved. 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 Continue to monitor . awaiting rehab placement pending precert; hoping for [facility] . Pt gets fatigue easily with therapy and I think that he would benefit from inpt rehab. He is worried about going home and falling and not being able to help. bipap Will hold ARB, reassess bp and renal function Monitor HTN; add PRN's, hold parameters???for beta [...] on filedocumented in this encounter Care Teams Superintendent Stations Relationship Specialty Start Date End Date Jennifer Harp, CERTIFIED FRAUD EXAMINER [address] [place] [address] PCP - General Family Medicine 12/18/22 documented as of this encounter
--- OUTSIDE RECORDS SUMMARY | 2025-02-21 11:43 | XMS_ITS | Encounter Summary ---
Author Organization [employer] ([place], [place], [place], [place]) Address [address] [place] [address] Care Team Providers Care Manager File Name Role Phone HarpJennifer robles Kwesi BASSETT Primary Care Provider [phone] Encounter Details Date Type Department Care Team (Late st Contact Info) Description 10/29/2019 Transcribed Document [facility] [address] ProviderHarsh MD [address] [place] [address] Social History Tobacco Use Types Packs/Day Years Used Date Smoking Tobacco: Never Assessed Sex and Gender Information Value Date Recorded Sex Assigned at Male 11/21/2021 4:44 PM CDT Legal Sex Male 4:44 PM CDT Gender Identity Male 11/21/2021 4:44 PM CDT Sexual Orientation Not on file documented as of this encounter Miscellaneous Notes * Cerner Conversion Note - Historical ProviderMD - 10/29/2019 5:00 PM CDT Chart Check - Review Order Profile Entered On: 10/29/2019 16:16 EDT Performed On: 10/29/2019 17:00 EDT by Tara Steinberg, RN Chart Check Powerplans Initiated/Discontinued as Appropriate : Yes All Active Orders Reviewed : Yes Tara Steinberg, RN - 10/29/2019 16:16 EDT documented in this encounter Plan of Treatment Not on file documented as of this encounter Visit Diagnoses Not on filedocumented in this encounter Care Teams Manager File Relationship Specialty Start Date End Date Jennifer Harp, CHAR FILTER OPERATOR [address] [place] [address] PCP - General Family Medicine 12/18/22 documented as of this encounter
--- OUTSIDE RECORDS SUMMARY | 2025-02-21 11:43 | XMS_ITS | Encounter Summary ---
Author Organization [employer] ([place], [place], [place], [place]) Address [address] [place] [address] Care Team Providers Care Regional Ehs Manager Name Role Phone Jennifer Harp DANYELLE Primary Care Provider [phone] Encounter Details Date Type Department Care Team (Late st Contact Info) Description 10/29/2019 Transcribed Document [facility] Neurology - [address] [address] Tania Bee Jr., MD [address] [place] [address] Social History Tobacco Use Types Packs/Day Years Used Date Smoking Tobacco: Never Assessed Sex and Gender Information Value Date Recorded Sex Assigned at Male 11/21/2021 4:44 PM CDT Legal Sex Male 4:44 PM CDT Gender Identity Male 11/21/2021 4:44 PM CDT Sexual Orientation Not on file documented as of this encounter Miscellaneous Notes * Cerner Conversion Note - Tania Bee Jr., MD - 10/29/2019 5:30 PM EDT Patient: JAMIR VILLAFUERTE Age: 74 years Sex: Male : 1945 Associated Diagnoses: None Author: TANIA BEE MD-SNU i saw today pt was walking to bathroom pain moderate chart reviewed rehab pending f/u doodnauth recs cont current care documented in this encounter Plan of Treatment Not on file documented as of this encounter Visit Diagnoses Not on filedocumented in this encounter Care Teams Regional Ehs Manager Relationship Specialty Start Date End Date Jennifer Hapr, CLINICAL REGISTERED NURSE [address] [place] [address] PCP - General Family Medicine 12/18/22 documented as of this encounter
--- OUTSIDE RECORDS SUMMARY | 2025-02-21 11:43 | XMS_ITS | Encounter Summary ---
Author Organization [employer] ([place], [place], [place], [place]) Address [address] [place] [address] Care Team Providers Care Boiler Inspector Name Role Phone Jennifer Harp DANYELLE Primary Care Provider [phone] Encounter Details Date Type Department Care Team (Late st Contact Info) Description 10/29/2019 Transcribed Document [facility] Neurology - [address] [address] Jamal Locke Jr., MD [address] [place] [place] [address] Social History Tobacco Use Types Packs/Day Years Used Date Smoking Tobacco: Never Assessed Sex and Gender Information Value Date Recorded Sex Assigned at Male 11/21/2021 4:44 PM CDT Legal Sex Male 4:44 PM CDT Gender Identity Male 11/21/2021 4:44 PM CDT Sexual Orientation Not on file documented as of this encounter Miscellaneous Notes * Cerner Conversion Note - Jamal Locke Jr., MD - 10/29/2019 9:05 AM EDT Patient: JAMIR VILLAFUERTE Age: 74 years Sex: Male : 1945 Associated Diagnoses: None Author: EVE JACKSON PA Subjective Back sore, but leg pain improved since surgery. Objective VS/Measurements Vitals Signs (last 24 hrs) [...] 96 (OCT 27 20:37) 96 (OCT 27 08:48) 96 (OCT 27 08:48) AAOx3. Incisions intact. ALICIA drains have been removed. Ambulated with PT 300' and 380' yesterday with PT. Impression and Plan POD 3 L3-S1 fusion and T10-11 laminectomy. Start heparin for dvt prophylaxis. Continue PT/OT. Will need inpatient rehab, precert pending. D/C to rehab when available. Discussed wound care and follow up. documented in this encounter Plan of Treatment Not on file documented as of this encounter Visit Diagnoses Not on filedocumented in this encounter Care Teams Boiler Inspector Relationship Specialty Start Date End Date Jennifer Harp, RN CARE TRANSITION [address] [place] [address] PCP - General Family Medicine 12/18/22 documented as of this encounter
--- OUTSIDE RECORDS SUMMARY | 2025-02-21 11:43 | XMS_ITS | Encounter Summary ---
Author Organization [employer] ([place], [place], [place], [place]) Address [address] [facility] [place] [address] Care Team Providers Care Senior Architect Name Role Phone HarpJennifer robles Kwesi BASSETT Primary Care Provider [phone] Encounter Details Date Type Department Care Team (Late st Contact Info) Description 10/30/2019 Transcribed Document [facility] [place] [facility] [place] [address] ProviderHarsh MD [address] [place] [address] Social History Tobacco Use Types Packs/Day Years Used Date Smoking Tobacco: Never Assessed Sex and Gender Information Value Date Recorded Sex Assigned at Male 11/21/2021 4:44 PM CDT Legal Sex Male 4:44 PM CDT Gender Identity Male 11/21/2021 4:44 PM CDT Sexual Orientation Not on file documented as of this encounter Miscellaneous Notes * Cerner Conversion Note - Historical ProviderMD - 10/30/2019 3:26 PM CDT Discharge Summary, PT Entered On: 10/30/2019 15:28 EDT Performed On: 10/30/2019 15:26 EDT by LESVIA WADE, PT Discharge Summary Discharge Summary Provider Notified : Nursing, director of housing and energy services/case management Reason for Discharge : Discharged from hospital Discharged to, Therapy : Unit, rehabilitation (Comment: [facility] [LESVIA WADE, PT - 10/30/2019 15:26 EDT] ) Discharge Equipment, PT : None Discharge Summary Comment, PT : As of 10/30/2019, the pt required Donis for sit to stand and stand to sit transfers. The pts biggest limitation is bed mobility secondary to weakness and pain. He requires ModA for supine to sit and sit to supine. The pt has orders to don LSO brace when up and ambulating. The pt was able to ambulate 350' today with RWx and supervision. The pt met 1/4 STG and 0/4 LTG. The pt has been discharged to [facility]. LESVIA WADE, PT - 10/30/2019 15:26 EDT Short Term Goals Mobility/Bed Mobility STG PT Grid Goal #1 Activity : Supine to sit Assist : Supervision or set-up Date to Meet : 11/03/2019 EDT Goal Status : Not met LESVIA WADE, PT - 10/30/2019 15:26 EDT Transfer STG Grid Goal #1 Destination : Chair, with arms Assist : Supervision or set-up Date to Meet : 11/03/2019 EDT Goal Status : Not met LESVIA WADE PT - 10/30/2019 15:26 EDT Ambulation STG Grid Goal #1 Device : Walker, front wheel Distance : 250' Assist : Supervision or set-up Date to Meet : 11/03/2019 EDT Goal Status : Goal met Date Met : 10/28/2019 EDT LESVIA WADE PT - 10/30/2019 15:26 EDT Stairs STG Grid Goal #1 Device : Cane, single point Number of Steps : 8 Handrail(s) : One handrail Assist : Assist, minimal Date to Meet : 11/03/2019 EDT Goal Status : Not Met LESVIA WADE PT - 10/30/2019 15:26 EDT Prison Goals Mobility/Bed Mobility LTG PT Grid Goal #1 Activity : Supine to sit Assist : Independent, modified Date to Meet : 11/10/2019 EDT Goal Status : Not met LESVIA WADE PT - 10/30/2019 15:26 EDT Transfer LTG Grid Goal #1 Destination : Chair, with arms Assist : Independent, modified Equipment : Walker, front wheel Date to Meet : 11/10/2019 EDT Goal Status : Not met LESVIA WADE PT - 10/30/2019 15:26 EDT Ambulation LTG Grid Goal #1 Device : Walker, front wheel Distance : 400' Assist : Independent, modified Date to Meet : 11/10/2019 EDT Goal Status : Not met LESVIA WADE, PT - 10/30/2019 15:26 EDT Stairs LTG Grid Goal #1 Device : None Number of Steps : 8 Handrail(s) : One handrail Assist : Independent, modified Date to Meet : 11/10/2019 EDT Goal Status : Not met LESVIA WADE, PT - 10/30/2019 15:26 EDT Electronically signed by [facility], [facility] Conversion Forestry Extension Specialist Cerner at 09/12/2022 10:50 AM CDT documented in this encounter Plan of Treatment Not on file documented as of this encounter Visit Diagnoses Not on filedocumented in this encounter Care Teams Senior Architect Relationship Specialty Start Date End Date Jennifer Harp, DRIER ATTENDANT [address] [place] [address] PCP - General Family Medicine 12/18/22 documented as of this encounter
--- OUTSIDE RECORDS SUMMARY | 2025-02-21 11:43 | XMS_ITS | Encounter Summary ---
Author Organization [employer] ([place], [place], [place], [place]) Address [address] [place] [address] Care Team Providers Care Weapons Officer Name Role Phone HarpJennifer robles Kwesi BASSETT Primary Care Provider [phone] Encounter Details Date Type Department Care Team (Late st Contact Info) Description 10/30/2019 Transcribed Document [facility] [place] [facility] [place] [address] ProviderHarsh MD [address] [place] [address] Social History Tobacco Use Types Packs/Day Years Used Date Smoking Tobacco: Never Assessed Sex and Gender Information Value Date Recorded Sex Assigned at Male 11/21/2021 4:44 PM CDT Legal Sex Male 4:44 PM CDT Gender Identity Male 11/21/2021 4:44 PM CDT Sexual Orientation Not on file documented as of this encounter Miscellaneous Notes * Cerner Conversion Note - Harsh ProviderMD - 10/30/2019 6:00 AM CDT Pain Assessment Entered On: 10/30/2019 6:32 EDT Performed On: 10/30/2019 6:32 EDT by Kenroy Heller Rn Intervention Information: acetaminophen Performed by Kenroy Heller Rn on 10/30/2019 05:32:00 EDT acetaminophen,650mg Oral Pain Assessment Pain Scale Goal : 4 Kenroy Heller Rn - 10/30/2019 6:32 EDT documented in this encounter Plan of Treatment Not on file documented as of this encounter Visit Diagnoses Not on filedocumented in this encounter Care Teams Weapons Officer Relationship Specialty Start Date End Date Jennifer Harp, PRODUCTION WELDING SUPERVISOR [address] [place] [address] PCP - General Family Medicine 12/18/22 documented as of this encounter
--- OUTSIDE RECORDS SUMMARY | 2025-02-21 11:43 | XMS_ITS | Encounter Summary ---
Author Organization [facility] ([place], [place], [place], [place]) Address [address] [place] [address] Care Team Providers Care Carton Marker Machine Name Role Phone Cayla Harp APRN Primary Care Provider [phone] Encounter Details Date Type Department Care Team (Late st Contact Info) Description 10/30/2019 Transcribed Document [facility] Family Medicine [facility] [place] [address] ProviderHarsh MD [address] [place] [id number] Social History Tobacco Use Types Packs/Day Years Used Date Smoking Tobacco: Never Assessed Sex and Gender Information Value Date Recorded Sex Assigned at Male 11/21/2021 4:44 PM CDT Legal Sex Male 4:44 PM CDT Gender Identity Male 11/21/2021 4:44 PM CDT Sexual Orientation Not on file documented as of this encounter Miscellaneous Notes * Cerner Conversion Note - Harsh ProviderMD - 10/30/2019 12:[address] [facility] [place] [address] MICHELLE VILLAFUERTE :1945 Visit Time:10/26/2019 Your Visit Summary Your Care Team Admitting Physician - TANIA BEE MD-SNU Attending Physician - TANIA BEE MD-SNU Primary Care Physician - CAYLA HARP NP-QUIN Referring Physician - JEANNIE, BÁRBARA Your Diagnosis Lumbar spinal stenosis Spondylolisthesis, lumbar region, Spondylolisthesis, lumbar region, Spondylolisthesis, lumbar region Discharge Vitals Temperature 36.7 ??C Heart Rate (Monitored) 66 Respiratory Rate 17 Blood Pressure 101/49 What to do next Instructions From Your Care Team Please refer to included discharge instructions for lumbar surgery Follow-Up Appointments Follow Up with TANIA BEE When 11/26/2019 10:30 AM EDT Comments xrays to be done at [facility] location at 10:30, then to office for 11:[address] Bee Where: [facility]. [address] [place] [address]- Jumio (1) Follow Up with TANIA BEE When 11/09/2019 10:00 AM EDT Comments Staple removal in 2 weeks Where: [address] [place] [address]- Jumio (1) Medications What How Much When Instructions Next Dose acetaminophen-oxyCODONE (Percocet 7.5/ 325 oral tablet) 1 Tablet(s) Oral Four Times A Day as needed for for pain may have this at 2:30 today if needed cyclobenzaprine (cyclobenzaprine 10 mg oral tablet) 1 Tablet(s) Oral Three Times A Day as needed for as needed for spasm anytime psyllium (Metamucil) 1.7 Gram(s) Oral Every Day one heaping tablespoon dissolve in 8 oz of fluid tomorrow morning alfuzosin 10 Milligram(s) Oral Every Day tomorrow morning aspirin (Mila Low Dose) 81 Milligram(s) Oral Every Day Resume on 11/01 carvedilol 25 Milligram(s) Oral Two Times A Day this evening clopidogrel (Plavix) 75 Milligram(s) Oral Every Day Resume on 11/01 difluprednate ophthalmic (Durezol) 2 Drop(s) Eye Left Every Day tomorrow morning multivitamin 1 Tablet(s) Oral Every Day tomorrow morning ocular lubricant (Refresh Optive) 1 Drop(s) Eye Right Every Day tomorrow morning omeprazole 40 Milligram(s) Oral Every Day tomorrow morning sertraline 25 Milligram(s) Oral Every Day tomorrow morning triamcinolone nasal (Nasacort Allergy 24HR) 1 [place](s) Nasal Every Day tomorrow morning Take your medications faithfully. Do NOT skip medication. Do NOT stop taking medications without the direction of a physician. Carry a list of your medications with you at all times, and take this medication list with you to your first follow up visit. Report any side effects. Avoid herbal remedies unless discussed with your physician. As part of your treatment plan, your physician may have prescribed a limited course of a controlled substance. This medication may be given to help people with moderate or severe pain or for other medical conditions, but there are risks involved with treatment. Common side effects may include nausea, constipation, drowsiness, sweating, itching, dry mouth, and rash. More serious side effects may include cognitive and motor impairment, like problems with thinking, concentrating, alertness, and movement (e.g. slowed reflexes), and driving and operating heavy machinery can be dangerous. It is important for you to talk to your physician if you have these side effects or questions. These controlled substances can produce physical dependence and be habit-forming if taken for an extended period of time, which means that the body has gotten used to them and may experience withdrawal symptoms if they are abruptly stopped. Withdrawal symptoms can include runny nose, sweating, goose bumps, diarrhea, abdominal cramping, rapid heartbeat, difficulty sleeping, and nervousness. Please dispose of unused and medications per your retail pharmacy guidance. Allergies penicillin (Unsure) Immunizations This Visit No Immunizations Found Education Materials acetaminophen and oxycodone (a SEET a MIN oh fen and OX i KOE done) Endocet 10/325, Endocet 2.5/325, Endocet 5/325, Endocet 7.5/325, Nalocet, Percocet, Primlev What is the most important information I should know about acetaminophen and oxycodone? MISUSE OF OPIOID MEDICINE CAN CAUSE ADDICTION, OVERDOSE, OR . Keep the medication in a place where others cannot get to it. An overdose of acetaminophen can damage your liver or cause . Call your doctor at once if you have pain in your upper stomach, loss of appetite, dark urine, or jaundice (yellowing of your skin or eyes). Taking opioid medicine during may cause life-threatening withdrawal symptoms in the . Fatal side effects can occur if you use opioid medicine with alcohol, or with other drugs that cause drowsiness or slow your breathing. Stop taking this medicine and call your doctor right away if you have skin redness or a rash that spreads and causes blistering and peeling. What is acetaminophen and oxycodone? Acetaminophen and oxycodone is a combination medicine used to relieve moderate to severe pain. Acetaminophen and oxycodone may also be used for purposes not listed in this medication guide. What should I discuss with my healthcare provider before taking acetaminophen and oxycodone? You should not use this medicine if you are allergic to acetaminophen or oxycodone, or if you have: ?? severe asthma or breathing problems; or ?? a blockage in your stomach or intestines. Tell your doctor if you have ever had: ?? breathing problems, sleep apnea; ?? liver disease; ?? a drug or alcohol addiction; ?? kidney disease; ?? a head injury or seizures; ?? urination problems; or ?? problems with your thyroid, pancreas, or gallbladder. If you use opioid medicine while you are , your baby could become dependent on the drug. This can cause life-threatening withdrawal symptoms in the baby after it is born. Babies born dependent on opioids may need medical treatment for several weeks. Do not breastfeed. This medicine can pass into breast milk and cause drowsiness, breathing problems, or in a nursing baby. How should I take acetaminophen and oxycodone? Follow all directions on your prescription label. Never take this medicine in larger amounts, or for longer than prescribed. An overdose can damage your liver or cause . Tell your doctor if you feel an increased urge to use more of this medicine. Never share this medicine with another person, especially someone with a history of drug abuse or addiction. MISUSE CAN CAUSE ADDICTION, OVERDOSE, OR . Keep the medicine in a place where others cannot get to it. Selling or giving away acetaminophen and oxycodone is against the law. Measure liquid medicine carefully. Use the dosing syringe provided, or use a medicine dose-measuring device (not a kitchen spoon). If you need surgery or medical tests, tell the doctor ahead of time that you are using this medicine. You should not stop using this medicine suddenly. Follow your doctor's instructions about tapering your dose. Store at room temperature away from moisture and heat. Keep track of your medicine. You should be aware if anyone is using it improperly or without a prescription. Do not keep leftover opioid medication. Just one dose can cause in someone using this medicine accidentally or improperly. Ask your pharmacist where to locate a drug take-back disposal program. If there is no take-back program, flush the unused medicine down the toilet. What happens if I miss a dose? Since this medicine is used for pain, you are not likely to miss a dose. Skip any missed dose if it is almost time for your next dose. Do not use two doses at one time. What happens if I overdose? Seek emergency medical attention or call the Poison Help line at . An overdose of acetaminophen and oxycodone can be fatal. The first signs of an acetaminophen overdose include loss of appetite, nausea, vomiting, stomach pain, sweating, and confusion or weakness. Later symptoms may include pain in your upper stomach, dark urine, and yellowing of your skin or the whites of your eyes. Overdose can also cause severe muscle weakness, pinpoint pupils, very slow breathing, extreme drowsiness, or coma. What should I avoid while taking acetaminophen and oxycodone? Avoid driving or operating machinery until you know how this medicine will affect you. Dizziness or drowsiness can cause falls, accidents, or severe injuries. Do not drink alcohol. Dangerous side effects or could occur. Ask a doctor or pharmacist before using any other medicine that may contain acetaminophen (sometimes abbreviated as APAP). Taking certain medications together can lead to a fatal overdose. What are the possible side effects of acetaminophen and oxycodone? Get emergency medical help if you have signs of an allergic reaction: hives; difficulty breathing; swelling of your face, lips, tongue, or throat. Opioid medicine can slow or stop your breathing, and may occur. A person caring for you should seek emergency medical attention if you have slow breathing with long pauses, blue colored lips, or if you are hard to wake up. In rare cases, acetaminophen may cause a severe skin reaction that can be fatal. This could occur even if you have taken acetaminophen in the past and had no reaction. Stop taking this medicine and call your doctor right away if you have skin redness or a rash that spreads and causes blistering and peeling. Call your doctor at once if you have: ?? noisy breathing, sighing, shallow breathing, breathing that stops during sleep; ?? a light-headed feeling, like you might pass out; ?? weakness, tiredness, fever, unusual bruising or bleeding; ?? confusion, unusual thoughts or behavior; ?? problems with urination; ?? liver problems--nausea, upper stomach pain, tiredness, loss of appetite, dark urine, milton-colored stools, jaundice (yellowing of the skin or eyes); or ?? low cortisol levels-- nausea, vomiting, loss of appetite, dizziness, worsening tiredness or weakness. Seek medical attention right away if you have symptoms of serotonin syndrome, such as: agitation, hallucinations, fever, sweating, shivering, fast heart rate, muscle stiffness, twitching, loss of coordination, nausea, vomiting, or diarrhea. Serious side effects may be more likely in older adults and those who are overweight, malnourished, or debilitated. Long-term use of opioid medication may affect fertility (ability to have children) in men or women. It is not known whether opioid effects on fertility are permanent. Common side effects include: ?? dizziness, drowsiness, feeling tired; ?? feelings of extreme happiness or sadness; ?? nausea, vomiting, stomach pain; ?? constipation; or ?? headache. This is not a complete list of side effects and others may occur. Call your doctor for medical advice about side effects. You may report side effects to FDA at 9-574-EKP-1348. What other drugs will affect acetaminophen and oxycodone? You may have breathing problems or withdrawal symptoms if you start or stop taking certain other medicines. Tell your doctor if you also use an antibiotic, antifungal medication, heart or blood pressure medication, seizure medication, or medicine to treat HIV or hepatitis C. Opioid medication can interact with many other drugs and cause dangerous side effects or . Be sure your doctor knows if you also use: ?? cold or allergy medicines, bronchodilator asthma/COPD medication, or a diuretic ('water pill'); ?? medicines for motion sickness, irritable bowel syndrome, or overactive bladder; ?? other narcotic medications--opioid pain medicine or prescription cough medicine; ?? a sedative like Valium--diazepam, alprazolam, lorazepam, Xanax, Klonopin, Versed, and others; ?? drugs that make you sleepy or slow your breathing--a sleeping pill, muscle relaxer, medicine to treat mood disorders or mental illness; ?? drugs that affect serotonin levels in your body--a stimulant, or medicine for depression, Parkinson's disease, migraine headaches, serious infections, or nausea and vomiting. This list is not complete. Other drugs may affect acetaminophen and oxycodone, including prescription and [id number] medicines, vitamins, and herbal products. Not all possible interactions are listed here. Where can I get more information? Your doctor or pharmacist can provide more information about acetaminophen and oxycodone. Remember, keep this and all other medicines out of the reach of children, never share your medicines with others, and use this medication only for the indication prescribed. Every effort has been made to ensure that the information provided by [employer]. ('[employer]') is accurate, up-to-date, and complete, but no guarantee is made to that effect. Drug information contained herein may be time sensitive. [employer] information has been compiled for use by healthcare practitioners and consumers in the [place] and therefore [employer] does not warrant that uses outside of the [place] are appropriate, unless specifically indicated otherwise. [employer]'s drug information does not endorse drugs, diagnose patients or recommend therapy. [employer] drug information is an informational resource designed to assist licensed healthcare practitioners in caring for their patients and/or to serve consumers viewing this service as a supplement to, and not a substitute for, the expertise, skill, knowledge and judgment of healthcare practitioners. The absence of a warning for a given drug or drug combination in no way should be construed to indicate that the drug or drug combination is safe, effective or appropriate for any given patient. [employer] does not assume any responsibility for any aspect of healthcare administered with the aid of information [employer] provides. The information contained herein is not intended to cover all possible uses, directions, precautions, warnings, drug interactions, allergic reactions, or adverse effects. If you have questions about the drugs you are taking, check with your doctor, nurse or pharmacist. Copyright 5318-8174 [employer]. Version: 20.. Revision Date: 06/17/2019. cyclobenzaprine (yonathan dumont) Amrix, Comfort Pac with Cyclobenzaprine, Fexmid What is the most important information I should know about cyclobenzaprine? You should not use cyclobenzaprine if you have a thyroid disorder, heart block, congestive heart failure, a heart rhythm disorder, or you have recently had a heart attack. Do not use cyclobenzaprine if you have taken an MAO inhibitor in the past 14 days, such as isocarboxazid, linezolid, phenelzine, rasagiline, selegiline, or tranylcypromine. What is cyclobenzaprine? Cyclobenzaprine is a muscle relaxant. It works by blocking nerve impulses (or pain sensations) that are sent to your brain. Cyclobenzaprine is used together with rest and physical therapy to relieve muscle spasms caused by painful conditions such as an injury. Cyclobenzaprine may also be used for purposes not listed in this medication guide. What should I discuss with my healthcare provider before taking cyclobenzaprine? You should not use cyclobenzaprine if you are allergic to it, or if you have: ?? a thyroid disorder; ?? heart block, heart rhythm disorder, congestive heart failure; or ?? if you have recently had a heart attack. Cyclobenzaprine is not approved for use by anyone younger than 15 years old. Do not use cyclobenzaprine if you have taken an MAO inhibitor in the past 14 days. A dangerous drug interaction could occur. MAO inhibitors include isocarboxazid, linezolid, phenelzine, rasagiline, selegiline, and tranylcypromine. Some medicines can interact with cyclobenzaprine and cause a serious condition called serotonin syndrome. Be sure your doctor knows if you also take stimulant medicine, opioid medicine, herbal products, or medicine for depression, mental illness, Parkinson's disease, migraine headaches, serious infections, or prevention of nausea and vomiting. Ask your doctor before making any changes in how or when you take your medications. Tell your doctor if you have ever had: ?? liver disease; ?? glaucoma; ?? enlarged prostate; or ?? problems with urination. It is not known whether this medicine will harm an unborn baby. Tell your doctor if you are or plan to become . It may not be safe to breast-feed while using this medicine. Ask your doctor about any risk. Older adults may be more sensitive to the effects of this medicine. How should I take cyclobenzaprine? Follow all directions on your prescription label and read all medication guides or instruction sheets. Your doctor may occasionally change your dose. Use the medicine exactly as directed. Cyclobenzaprine is usually taken once daily for only 2 or 3 weeks. Follow your doctor's dosing instructions very carefully. Swallow the capsule whole and do not crush, chew, break, or open it. Take the medicine at the same time each day. Call your doctor if your symptoms do not improve after 3 weeks, or if they get worse. Store at room temperature away from moisture, heat, and light. What happens if I miss a dose? Take the medicine as soon as you can, but skip the missed dose if it is almost time for your next dose. Do not take two doses at one time. What happens if I overdose? Seek emergency medical attention or call the Poison Help line at . An overdose of cyclobenzaprine can be fatal. Overdose symptoms may include severe drowsiness, vomiting, fast heartbeats, tremors, agitation, or hallucinations. What should I avoid while taking cyclobenzaprine? Avoid driving or hazardous activity until you know how this medicine will affect you. Your reactions could be impaired. Avoid drinking alcohol. Dangerous side effects could occur. What are the possible side effects of cyclobenzaprine? Get emergency medical help if you have signs of an allergic reaction: hives; difficult breathing; swelling of your face, lips, tongue, or throat. Stop using cyclobenzaprine and call your doctor at once if you have: ?? fast or irregular heartbeats; ?? chest pain or pressure, pain spreading to your jaw or shoulder; or ?? sudden numbness or weakness (especially on one side of the body), slurred speech, balance problems. Seek medical attention right away if you have symptoms of serotonin syndrome, such as: agitation, hallucinations, fever, sweating, shivering, fast heart rate, muscle stiffness, twitching, loss of coordination, nausea, vomiting, or diarrhea. Serious side effects may be more likely in older adults. Common side effects may include: ?? drowsiness, tiredness; ?? headache, dizziness; ?? dry mouth; or ?? upset stomach, nausea, constipation. This is not a complete list of side effects and others may occur. Call your doctor for medical advice about side effects. You may report side effects to FDA at 3-388-MNY-7646. What other drugs will affect cyclobenzaprine? Using cyclobenzaprine with other drugs that make you drowsy can worsen this effect. Ask your doctor before using opioid medication, a sleeping pill, a muscle relaxer, or medicine for anxiety or seizures. Tell your doctor about all your other medicines, especially: ?? bupropion (Zyban, for smoking cessation); ?? meperidine; ?? tramadol; ?? verapamil; ?? cold or allergy medicine that contains an antihistamine (Benadryl and others); ?? medicine to treat Parkinson's disease; ?? medicine to treat excess stomach acid, stomach ulcer, motion sickness, or irritable bowel syndrome; ?? medicine to treat overactive bladder; or ?? bronchodilator asthma medication. This list is not complete. Other drugs may affect cyclobenzaprine, including prescription and [id number] medicines, vitamins, and herbal products. Not all possible drug interactions are listed here. Where can I get more information? Your pharmacist can provide more information about cyclobenzaprine. Remember, keep this and all other medicines out of the reach of children, never share your medicines with others, and use this medication only for the indication prescribed. Every effort has been made to ensure that the information provided by [employer]. ('[employer]') is accurate, up-to-date, and complete, but no guarantee is made to that effect. Drug information contained herein may be time sensitive. [employer] information has been compiled for use by healthcare practitioners and consumers in the [place] and therefore [employer] does not warrant that uses outside of the [place] are appropriate, unless specifically indicated otherwise. [facility] drug information does not endorse drugs, diagnose patients or recommend therapy. [employer] [facility] drug information is an informational resource designed to assist licensed healthcare practitioners in caring for their patients and/or to serve consumers viewing this service as a supplement to, and not a substitute for, the expertise, skill, knowledge and judgment of healthcare practitioners. The absence of a warning for a given drug or drug combination in no way should be construed to indicate that the drug or drug combination is safe, effective or appropriate for any given patient. [employer] does not assume any responsibility for any aspect of healthcare administered with the aid of information [facility] provides. The information contained herein is not intended to cover all possible uses, directions, precautions, warnings, drug interactions, allergic reactions, or adverse effects. If you have questions about the drugs you are taking, check with your doctor, nurse or pharmacist. Copyright 9765-3407 [employer]. Version: 5.01. Revision Date: 02/19/2018. Emergency Awareness and Preventative Care STROKE is an EMERGENCY Every Minute Counts Act FAST and Check for these signs: FACE Does the face look uneven? ARM Does one arm drift down? SPEECH Does their speech sound strange? TIME Call at any sign of stroke Stroke Risk Factors Atrial Fibrillation (irregular heartbeat) Diabetes Family history of stroke Heart Disease Heavy alcohol use High Blood Pressure High Cholesterol Physical inactivity and obesity Smoking Cigarette Smoking The facts are clear, cigarette smoking will shorten your life. Smoking can cause many illnesses along the way. As a healthcare provider, we recommend that you stop smoking. Assistance with quitting is available by contacting 0-688-FKHOAdapt TechnologiesNOW. This is a free resource providing counseling, support, and referral. Or you may contact your personal physician. National Suicide Prevention Lifeline: The National Suicide Prevention Lifeline is a national network of local crisis centers that provides free and confidential emotional support to people in suicidal crisis or emotional distress 24 hours a day, 7 days a week. Don't Wait! Stop a Heart Attack Before it Starts What is a heart attack? A heart attack is damage or to a part of the heart from severely decreased or lack of blood flow to the heart. Over time, arteries can become narrow from the buildup of fat and cholesterol, which is called plaque. The plaque can rupture causing a blood clot to form. When the blood clot forms, the artery can become severely narrowed or completely blocked, causing a heart attack. Heart attack is the leading cause of in the [place]. 85% of muscle damage occurs within the first 2 hours. Delay in the recognition of heart attack symptoms increases the chances of . Know the early symptoms of a heart attack: Nausea Feeling of fullness in chest Jaw Pain Pain that travels down one or both arms Fatigue/being tired Anxiety Back Pain Chest pressure, squeezing, or discomfort Shortness of breath Sweating, or a cold sweat Feeling of impending doom There are unusual signs of a heart attack, too! Women, the elderly, and diabetics may present with atypical symptoms: Fainting/dizziness Weakness Confusion Risk Factors for a Heart Attack Some heart disease risk factors, such as age and family history, cannot be changed. Others, like smoking and lack of exercise, can be changed. Smoking High Cholesterol High Blood Pressure Family History Obesity Age Gender (Males are at higher risk) Lack of Exercise Diabetes Diet Stress Excessive Alcohol Intake If you or someone you know is experiencing the signs and symptoms of a heart attack, DON???T DELAY. Call immediately and seek help. If someone collapses, perform CPR! Do not attempt to drive if you are having symptoms of heart attack. Hands-Only CPR Why Hands-Only CPR? Hands-Only CPR has been shown to be as effective as conventional CPR for cardiac arrests that occur outside of a hospital. Survival depends on immediately receiving CPR from someone nearby. How do you perform Hands-Only CPR? There are two easy steps: Call if you see a teen or adult collapse Push hard and fast in the center of the chest at a beat of 100 beats per minute. Save a life! 4 WAYS TO GET AHEAD OF SEPSIS SEPSIS is a MEDICAL EMERGENCY. Time matters! Infections put you and your family at risk for a life-threatening condition called sepsis. Sepsis is the body's extreme response to an infection. It is life-threatening, and without timely treatment, sepsis can rapidly lead to tissue damage, organ failure, and . Sepsis happens when an infection you already have-in your skin, lungs, urinary tract or somewhere else-triggers a chain reaction throughout your body. 1 PREVENT INFECTIONS Take good care of chronic conditions. Talk to your doctor about getting the recommended vaccines. 2 PRACTICE GOOD HYGIENE Wash your hands frequently. Keep cuts or open sores clean and covered until they are healed. 3 KNOW THE SYMPTOMS Confusion or disorientation Shortness of breath High heart rate Fever, shivering, or feeling very cold Extreme pain or discomfort Clammy or sweaty skin 4 ACT FAST Get medical care IMMEDIATELY if you suspect sepsis or if you have an infection that is not getting better or is getting worse. To learn more about sepsis and how to prevent infections, visit www.cdc.gov/sepsis. Test Results Laboratory or Other Results This Visit (last charted value for your 10/26/2019 visit) Hematology 10/30/2019 2:55 AM WBC: 11.0 K/uL -- Normal range between ( 3.6 and 9.5 ) RBC: 3.32 Million/uL -- Normal range between ( 4.20 and 5.70 ) Hct: 31.1 % -- Normal range between ( 40.1 and 51.0 ) Hgb: 10.7 g/dL -- Normal range between ( 13.5 and 17.3 ) Platelet Count: 140 K/uL -- Normal range between ( 163 and 369 ) MCH: 32.2 pg -- Normal range between ( 25.6 and 32.2 ) MCHC: 34.4 Gram/dL -- Normal range between ( 32.2 and 36.5 ) MCV: 93.7 fL -- Normal range between ( 79.0 and 94.8 ) Slide Review: No Eos %: 2.0 % -- Normal range between ( 0.0 and 7.0 ) [place] #: 1.08 K/uL -- Normal range between ( 0.16 and 1.00 ) Eos #: 0.22 x10(3)/uL -- Normal range between ( 0.00 and 0.80 ) [place] %: 9.8 % -- Normal range between ( 3.0 and 9.0 ) Baso %: 0.3 % -- Normal range between ( 0.0 and 1.5 ) Baso #: 0.03 x10(3)/uL -- Normal range between ( 0.00 and 0.20 ) RDW: 12.2 % -- Normal range between ( 11.7 and 14.9 ) Neut %: 75.5 % -- Normal range between ( 34.0 and 71.0 ) Neut #: 8.28 K/uL -- Normal range between ( 1.56 and 6.13 ) Lymph %: 11.9 % -- Normal range between ( 19.3 and 53.1 ) Lymph #: 1.31 x10(3)/uL -- Normal range between ( 1.00 and 3.90 ) MPV: 9.9 fL -- Normal range between ( 9.4 and 12.4 ) IG#: 0.06 x10(3)/uL -- Normal range between ( 0.00 and 0.05 ) IG%: 0.50 % -- Normal range between ( 0.00 and 0.60 ) Urinalysis 10/22/2019 3:12 PM Urine Nitrite: Negative Urine Leukocyte Esterase: Negative Urine Appearance: Clear Urine Glucose Dipstick: Negative Urine Blood Dipstick: Trace Urine Type: U CleanCatch Urine Urobilinogen Dipstick: 0.2 EU/dL Urine Protein Dipstick: Negative Urine Color: Yellow Urine Ketones Dipstick: Negative Urine pH Dipstick: 5.5 -- Normal range between ( 6.0 and 8.0 ) Urine Bilirubin Dipstick: Negative Urine Specific [place]: 1.014 -- Normal range between ( 1.005 and 1.030 ) Microbiology 10/22/2019 10:45 AM Novel Coronavirus 2019: Negative Blood Bank 10/26/2019 7:27 AM ABO/Rh (ECHO): A POS Antibody Screen: Negative ABSC 10/22/2019 3:12 PM ABO/Rh Repeat: A POS General Chemistry 10/30/2019 2:55 AM Creatinine Level: 1.50 mg/dL -- Normal range between ( 0.70 and 1.30 ) Sodium Level: 135 mmol/L -- Normal range between ( 136 and 146 ) Potassium Level: 4.4 mmol/L -- Normal range between ( 3.5 and 5.1 ) Chloride Level: 104 mmol/L -- Normal range between ( 102 and 112 ) Carbon Dioxide Level: 24 mmol/L -- Normal range between ( 21 and 32 ) Anion Gap: 11 -- Normal range between ( 9 and 20 ) Bun/Creatinine: 22.7 -- Normal range between ( 8.0 and 20.0 ) Calcium Level: 7.8 mg/dL -- Normal range between ( 8.4 and 10.1 ) eGFR : 55 mL/min/1.73m2 eGFR NonAfrican: 46 mL/min/1.73m2 Glucose Level: 138 mg/dL -- Normal range between ( 74 and 106 ) Blood Urea Nitrogen: 34 mg/dL -- Normal range between ( 7 and 22 ) 10/29/2019 5:31 AM Glucose POC2: 127 mg/dL -- Normal range between ( 70 and 110 ) Device Comment 1: Device Comment 1 Diagnostic Radiology 10/26/2019 12:[address] in OR: CR CT in OR Patient Name:MICHELLE VILLAFUERTE I have received and understand this information and was given the opportunity to ask questions. Patient/Boiler Engineer Name: Patient/Boiler Engineer Signature: Relationship to Patient: Clinician/Hospital Boiler Engineer Signature: Date: documented in this encounter Plan of Treatment Not on file documented as of this encounter Visit Diagnoses Not on filedocumented in this encounter Care Teams Carton Marker Machine Relationship Specialty Start Date End Date Cayla Harp, ORTHOPEDIC SPECIALIST [address] [place] [address] PCP - General Family Medicine 12/18/22 documented as of this encounter
--- OUTSIDE RECORDS SUMMARY | 2025-02-21 11:43 | XMS_ITS | Encounter Summary ---
Author Organization [employer] ([place], [place], [place], [place]) Address [address] [place] [address] Care Team Providers Care Opto Mechanical Technician Name Role Phone Jennifer Harp DANYELLE Primary Care Provider [phone] Encounter Details Date Type Department Care Team (Late st Contact Info) Description 10/30/2019 Transcribed Document [facility] Radiology [address] [place] [address] Nerissa Sharma MD [address] [place] [address] Social History Tobacco Use Types Packs/Day Years Used Date Smoking Tobacco: Never Assessed Sex and Gender Information Value Date Recorded Sex Assigned at Male 11/21/2021 4:44 PM CDT Legal Sex Male 4:44 PM CDT Gender Identity Male 11/21/2021 4:44 PM CDT Sexual Orientation Not on file documented as of this encounter Miscellaneous Notes * Cerner Conversion Note - Nerissa Sharma MD - 10/30/2019 10:58 AM EDT Patient: JAMIR VILLAFUERTE Age: 74 years Sex: Male : 1945 Associated Diagnoses: None Author: EL LOMBARDO PA-QUIN 10/30/2019 cc: medical management s/p posterior lumbar fusion per Dr. Locke S: Pt is doing ok. No f'/c/s. No n/v/d. (+) gas, (-) BM. No CP, SOA, palpitations. No cough or sputum. Urinating well. +post op pain. Using incentive spirometer. HPI: Patient is a 74 yo male admitted to [facility] per Dr. Locke for a posterior lumbar fusion. Preoperatively patient was found to have advanced spondylolisthesis of the lumbar spine and elected surgical intervention after failing conservative treatment. Patient is followed perioperatively while hospitalized for medical management. Initial visit seen on floor - Denies prior stroke or seizure. Denies [place], CHF or cardiac arrhythmia. Has had to [...] (1) Active Reaction penicillin Unsure Home Medications (13) Active alfuzosin 10 mg, Oral, Daily Mila Low Dose 81 mg, Oral, Daily carvedilol 25 mg, Oral, BID cyclobenzaprine 10 mg oral tablet 10 mg = 1 Tab, PRN, Oral, TID Durezol 2 Drop, Eye Left, Daily Metamucil , Oral, Daily multivitamin 1 Tab, Oral, Daily Nasacort Allergy 24HR 1 [place], Nasal, Daily omeprazole 40 mg, Oral, Daily Percocet 7.5/325 oral tablet 1 Tab, PRN, Oral, QID Plavix 75 mg, Oral, Daily Refresh Optive [...] (OCT 28 21:08) 98 (OCT 29 02:13) GEN: Alert, awake, NAD; resting in bed. just finished walking with therapy. CV: S1S2, no murmur. No LE edema Resp: CTAB, NL; no wheezes or rhonchi. Abd: Soft, NT, ND +BS Skin: no rashes on inspection and palpation. Ext: No LE edema. No joint edema, erythema. Neuro: A&O x 3 Data: Blood Gases (Current Encounter/Past 24 Hours) No Blood Gas Results Found (Past 24 Hours) Electrolytes(BMP) Results (Current Encounter/Past 24 Hours) Sodium Level 135 mmol/L LOW 10/30/2019 03:21 Potassium Level 4.4 mmol/L 10/30/2019 03:21 Chloride Level 104 mmol/L 10/30/2019 03:21 Carbon Dioxide Level 24 mmol/L 10/30/2019 03:21 Anion Gap 11 10/30/2019 03:21 Blood Urea Nitrogen 34 mg/dL [place] 10/30/2019 03:21 Glucose Level 138 mg/dL [place] 10/30/2019 03:21 Calcium Level 7.8 mg/dL LOW 10/30/2019 03:21 Creatinine Level 1.50 mg/dL [place] 10/30/2019 03:21 Cardiac Markers (Current Encounter/Past 24 Hours) No Cardiac Marker Results Found (Past 24 Hours) CBC Results (Current Encounter/Past 24 Hours) WBC 11.0 K/uL [place] 10/30/2019 03:01 Hct 31.1 % LOW 10/30/2019 03:01 Hgb 10.7 g/dL LOW 10/30/2019 03:01 Platelet Count 140 K/uL LOW 10/30/2019 03:01 CMP Results (Current Encounter/Past 24 Hours) Creatinine Level 1.50 mg/dL [place] 10/30/2019 03:21 Bun/Creatinine 22.7 [place] 10/30/2019 03:21 eGFR 55 mL/min/1.73m2 LOW 10/30/2019 03:21 eGFR NonAfrican 46 mL/min/1.73m2 LOW 10/30/2019 03:21 Sodium Level 135 mmol/L LOW 10/30/2019 03:21 Potassium Level 4.4 mmol/L 10/30/2019 03:21 Chloride Level 104 mmol/L 10/30/2019 03:21 Carbon Dioxide Level 24 mmol/L 10/30/2019 03:21 Anion Gap 11 10/30/2019 03:21 Blood Urea Nitrogen 34 mg/dL [place] 10/30/2019 03:21 Glucose Level 138 mg/dL [place] 10/30/2019 03:21 Calcium Level 7.8 mg/dL LOW 10/30/2019 03:21 Coagulation Results (Current Encounter/Past 24 Hours) No Coagulation Results Found (Past 24 Hours) Creatinine Clearance (Current Encounter/Past 24 Hours) Creatinine Level 1.50 mg/dL [place] 10/30/2019 03:21 Bun/Creatinine 22.7 [place] 10/30/2019 03:21 Estimated Creatinine Clearance 40.39 mL/Min 10/30/2019 03:21 No Radiology Results Found Preop: Reviewed CBC, BMP, UA Creatinine 1.5 EKG with normal sinus rhythm, heart rate of 61 Impression: advanced spondylolisthesis Lspine; -Status post posterior lumbar fusion per Dr. Locke hypotension - due to decreased volume. Almost 1L from ALICIA drain. bolused with IVF and symptoms improved. 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 His abd is soft, excellent bowel sounds and passing flatus. awaiting rehab placement pending precert; hoping for [facility]; denied for acute. Approved for [facility]; no bed available until 10/30 . Pt gets fatigue easily with therapy and I think that he would benefit from inpt rehab. He is worried about going home and falling and not being able to help. bipap at [facility] OK to discharge from IM standpoint pain meds per surgery bowel regimen at home IS at home Assessment and treatment plan made in conjunction with Humberto Sharma MD documented in this encounter Plan of Treatment Not on file documented as of this encounter Visit Diagnoses Not on filedocumented in this encounter Care Teams Opto Mechanical Technician Relationship Specialty Start Date End Date Jennifer Harp, BALLISTICS EXPERT [address] [place] [address] PCP - General Family Medicine 12/18/22 documented as of this encounter
--- OUTSIDE RECORDS SUMMARY | 2025-02-21 11:43 | XMS_ITS | Encounter Summary ---
Author Organization [employer] ([place], [place], [place], [place]) Address [address] [place] [address] Care Team Providers Care Concrete Vault Maker Name Role Phone HarpJennifer robles Kwesi BASSETT Primary Care Provider [phone] Encounter Details Date Type Department Care Team (Late st Contact Info) Description 10/29/2019 Transcribed Document [facility] [place] Family Medicine [facility] [place] [address] ProviderHarsh MD [address] [place] [address] Social History Tobacco Use Types Packs/Day Years Used Date Smoking Tobacco: Never Assessed Sex and Gender Information Value Date Recorded Sex Assigned at Male 11/21/2021 4:44 PM CDT Legal Sex Male 4:44 PM CDT Gender Identity Male 11/21/2021 4:44 PM CDT Sexual Orientation Not on file documented as of this encounter Miscellaneous Notes * Cerner Conversion Note - Harsh ProviderMD - 10/29/2019 2:00 PM CDT Pain Assessment Entered On: 10/29/2019 16:16 EDT Performed On: 10/29/2019 15:44 EDT by Tara Steinberg, RN Intervention Information: acetaminophen Performed by Tara Steinberg RN on 10/29/2019 14:44:00 EDT acetaminophen,650mg Oral Pain Assessment Pain Assessment : Follow-up assessment Pain Scale Goal : 4 Pain Scale Used : 0-10 Scale Tara Steinberg RN - 10/29/2019 16:15 EDT Pain Scale Intensity : 3 Tara Steinberg RN - 10/29/2019 16:15 EDT Image 4 - Images currently included in the form version of this document have not been included in the text rendition version of the form. documented in this encounter Plan of Treatment Not on file documented as of this encounter Visit Diagnoses Not on filedocumented in this encounter Care Teams Concrete Vault Maker Relationship Specialty Start Date End Date Jennifer Harp, WINDOWS APPLICATION ADMINISTRATOR [address] [place] [address] PCP - General Family Medicine 12/18/22 documented as of this encounter
--- OUTSIDE RECORDS SUMMARY | 2025-02-21 11:43 | XMS_ITS | Encounter Summary ---
Author Organization [employer] ([place], [place], [place], [place]) Address [address] [place] [address] Care Team Providers Care Monotyper Name Role Phone KatiuskaJennifer Kwesi BASSETT Primary Care Provider [phone] Encounter Details Date Type Department Care Team (Late st Contact Info) Description 10/30/2019 Transcribed Document [facility] [place] Family Medicine [place] [address] ProviderHarsh MD [address] [place] [address] Social History Tobacco Use Types Packs/Day Years Used Date Smoking Tobacco: Never Assessed Sex and Gender Information Value Date Recorded Sex Assigned at Male 11/21/2021 4:44 PM CDT Legal Sex Male 4:44 PM CDT Gender Identity Male 11/21/2021 4:44 PM CDT Sexual Orientation Not on file documented as of this encounter Miscellaneous Notes * Cerner Conversion Note - Harsh ProviderMD - 10/30/2019 12:32 PM CDT Final Discharge Planning Entered On: 10/30/2019 12:34 EDT Performed On: 10/30/2019 12:32 EDT by TY CAMPBELL RN-Specialty Manufacturing Supervisor Final Discharge Planning Discharge Arrangements : Patient Post-Acute Information Patient Name: JAMIR VILLAFUERTE Gender: Male : [birth year] Age: 74 Years No Post-Acute Placement(s) Listed No Post-Acute Service(s) Listed No Curaspan Referral(s) Listed Patient Offered Choice/Affiliations Explained : Yes Designation of Choice Signed : Yes Important Medicare Message Reviewed With : Patient Important Medicare Message Reviewed D/T : 10/30/2019 9:00 EDT Transportation Needs : Family/Friend Follow Up Appointment Scheduled : Yes Is Patient High/Moderate Readmission Risk? : No Patient/Family Notified of Plan : Yes Support Person/Pt Rep Notified of Plan : Yes Is Patient Ready for Discharge? : Yes Physician Notified Patient is Ready for Discharge? : Yes Discharge To Care Management : SNF with Medicare Certification-03 TY CAMPBELL RN-Specialty Manufacturing Supervisor - 10/30/2019 12:32 EDT Final Narrative Note Final Narrative Note : Heydi informs pt has a bed on [facility] today. Pt's spouse or DIL will transport. Pt chose [facility] for after rehab, informed Luz Eelna, she will follow. No other CM needs identified. TY CAMPBELL RN-Specialty Manufacturing Supervisor - 10/30/2019 12:32 EDT documented in this encounter Plan of Treatment Not on file documented as of this encounter Visit Diagnoses Not on filedocumented in this encounter Care Teams Monotyper Relationship Specialty Start Date End Date Jennifer Harp, INSTRUCTIONAL TECHNOLOGY FACILITATOR [address] [place] [address] PCP - General Family Medicine 12/18/22 documented as of this encounter
--- OUTSIDE RECORDS SUMMARY | 2025-02-21 11:43 | XMS_ITS | Encounter Summary ---
Author Organization [employer] ([place], [place], [place], [place]) Address [address] [place] [address] Care Team Providers Care Lawn Care Worker Name Role Phone KatiuskaJennifer Kwesi BASSETT Primary Care Provider [phone] Encounter Details Date Type Department Care Team (Late st Contact Info) Description 10/30/2019 Transcribed Document [facility] [place] [facility] [place] [address] ProviderHarsh MD [address] [place] [address] Social History Tobacco Use Types Packs/Day Years Used Date Smoking Tobacco: Never Assessed Sex and Gender Information Value Date Recorded Sex Assigned at Male 11/21/2021 4:44 PM CDT Legal Sex Male 4:44 PM CDT Gender Identity Male 11/21/2021 4:44 PM CDT Sexual Orientation Not on file documented as of this encounter Miscellaneous Notes * Cerner Conversion Note - Harsh ProviderMD - 10/30/2019 2:00 AM CDT Pain Assessment Entered On: 10/30/2019 1:54 EDT Performed On: 10/30/2019 2:44 EDT by Kenroy Heller Rn Intervention Information: acetaminophen Performed by Kenroy Heller Rn on 10/30/2019 01:44:00 EDT acetaminophen,650mg Oral Pain Assessment Pain Scale Goal : 4 Kenroy Heller Rn - 10/30/2019 1:54 EDT documented in this encounter Plan of Treatment Not on file documented as of this encounter Visit Diagnoses Not on filedocumented in this encounter Care Teams Lawn Care Worker Relationship Specialty Start Date End Date Jennifer Harp, LACQUER DIPPING MACHINE OPERATOR [address] [place] [address] PCP - General Family Medicine 12/18/22 documented as of this encounter
--- OUTSIDE RECORDS SUMMARY | 2025-02-21 11:43 | XMS_ITS | Encounter Summary ---
Author Organization [employer] ([place], [place], [place], [place]) Address [address] [place] [address] Care Team Providers Care Care Partner Name Role Phone HarpJennifer robles Kwesi BASSETT Primary Care Provider [phone] Encounter Details Date Type Department Care Team (Late st Contact Info) Description 10/30/2019 Transcribed Document [facility] [place] [facility] [place] [address] ProviderHarsh MD [address] [place] [address] Social History Tobacco Use Types Packs/Day [...] Harsh ProviderMD - 10/30/2019 12:32 PM CDT On Going Discharge Planning Entered On: 10/30/2019 12:32 EDT Performed On: 10/30/2019 12:32 EDT by TY CAMPBELL RN-Humidifier OperatorRetirement Officer Progress Note Discharge Arrangements : Patient Post-Acute Information Patient Name: JAMIR VILLAFUERTE Gender: Male : [birth year] Age: 74 Years No Post-Acute Placement(s) Listed No Post-Acute Service(s) Listed No Curaspan Referral(s) Listed Discharge Options Discussed with Patient : Acute rehabilitation, Short term rehabilitation Barriers to Discharge Identified : Clinical Condition of Patient Barriers to Discharge Unresolved : All resolved Designation of Choice Signed : Yes Patient Offered Choice/Affiliations Explained : Yes List/Info Provided Pt/Fam/Support Person : Home health, correction facilities Were Referrals Sent to Post Acute Providers : Yes Physician Agreeable to Move Forward with D/C Plan? : Yes TY CAMPBELL RN-Humidifier Operator - 10/30/2019 12:32 EDT Electronically signed by [facility] Conversion Legislative Assistant Cerner at 09/12/2022 11:12 AM CDT documented in this encounter Plan of Treatment Not on file documented as of this encounter Visit Diagnoses Not on filedocumented in this encounter Care Teams Care Partner Relationship Specialty Start Date End Date Jennifer Harp, PAINT GRINDER [address] [place] [address] PCP - General Family Medicine 12/18/22 documented as of this encounter
--- OUTSIDE RECORDS SUMMARY | 2025-02-21 11:43 | XMS_ITS | Encounter Summary ---
Author Organization [employer] ([place], [place], [place], [place]) Address [address] [place] [address] Care Team Providers Care Bed Worker Name Role Phone HarpJennifer robles Kwesi BASSETT Primary Care Provider [phone] Encounter Details Date Type Department Care Team (Late st Contact Info) Description 10/30/2019 Transcribed Document [facility] [place] Family Medicine [facility] [place] [address] ProviderHarsh MD [address] [place] [address] Social History Tobacco Use Types Packs/Day Years Used Date Smoking Tobacco: Never Assessed Sex and Gender Information Value Date Recorded Sex Assigned at Male 11/21/2021 4:44 PM CDT Legal Sex Male 4:44 PM CDT Gender Identity Male 11/21/2021 4:44 PM CDT Sexual Orientation Not on file documented as of this encounter Miscellaneous Notes * Cerner Conversion Note - Harsh ProviderMD - 10/30/2019 12:30 PM CDT Stroke/Warfarin Instructions Entered On: 10/30/2019 12:30 EDT Performed On: 10/30/2019 12:30 EDT by MICHELLE BARRIENTOS RN Stroke/Warfarin Instructions Stroke/TIA Discharge Ins : N/A Warfarin Discharge Ins : N/A MICHELLE BARRIENTOS RN - 10/30/2019 12:30 EDT documented in this encounter Plan of Treatment Not on file documented as of this encounter Visit Diagnoses Not on filedocumented in this encounter Care Teams Bed Worker Relationship Specialty Start Date End Date Jennifer Harp, ELECTRICAL LINE WORKER [address] [place] [address] PCP - General Family Medicine 12/18/22 documented as of this encounter
--- OUTSIDE RECORDS SUMMARY | 2025-02-21 11:43 | XMS_ITS | Encounter Summary ---
Author Organization [employer] ([place], [place], [place], [place]) Address [address] [place] [address] Care Team Providers Care Trimming Assembler Name Role Phone Jennifer Harp REPAIR ARMATURE WINDER HELPER Primary Care Provider [phone] Encounter Details Date Type Department Care Team (Late st Contact Info) Description 10/30/2019 Transcribed Document [facility] [place] [place] [address] ProviderHarsh MD [address] [place] [address] Social History Tobacco Use Types Packs/Day Years Used Date Smoking Tobacco: Never Assessed Sex and Gender Information Value Date Recorded Sex Assigned at Male 11/21/2021 4:44 PM CDT Legal Sex Male 4:44 PM CDT Gender Identity Male 11/21/2021 4:44 PM CDT Sexual Orientation Not on file documented as of this encounter Miscellaneous Notes * Cerner Conversion Note - Historical ProviderMD - 10/30/2019 12:30 PM CDT Patient Education Materials Follows: documented in this encounter Plan of Treatment Not on file documented as of this encounter Visit Diagnoses Not on filedocumented in this encounter Care Teams Trimming Assembler Relationship Specialty Start Date End Date Jennifer Harp, REPAIR ARMATURE WINDER HELPER [address] [place] [address] PCP - General Family Medicine 12/18/22 documented as of this encounter
--- OUTSIDE RECORDS SUMMARY | 2025-02-21 11:43 | XMS_ITS | Encounter Summary ---
Author Organization [employer] ([place], [place], [place], [place]) Address [address] [place] [address] Care Team Providers Care Model Maker Name Role Phone HarpJennifer robles Kwesi BASSETT Primary Care Provider [phone] Encounter Details Date Type Department Care Team (Late st Contact Info) Description 10/29/2019 Transcribed Document [facility] [place] [address] ProviderHarsh MD [address] [place] [id number] Social History Tobacco Use Types Packs/Day Years Used Date Smoking Tobacco: Never Assessed Sex and Gender Information Value Date Recorded Sex Assigned at Male 11/21/2021 4:44 PM CDT Legal Sex Male 4:44 PM CDT Gender Identity Male 11/21/2021 4:44 PM CDT Sexual Orientation Not on file documented as of this encounter Miscellaneous Notes * Cerner Conversion Note - Harsh ProviderMD - 10/29/2019 2:26 PM CDT On Going Discharge Planning Entered On: 10/29/2019 14:28 EDT Performed On: 10/29/2019 14:26 EDT by TY CAMPBELL RN-Fuel Conversion TechnicianChurch Supervisor Progress Note Discharge Arrangements : Patient Post-Acute Information Patient Name: JAMIR VILLAFUERTE Gender: Male : 45 Age: 74 Years No Post-Acute Placement(s) Listed No Post-Acute Service(s) Listed No [place] Referral(s) Listed Discharge Options Discussed with Patient : Acute rehabilitation, Short term rehabilitation Barriers to Discharge Identified : Clinical Condition of Patient Barriers to Discharge Unresolved : Clinical Condition of Patient Does the Patient have a Floor to SNF Benefit? : No Is the Patient Meeting Medical Necessity : Yes TY CAMPBELL RN-Fuel Conversion Technician - 10/29/2019 14:26 EDT Narrative Progress Note Narrative Progress Note : Precert denied for acute, but approved for subacute. No SRU bed until Monday 10/30, but pt is on list if a bed comes available tomorrow 10/29. [id number]. Pt not feeling well today as he did not take any pain medicine last night. Bedside RN Tara is trying to get his pain managed. Pt is not ready for dc yet. D/W pt, spouse, Jeffrey, Kendrick, and BSN Tara. CM will continue to follow. Historical Progress Note : Precert still pending for [facility]. Per Dr. Locke-pt will stay tonite as his drain output is still high. CM will continue to follow. TY CAMPBELL RN-Fuel Conversion Technician - 10/28/19 10:49:32 TY CAMPBELL RN-Fuel Conversion Technician - 10/29/2019 14:26 EDT Electronically signed by Carlos Sahni Conversion [employer] Farm Worker Cerner at 09/12/2022 10:51 AM CDT documented in this encounter Plan of Treatment Not on file documented as of this encounter Visit Diagnoses Not on filedocumented in this encounter Care Teams Model Maker Relationship Specialty Start Date End Date Jennifer Harp, BLISS PRESS OPERATOR [address] [place] [address] PCP - General Family Medicine 12/18/22 documented as of this encounter
--- OUTSIDE RECORDS SUMMARY | 2025-02-21 11:43 | XMS_ITS | Encounter Summary ---
Author Organization [employer] ([place], [place], [place], [place]) Address [address] [place] [address] Care Team Providers Care It Audit Manager Name Role Phone HarpJennifer robles Kwesi BASSETT Primary Care Provider [phone] Encounter Details Date Type Department Care Team (Late st Contact Info) Description 10/29/2019 Transcribed Document [facility] [place] Family [place] [facility] [place] [address] ProviderHarsh MD [address] [place] [id number] Social History Tobacco Use Types Packs/Day Years Used Date Smoking Tobacco: Never Assessed Sex and Gender Information Value Date Recorded Sex Assigned at Male 11/21/2021 4:44 PM CDT Legal Sex Male 4:44 PM CDT Gender Identity Male 11/21/2021 4:44 PM CDT Sexual Orientation Not on file documented as of this encounter Miscellaneous Notes * Cerner Conversion Note - Harsh ProviderMD - 10/29/2019 10:37 AM CDT Discharge Follow Up Phone Call Entered On: 10/29/2019 10:40 EDT Performed On: 10/29/2019 10:37 EDT by BRADY RIDDLE wilderness guide Follow Up Phone Call Medical/Surgical Follow Up : Open Discharge Disposition : No Documentation Available Phone Number : [phone] Contact Relationship to Patient : Self Emergency Room Visit Since DC : No Did the Nurse Give/Explain Discharge Instructions? : Yes Discharge Instructions Understood? : Yes Provider Follow-Up Post Discharge : Discharge Follow Up [facility] - Within 1 month [facility] - Within 2 weeks Home Health Care Set Up After Discharge : Yes Previously Documented Group Home Patient Stated Goal : No Patient Stated Goal Additional Questions Concerns Addressed During Dc Phone Call : Yes Additional Questions/Concerns Comments : Follow up post [facility]. No concerns at this time.Patient going to [facility] for additonal rehab services. BRADY RIDDLE RN - 10/29/2019 10:37 EDT Medical/Surgical Follow Up Adequate Pain Control After Visit : Yes Surgical Dressing Clean/Dry/Intact : Yes Symptoms of Fever : No Mobility Progressing or Maintained as Expected : Yes BRADY RIDDLE RN - 10/29/2019 10:37 EDT documented in this encounter Plan of Treatment Not on file documented as of this encounter Visit Diagnoses Not on filedocumented in this encounter Care Teams It Audit Manager Relationship Specialty Start Date End Date Jennifer Harp, TYPESETTERS PRINTER [address] [place] [address] PCP - General Family Medicine 12/18/22 documented as of this encounter
--- NOTE | 2025-02-21 11:51 | ECG_ITS ---
APPROVED REPORT Exam: Resting ECG HR:84 bpm ECG Measurements Heart Rate 84 AXES TN 185 P 38 QRSd 88 QRS -32 QT 326 T 3 QTc 367 Conclusion SINUS RHYTHM LEFT AXIS DEVIATION [QRS AXIS < -30] LOW QRS VOLTAGE IN PRECORDIAL LEADS [QRS DEFLECTION < 1.0 mV IN CHEST LEADS] PATTERN CONSISTENT WITH PULMONARY DISEASE MINIMAL ST DEPRESSION [0.025+ mV ST DEPRESSION] ABNORMAL ECG UNCONFIRMED REPORT Electronically signed by : MINISTERIO ROACH, 02/22/2025 23:03:54
--- NOTE | 2025-02-21 11:53 | PC.NURSE ---
patient brought into treatment room 9. during trage of patient, patient BP noted to be 75/44. patient stated that its been in the 60's at home . multiple cuffs tried, as well as different sites with no real improvement. current BP 109/57 in the right arm, 86/48 in the left with same size cuff. MD Ruby notified.
--- NOTE | 2025-02-21 12:05 | PC.NURSE ---
Dr Ruby at bedside
--- NOTE | 2025-02-21 12:09 | XR_ITS ---
PROCEDURE INFORMATION: Exam: XR Chest Exam date and time: 02/21/2025 12:22 PM Age: 79 years old Clinical indication: Dyspnea TECHNIQUE: Imaging protocol: Radiologic exam of the chest. Views: 1 view. COMPARISON: CT ANGIO CHEST PE PROTOCOL 10/09/2024 11:27 AM FINDINGS: Lungs: Unremarkable. No consolidation. Pleural spaces: Unremarkable. No pleural effusion. No pneumothorax. Heart/Mediastinum: Cardiomegaly Bones/joints: Unremarkable. IMPRESSION: No acute findings.
--- NOTE | 2025-02-21 12:11 | HMH.EDGENADL ---
Discharge Plan Disposition Patient Disposition: Admitted Referrals Follow up/Referrals: Jennifer Harp [Primary Care Provider, Medical] - See instructions Clinical Impressions Clinical Impression: Severe sepsis, Myocardial injury, Acute hypotension Print Language Print Language: Hebrew Discharge ED Provider: Phuc Ruby General Adult HPI General Chief complaint: Weakness Stated complaint: fever, low bp, chills Time Seen by Provider: 02/21/25 11:58 Mode of Arrival: Ambulatory Source of Information: Patient and Spouse Description of Symptoms (Recalled from ER Triage Doc. by RN): patient presents to the ED for multiple complaints. Patient stated his arm went numb at home about 4:30 am and stopped around 9 am, patient also stated his top number on his blood pressure has been reading at home . Patient stated he is also incontenent which is not normal for him. History of Present Illness HPI narrative: Patient is a 79-year-old male presenting today with what he describes as severe shaking and chills which woke him up around 4:30 AM. Patient gave triage nursing different complaints but denies any arm complaints or chest or back discomfort to me at all. States that he only had severe shaking chills and myalgias and was hurting all over. Did not take his temperature at the time. Denies any other fevers or other focal symptoms such as cough etc. aside from having some episodes of urinary incontinence over the last 24 hours which she states is worse than normal. Related Data Allergies Allergy/AdvReac Type Severity Reaction Status Date / Time No Known Allergies Allergy Verified 05/28/19 20:53 [facility] Disclaimer: The information contained in this section may have been updated after the patient was seen, as this information can be updated by other users. Social History Smoking Status: Never smoker alcohol intake: never current occupational status: employed Travel in the last 8 weeks?: None Have you lived/traveled outside US in past 30 days?: No Contact w/someone who lives/traveled outside US past 30 days?: No Exposure to someone with infectious disease in past 14 days?: No Do you have a fever (greater than 100.4 F or 38 C)?: No Have you tested positive for COVID-19?: No Exposed to someone with COVID-19 in past 14 days?: No Do you have a sore throat?: No Do you have a cough?: No Do you have any weakness?: No Do you have any diarrhea?: No Are you experiencing any unusual bleeding?: No Do you have any muscle aches/pain?: No Do you have any abdominal pain?: No Are you experiencing loss of taste or smell?: No Other Medical History Have you received the Flu Vaccine for this season: Yes Have you received the Pneumonia Vaccine: Yes ROS Obtained: Yes All systems reviewed & no additional complaints except as documented Physical Exam General General appearance: alert Respiratory Respiratory exam: Present normal lung sounds bilaterally and other (Patient is tachypneic breathing in the mid 20s to upper 20s on my exam) Cardiovascular Cardiovascular exam: Present regular rate, normal rhythm and other (Pulses equal bilateral upper extremities) Abdominal Exam Abdominal exam: Present soft; Absent distention or tenderness Neurological Exam Neurological exam: Present alert and oriented X3 Medical Decision Making Medical Records Screening: Per USPSTF and CDC recommendations, given the prevalence of disease in our region, it is our hospital?s policy to screen for HIV and viral Hepatitis for all patients aged 18 and over and those with ongoing risk factors. Perico Inquiry Pt receiving controlled substance: No Vital Signs: 02/21/25 11:33 02/21/25 11:39 02/21/25 11:42 Temperature 98.1 F Temperature Source Oral Pulse Rate 86 88 Pulse Rate [Right Radial] 90 Respiratory Rate 25 H 20 23 Blood Pressure 98/53 L 72/44 L Blood Pressure [Right Arm] 98/53 L Blood Pressure Mean 70 53 Blood Pressure Mean [Right Arm] 68 Blood Pressure Source [Right Arm] Automatic Cuff Blood Pressure Position [Right Arm] Sitting 02 Sat by Pulse Oximetry 95 94 L 95 Oxygen Delivery Method Room Air Room Air Room Air 02/21/25 11:43 02/21/25 11:47 02/21/25 11:49 Temperature Temperature Source Pulse Rate 81 86 85 Pulse Rate [Right Radial] Respiratory Rate 24 22 26 H Blood Pressure 77/45 L 76/44 L 104/54 L Blood Pressure [Right Arm] Blood Pressure Mean 55 50 60 Blood Pressure Mean [Right Arm] Blood Pressure Source [Right Arm] Blood Pressure Position [Right Arm] 02 Sat by Pulse Oximetry 96 94 L 95 Oxygen Delivery Method Room Air Room Air Room Air 02/21/25 11:52 02/21/25 11:55 02/21/25 12:00 Temperature Temperature Source Pulse Rate 81 83 80 Pulse Rate [Right Radial] Respiratory Rate 20 22 21 Blood Pressure 86/48 L 109/57 L 99/53 L Blood Pressure [Right Arm] Blood Pressure Mean 55 65 66 Blood Pressure Mean [Right Arm] Blood Pressure Source [Right Arm] Blood Pressure Position [Right Arm] 02 Sat by Pulse Oximetry 95 95 95 Oxygen Delivery Method Room Air Room Air Room Air 02/21/25 12:05 Temperature Temperature Source Pulse Rate 82 Pulse Rate [Right Radial] Respiratory Rate 24 Blood Pressure 105/63 L Blood Pressure [Right Arm] Blood Pressure Mean 72 Blood Pressure Mean [Right Arm] Blood Pressure Source [Right Arm] Blood Pressure Position [Right Arm] 02 Sat by Pulse Oximetry 96 Oxygen Delivery Method Room Air Lab Data Lab results reviewed: Yes I reviewed the patient's lab results. Lab Results 02/21/25 11:35: SARS-CoV-2 (PCR) Not detected, Influenza A Untype (PCR) Not detected, Influenza Type B (PCR) Not detected 02/21/25 11:43: WBC 19.2 H, RBC 3.95 L, Hgb 13.1 L, Hct 37.8 L, MCV 95.7 H, MCH 33.2 H, MCHC 34.7, RDW 12.6, Plt Count 158, MPV 10.5 H, Neut % (Auto) 93.1 H, Lymph % (Auto) 2.6 L, [place] % (Auto) 3.3, Eos % (Auto) 0.1, Baso % (Auto) 0.2, Neut # (Auto) 17.9 H, Lymph # (Auto) 0.5 L, [place] # (Auto) 0.6, Eos # (Auto) 0.0, Baso # (Auto) 0.0, Total Counted 100, Neutrophils % (Manual) 89 H, Lymphocytes % (Manual) 5 L, Monocytes % (Manual) 6, Platelet Estimate Normal, RBC Morphology Normal, Sodium 139, Potassium 4.0, Chloride 109 H, Carbon Dioxide 18 L, Anion Gap 16.0 H, BUN 30 H, Creatinine 1.80 H, Estimated Creat Clear 33, Estimated GFR 37 L, Est GFR ( Amer) 44 L, Glucose 150 H, Lactate 2.4 H, Calcium 8.9, Total Bilirubin 0.7, AST 32, ALT 24, Alkaline Phosphatase 46, Troponin I 0.04 H, Total Protein 6.7, Albumin 3.6, Globulin 3.1, Albumin/Globulin Ratio 1.2 02/21/25 12:18: Urine Color Yellow, Urine Appearance Clear, Urine pH 5.5, Ur Specific [place] 1.015, Urine Protein 1+ A, Urine Glucose (UA) Negative, Urine Ketones Trace, Urine Blood Trace-i, Urine Nitrate Negative, Urine Bilirubin Negative, Urine Urobilinogen 0.2, Ur Leukocyte Esterase Negative, Urine RBC Occasional, Urine WBC Occasional, Ur Squamous Epith Cells Occasional, Urine Bacteria Trace 02/21/25 11:43 02/21/25 11:43 Orders (Tests/Meds): ED MEDICATIONS Generic Name Dose Route Start Last Admin Trade Name Freq PRN Reason Stop Dose Admin Acetaminophen 650 mg 02/21/25 12:54 Acetaminophen 325mg Tab PO 03/23/25 12:53 Q4HP PRN Fever or Mild Pain (1-3) Lactated Ringer's 1,000 mls @ 999 mls/hr 02/21/25 12:15 02/21/25 12:54 Lactated Ringer's 1000 Ml Bag IV 02/21/25 13:15 999 mls/hr .Q1H1M MAXIMILIAN Infusion Metronidazole 500 mg in 100 mls @ 100 mls/hr 02/21/25 12:26 02/21/25 12:53 Flagyl 500mg/100ml Ivpb IV 02/21/25 13:25 100 mls/hr ONCE ONE Administration Lactated Ringer's 2,120 mls @ 1,060 mls/hr 02/21/25 12:52 Lactated Ringer's 1000 Ml Bag 30 ml/kg infuse over 2 hr (2120 ml) 02/21/25 14:51 IV .Q2H ONE Vancomycin/PEG/NADA/Lysine/Water 1.75 gm in 350 mls @ 175 mls/hr 02/21/25 13:00 Vancomycin 1.75gm/350ml (Peg) Premix IV 02/21/25 14:59 ONCE ONE Morphine Sulfate 4 mg 02/21/25 12:55 Morphine 4mg/Ml Syringe IV 03/23/25 12:54 Q4HP PRN Severe Pain (7-10) Discontinued Medications Generic Name Dose Route Start Last Admin Trade Name Freq PRN Reason Stop Dose Admin Cefepime HCl 2 gm/ Sodium 100 mls @ 200 mls/hr 02/21/25 12:26 02/21/25 12:49 Chloride IV 02/21/25 12:55 200 mls/hr ONCE ONE Administration Miscellaneous 1 each 02/21/25 12:30 Vancomycin Consult Request NOTAPPLIC 03/23/25 12:29 CONSULT PHARMACY MAXIMILIAN ORDERS Category Date Time Status CXR --portable [XR chest portable] Stat Exams 02/21/25 12:09 Taken POCUS Point of Care (ER Only) Stat Exams 02/21/25 12:00 Ordered CBC w/Auto Diff [Complete Blood Count Auto Diff] Stat Lab 02/21/25 11:43 Completed CMP [Comprehensive Metabolic Panel] Stat Lab 02/21/25 11:43 Results Complete Blood Count Auto Diff AMLAB Lab 02/22/25 06:00 Ordered Comprehensive Metabolic Panel AMLAB Lab 02/22/25 06:00 Ordered Lactic Acid Stat Lab 02/21/25 11:43 Completed Magnesium AMLAB Lab 02/22/25 06:00 Ordered Rapid PCR Covid and Flu A/B Stat Lab 02/21/25 11:35 Completed TSH [Thyroid Stimulating Hormone] Stat Lab 02/21/25 11:43 Results Trop I [Troponin I] Stat Lab 02/21/25 11:43 Results Troponin I Q3H Lab 02/21/25 15:15 Ordered Troponin I Q3H Lab 02/21/25 18:15 Ordered UA [Urinalysis and Microscopic] Stat Lab 02/21/25 12:18 Completed Blood Culture Stat Micro 02/21/25 12:44 Ordered Tissue Perfus/Sepsis Re-Eval Sepsis Re-Evaluation Performed: Yes Date Performed: 02/21/25 Time Performed: 12:57 Medical Decision Narrative: Patient with above history and physical presenting today with shaking chills and myalgias that woke him up around 4 AM. He never took his temperature but he showed up blood pressure 70s over 40s with mild tachypnea. He also has a leukocytosis all this consistent with severe sepsis. Patient did not have persistent hypotension after fluid resuscitation and maps srini above 65 therefore will not diagnosis is septic shock. Broad-spectrum antibiotics including vancomycin and cefepime and Flagyl have been initiated. Urinalysis unremarkable patient does have a mildly elevated troponin consistent with myocardial injury associate with sepsis. Also was hypotensive thus endorgan damage will diagnose the patient with severe sepsis. Fluid bolus has been initiated and patient is doing well from that perspective. Lactate less than 4. Chest x-ray performed to person interpreted shows no evidence of acute coronary emergency. Patient will be admitted for continuation of IV fluids and antibiotics and further source evaluation. No definitive source noted but patient is presumptively bacteremic with his history. Procedures Miscellaneous Procedure Procedure Performed: Limited Mariee ultrasound Indication hypotension Cardiac ultrasound lung ultrasound FAST exam aortic exam are unremarkable without any definitive cause of hypotension identified. Findings normal Mariee exam Critical Care Critical Care Time Critical Care Time: Yes Attestation: On 02/21/25, the high probability of a clinically significant, sudden or life threatening deterioration of the following system(s) required my full and direct attention, intervention and personal management. The time I documented below is in addition to time spent performing reported procedures but includes the following listed in this critical care notation. Total Time Total Critical Care Time: 35
--- NOTE | 2025-02-21 12:13 | PC.NURSE ---
patient provided urinal at this time for attempt to collect urine sample. patient educated to ring call light when he provides sample.
[2025-02-21 12:15] LABS: Hematocrit 37.8 % (42.0-52.0); Hemoglobin 13.1 g/dL (14.1-18.0); Immature Granulocytes % 0.7 %; Mean Corpuscular HGB Conc 34.7 g/dL (31.8-35.4); Mean Corpuscular Hemoglobin 33.2 pg (27.0-31.2); Mean Corpuscular Volume 95.7 fl (80-94); Nucleated Red Blood Cells % 0 %; Platelet Count 158 K/mm3 (142-424); Red Blood Count 3.95 M/mm3 (4.60-6.20); Red Cell Distribution Width-SD 44.4 fL; White Blood Count 19.2 K/mm3 (4.8-10.8)
[2025-02-21 12:15] LABS: Coronavirus 19, PCR Not Detected (NotDetected); Influenza A, PCR Not Detected (NotDetected); Influenza B, PCR Not Detected (NotDetected)
[2025-02-21] MEDS: LACTATED RINGERS 1000ML 1,000 ML 999 ML IV (12:17)
[2025-02-21 12:22] LABS: Alanine Aminotransferase 24 U/L (12-78); Albumin Level 3.6 g/dl (3.5-5.0); Albumin/Globulin Ratio 1.2 (1.1-1.8); Alkaline Phosphatase 46 U/L (38-126); Anion Gap 16.0 mEq/L (5-15); Aspartate Amino Transferase 32 U/L (17-59); Bilirubin,Total 0.7 mg/dl (0.2-1.3); Blood Urea Nitrogen 30 mg/dl (9-20); Calcium 8.9 mg/dl (8.4-10.2); Carbon Dioxide 18 mmol/L (22.0-30.0); Chloride 109 mmol/L (98-107); Creatinine Clearance Estimated 33 mL/min (50-200); Creatinine,Serum 1.80 mg/dl (0.66-1.25); Estimated Glomerular Filt Rate 37 ml/min (>60); GFR (African American) 44 ML/MIN (>60); Globulin 3.1 g/dL (1.3-3.2); Glucose 150 mg/dl (74-100); Potassium 4.0 mmoL/L (3.5-5.1); Sodium 139 mmol/L (136-145); Total Protein,Serum 6.7 g/dl (6.3-8.2)
[2025-02-21 12:23] LABS: Bilirubin,Urine Negative (Negative); Color,Urine YELLOW (Yellow); Glucose,Urine (UA) Negative (Negative); Ketones,Urine TRACE (Negative); Leukocyte Esterase,Urine Negative (Negative); Microscopic, Urine URINE MICROSCOPIC (MICROSCOPIC); PH,Urine 5.5 (5.0-8.5); Protein,Urine 1+ (Negative); Specific Gravity, Urine 1.015 (1.005-1.030); Urobilinogen,Urine 0.2 EU/dl (0.2)
[2025-02-21 12:30] LABS: Bacteria,Urine Trace /lpf; RBC,Urine Occasional #/hpf (0-3); Squamous Epithelial Cell,Urine Occasional #/hpf (0-5); WBC,Urine Occasional #/hpf (0-3)
[2025-02-21 12:33] LABS: Troponin I 0.04 ng/ml (0.00-0.034)
[2025-02-21 12:36] LABS: RBC Morphology Normal; Total Cells Counted 100
[2025-02-21] MEDS: CEFEPIME HCL 2 GM in 0.9 % SODIUM CHLORIDE 100 ML IV ×2 (12:49→22:56)
[2025-02-21 12:52] LABS: Thyroid Stimulating Hormone 1.42 uIU/mL (0.465-4.68)
[2025-02-21] MEDS: METRONIDAZ/SOD CHL 500 MG/100 ML PIGGYBACK 100 MG IV ×2 (12:53→20:20)
--- NOTE | 2025-02-21 12:54 | PC.NURSE ---
HS notifed of the need for a bed to admit the pt to the hospitalist.
--- NOTE | 2025-02-21 12:58 | EXP.HP ---
History of Present Illness *Admission Date: 02/21/25 *Reason for visit:: Hypotension, chills *History of present illness: Mr. Villafuerte is a 79-year-old male with history of A-fib on chronic anticoagulation, history of cervical spine surgery earlier this year, who presented to the ER with complaints of chills and shaking along with hypotension this morning. States he woke up this morning with some incontinence, chills, low blood pressure and blurry vision. Came to the ER because of the severity of shaking and how poorly he felt. He denies cough, congestion, nausea, vomiting, chest pain, confusion, trauma, dysuria, diarrhea over the past week or 2. Essentially negative review of systems other than chills and blurry vision this morning with his low blood pressure. On workup in the ER, white count found to be 19.5. Patient was hypotensive with blood pressure 77/45. Concern for SIRS with unclear source of infection. Cultures obtained and initiated on empiric antibiotics along with fluid bolus. Seeing response with improvement in blood pressure after receiving 1 L IV fluids. Medicine consulted for admission and further management of SIRS and suspected infection. Patient's urinalysis was relatively unremarkable in the ER. Chest imaging did not show focal airspace disease. States has had some increased pain in his upper back after further questioning but is more soreness and a tightness that he thinks is associated with his previous surgeries to his upper back and neck. Does not report any warmth or lesions that he is aware of. Does report that he was hurting in general this morning with his chills and shaking. Visions better after improvement in his blood pressure. [facility] Disclaimer: The information contained in this section may have been updated after the patient was seen, as this information can be updated by other users. Medical History (Updated 02/21/25 @ 15:42 by Pete Cervantes MD) A-fib Back pain with history of spinal surgery History of left heart catheterization Surgical History Hx of heart artery stent H/O neck surgery Social History Smoking Status: Never smoker alcohol intake: never current occupational status: employed Travel in the last 8 weeks?: None Have you lived/traveled outside [place] in past 30 days?: No Contact w/someone who lives/traveled outside US past 30 days?: No Exposure to someone with infectious disease in past 14 days?: No Do you have a fever (greater than 100.4 F or 38 C)?: No Have you tested positive for COVID-19?: No Exposed to someone with COVID-19 in past 14 days?: No Do you have a sore throat?: No Do you have a cough?: No Do you have any weakness?: No Do you have any diarrhea?: No Are you experiencing any unusual bleeding?: No Do you have any muscle aches/pain?: No Do you have any abdominal pain?: No Are you experiencing loss of taste or smell?: No Other Medical History Have you received the Flu Vaccine for this season: Yes Have you received the Pneumonia Vaccine: Yes Review of Systems Review of Systems Review of systems (narrative): 14 point review of systems performed, pertinent positives and negatives as per HPI Meds Home Medications and Allergies Home Medications ?Medication ?Instructions ?Recorded ?Confirmed ?Type alfuzosin 10 mg tablet,extended 10 mg PO DAILY 02/21/25 02/21/25 History release 24 hr apixaban 5 mg tablet (Eliquis) 5 mg PO BID 02/21/25 02/21/25 History losartan 25 mg tablet 25 mg PO DAILY 02/21/25 02/21/25 History metoprolol succinate 25 mg 25 mg PO DAILY 02/21/25 02/21/25 History tablet,extended release 24 hr omeprazole 40 mg capsule,delayed 40 mg PO DAILY 02/21/25 02/21/25 History release oxybutynin chloride 10 mg 10 mg PO DAILY 02/21/25 02/21/25 History tablet,extended release 24 hr rosuvastatin 10 mg tablet 10 mg PO DAILY 02/21/25 02/21/25 History sertraline 50 mg tablet 50 mg PO DAILY 02/21/25 02/21/25 History New Prescriptions to Start Prescriptions: Allergies Allergy/AdvReac Type Severity Reaction Status Date / Time No Known Allergies Allergy Verified 05/28/19 20:53 Exam Data for Last 24 hours Vital signs and Labs for Last 24 Hours: Temp Pulse Resp BP Pulse Ox O2 Del Method 98.1 F 82 24 105/63 L 96 Room Air 02/21/25 11:39 02/21/25 12:02/21/25 12:05 02/21/25 12:05 02/21/25 12:05 02/21/25 12:05 Laboratory Results - last 24 hr 02/21/25 11:35: SARS-CoV-2 (PCR) Not detected, Influenza A Untype (PCR) Not detected, Influenza Type B (PCR) Not detected 02/21/25 11:43: WBC 19.2 H, RBC 3.95 L, Hgb 13.1 L, Hct 37.8 L, MCV 95.7 H, MCH 33.2 H, MCHC 34.7, RDW 12.6, Plt Count 158, MPV 10.5 H, Neut % (Auto) 93.1 H, Lymph % (Auto) 2.6 L, [place] % (Auto) 3.3, Eos % (Auto) 0.1, Baso % (Auto) 0.2, Neut # (Auto) 17.9 H, Lymph # (Auto) 0.5 L, [place] # (Auto) 0.6, Eos # (Auto) 0.0, Baso # (Auto) 0.0, Total Counted 100, Neutrophils % (Manual) 89 H, Lymphocytes % (Manual) 5 L, Monocytes % (Manual) 6, Platelet Estimate Normal, RBC Morphology Normal, Sodium 139, Potassium 4.0, Chloride 109 H, Carbon Dioxide 18 L, Anion Gap 16.0 H, BUN 30 H, Creatinine 1.80 H, Estimated Creat Clear 33, Estimated GFR 37 L, Est GFR ( Amer) 44 L, Glucose 150 H, Lactate 2.4 H, Calcium 8.9, Total Bilirubin 0.7, AST 32, ALT 24, Alkaline Phosphatase 46, Troponin I 0.04 H, Total Protein 6.7, Albumin 3.6, Globulin 3.1, Albumin/Globulin Ratio 1.2 02/21/25 12:18: Urine Color Yellow, Urine Appearance Clear, Urine pH 5.5, Ur Specific [place] 1.015, Urine Protein 1+ A, Urine Glucose (UA) Negative, Urine Ketones Trace, Urine Blood Trace-i, Urine Nitrate Negative, Urine Bilirubin Negative, Urine Urobilinogen 0.2, Ur Leukocyte Esterase Negative, Urine RBC Occasional, Urine WBC Occasional, Ur Squamous Epith Cells Occasional, Urine Bacteria Trace I & O for Last 24 hours: Intake & Output 09/02/19/25 02/20/25 02/21/25 23:59 23:59 23:59 23:59 Intake Total 616.05 / 616.05 Balance 616.05 / 616.05 Weight 79.379 kg Constitutional Constitutional: mild distress, average body habitus, chronically ill appearing and cooperative *Routine HEENT Exam Head: Present normocephalic Eye: Present EOMI and PERRL ENT: Present mucous membranes moist *Routine Neck Exam Neck: Present supple; Absent lymphadenopathy Comments: Some ofWell-healed midline scar neck over nuchal region. No nuchal rigidity or warmth *Routine Respiratory Exam Respiratory: Present CTA bilaterally; Absent rhonchi, wheezes or crackles *Routine Cardiovascular Exam Cardiovascular: Present RRR *Routine Abdominal Exam Abdominal: Present soft and normoactive bowel sounds; Absent tenderness *Routine Rectal Exam Rectal:: deferred *Routine Genitalia Exam Genitalia:: deferred *Routine Extremities Exam Extremities: Absent cyanosis, clubbing or edema Routine Back/Spine/Pelvis Exam Comments: Mild tenderness to palpation in the upper trapezius bilaterally. Well-healed midline scars over lumbar region and over cervical region *Routine Skin Exam Skin: Present intact and warm; Absent erythema or rash *Routine Neurological Exam Neurological: Present alert, oriented X3 and moving all extremities; Absent altered mental status Assessment and Plan *Assessment and plan (1) Acute hypotension: Status: Acute Category: Medical Code(s): I95.9 - Hypotension, unspecified (2) SIRS (systemic inflammatory response syndrome): Status: Acute Category: Medical Code(s): R65.10 - Systemic inflammatory response syndrome (SIRS) of non-infectious origin without acute organ dysfunction (3) Leukocytosis: Status: Acute Category: Medical Code(s): D72.829 - Elevated white blood cell count, unspecified (4) A-fib: Status: Chronic Category: Medical Code(s): I48.91 - Unspecified atrial fibrillation (5) Chronic anticoagulation: Status: Chronic Category: Medical Code(s): Z79.01 - [facility] (current) use of anticoagulants Plan 79-year-old male who presents with symptoms of SIRS including leukocytosis and hypotension along with tachypnea with respiratory rate in the 20s while in the ER. Responding to IV fluids. White count elevated at 19 on arrival. Received empiric antibiotics. Discussed case with ER physician, request admission for further workup of patient's hypotension and SIRS symptoms. I agree patient needs admission and decided to admit for further care. Will continue cefepime, metronidazole, vancomycin. Blood and urine cultures pending. Will reevaluate need for imaging if patient shows focal symptoms. Anticipate admission for at least 2 midnights while we await cultures for at least 48 hours. Problems addressed as follows: SIRS Hypotension Leukocytosis - White count elevated 19.5. Hemoglobin 13.1. Kidney function slightly abnormal with creatinine 1.8, baseline appears to be 1.6. BUN elevated at 30. Electrolytes normal with potassium 4.0 and sodium 139. - Repeat CBC, CMP, magnesium ordered for the morning - Blood and urine cultures pending, urinalysis relatively bland - Chest x-ray per my review with no focal consolidation or airspace disease - Review of systems and exam does not point toward any specific area necessitating imaging or further workup at this time. - Continue Vancomycin 1.25 g every 24 hours, cefepime 2 g every 12 hours, and Flagyl 500 mg every 8 hours IV - Monitor kidney function for toxicity - Will attempt to obtain patient's records from [facility] and [facility] where he recently had imaging and stress testing within the past month. Due to hypotension will hold patient's alfuzosin, losartan, metoprolol. In the setting of SIRS, will hold his Crestor. Resume Zoloft for mood and oxybutynin for bladder dysfunction. Full code Hold home Eliquis, will continue therapeutically dosed Lovenox. Holding Eliquis in the setting the patient may need procedure to evaluate for infection and want to be able to hold anticoagulation in the short-term if necessary Regular diet
[2025-02-21] MEDS: LACTATED RINGERS 1000ML 2,120 ML 1060 ML IV (13:01)
[2025-02-21] MEDS: VANCOMYCIN/WATER FOR INJ (PEG) 1.75 GM/350 ML PIGGYBACK IV (13:27)
--- NOTE | 2025-02-21 13:32 | PC.NURSE ---
HS called for room number for patient. HS to call back with room number
--- NOTE | 2025-02-21 13:37 | PC.NURSE ---
report attempted- asked to call back
--- NOTE | 2025-02-21 13:39 | EXP.PHA.CONS ---
Pharmacy Consult Date: 02/21/25 Time: 13:39 Referring provider: DR. FELICIANO Reason for Consult:: VANCOMYCIN DOSING Allergies Allergy/AdvReac Type Severity Reaction Status Date / Time No Known Allergies Allergy Verified 05/28/19 20:53 New Prescriptions to Start Prescriptions: Height: 1.75 m Weight: 79.379 kg Laboratory Results:: Laboratory Results - last 24 hr 02/21/25 11:35: SARS-CoV-2 (PCR) Not detected, Influenza A Untype (PCR) Not detected, Influenza Type B (PCR) Not detected 02/21/25 11:43: WBC 19.2 H, RBC 3.95 L, Hgb 13.1 L, Hct 37.8 L, MCV 95.7 H, MCH 33.2 H, MCHC 34.7, RDW 12.6, Plt Count 158, MPV 10.5 H, Neut % (Auto) 93.1 H, Lymph % (Auto) 2.6 L, [place] % (Auto) 3.3, Eos % (Auto) 0.1, Baso % (Auto) 0.2, Neut # (Auto) 17.9 H, Lymph # (Auto) 0.5 L, [place] # (Auto) 0.6, Eos # (Auto) 0.0, Baso # (Auto) 0.0, Total Counted 100, Neutrophils % (Manual) 89 H, Lymphocytes % (Manual) 5 L, Monocytes % (Manual) 6, Platelet Estimate Normal, RBC Morphology Normal, Sodium 139, Potassium 4.0, Chloride 109 H, Carbon Dioxide 18 L, Anion Gap 16.0 H, BUN 30 H, Creatinine 1.80 H, Estimated Creat Clear 33, Estimated GFR 37 L, Est GFR ( Amer) 44 L, Glucose 150 H, Lactate 2.4 H, Calcium 8.9, Total Bilirubin 0.7, AST 32, ALT 24, Alkaline Phosphatase 46, Troponin I 0.04 H, Total Protein 6.7, Albumin 3.6, Globulin 3.1, Albumin/Globulin Ratio 1.2, TSH 1.42 02/21/25 12:18: Urine Color Yellow, Urine Appearance Clear, Urine pH 5.5, Ur Specific [place] 1.015, Urine Protein 1+ A, Urine Glucose (UA) Negative, Urine Ketones Trace, Urine Blood Trace-i, Urine Nitrate Negative, Urine Bilirubin Negative, Urine Urobilinogen 0.2, Ur Leukocyte Esterase Negative, Urine RBC Occasional, Urine WBC Occasional, Ur Squamous Epith Cells Occasional, Urine Bacteria Trace Assessment and Plan Assessment and plan all Dx Assessment and Plan for all problems:: Pharmacokinetic dosing service = Objective: Patient: Floor: Age: 79 yo Serum creatinine: 1.8 mg/dL Height: 69.0 Inches Weight (kg): 79.4 Assessment: IBW (kg): 70.70 Dosing wt(kg): 79.4 Estimated Creatinine clearance (ml/min): 33.3 CRCL method: Cockcroft and Gault using ibw(default). Drug selected: Vancomycin Loading dose (mg): 0 Vd (liters): 67.5 (factor used: 0.85 L/kg) René (hr-1): 0.032 Half life (hrs): 21.66 Recommended dose: 1250 mg Interval: 24 hrs Infusion time (hrs): 2.0 Predicted peak (mcg/mL): 33.5 Predicted trough (mcg/mL): 16.57 Total body weight is being used for vancomycin dosing. Recommendations: Give Vancomycin 1250 mg q 24 hrs with an expected Cpeak of 33.5 mcg/ml and an expected Ctrough of 16.57 mcg/ml ----Vanco only - ignore for aminoglycosides----- CLvanco= 2.16 L/hr AUC 0-24 /SHAHRAM Data: SHAHRAM 0.5 mcg/mL: AUC/SHAHRAM: 1157.4 SHAHRAM 1.0 mcg/mL: AUC/SHAHRAM: 578.7 --------- SHAHRAM 1.5 mcg/mL: AUC/SHAHRAM: 385.8 SHAHRAM 2.0 mcg/mL: AUC/SHAHRAM: 289.4
--- NOTE | 2025-02-21 13:52 | PC.NURSE ---
report called at 1350 to Rose Marie LOWERY
--- NOTE | 2025-02-21 14:02 | PC.NURSE ---
[facility] staff at bedside taking patient too Room 216 via ER stretcher.
--- NOTE | 2025-02-21 14:08 | PC.NURSE ---
arrived by stretcher from ED
[2025-02-21 15:45] LABS: Troponin I 0.12 ng/ml (0.00-0.034)
[2025-02-21 16:12] LABS: Reflex Lactic Add Lactic Reflex
[2025-02-21 17:54] LABS: Lactic Acid Follow Up (RFLX 1) 2.0 mmol/L (0.7-2.1)
[2025-02-21 18:06] LABS: Troponin I 0.15 ng/ml (0.00-0.034)
[2025-02-22] VITALS (7 sets, daily range): BP systolic 113–181; BP diastolic 63–78; PULSE 57–70; RESP 16–22; TEMP 36.5–36.6; O2SAT 95–98; BMI 26.9
[2025-02-22] MEDS: ACETAMINOPHEN 325MG TAB 650 MG PO (02:55)
--- NOTE | 2025-02-22 03:25 | PC.NURSE ---
Pt A&OX4 and has tolerated room air. He has received IV abx throughout the shift. He has remained NSR on tele. He did complain of a headache once this shift and was medicated per MAR. No other complaints at this time, call light within reach.
[2025-02-22] MEDS: METRONIDAZ/SOD CHL 500 MG/100 ML PIGGYBACK 100 MG IV ×2 (05:45→12:17)
[2025-02-22 06:35] LABS: Hematocrit 33.3 % (42.0-52.0); Immature Granulocytes % 1.3 %; Mean Corpuscular HGB Conc 32.4 g/dL (31.8-35.4); Mean Corpuscular Hemoglobin 31.9 pg (27.0-31.2); Mean Corpuscular Volume 98.2 fl (80-94); Nucleated Red Blood Cells % 0 %; Platelet Count 129 K/mm3 (142-424); Red Blood Count 3.39 M/mm3 (4.60-6.20); Red Cell Distribution Width-SD 47.1 fL; White Blood Count 15.6 K/mm3 (4.8-10.8)
[2025-02-22 06:44] LABS: Alanine Aminotransferase 16 U/L (12-78); Albumin Level 3.0 g/dl (3.5-5.0); Albumin/Globulin Ratio 1.1 (1.1-1.8); Alkaline Phosphatase 41 U/L (38-126); Anion Gap 11.3 mEq/L (5-15); Aspartate Amino Transferase 22 U/L (17-59); Bilirubin,Total 0.5 mg/dl (0.2-1.3); Blood Urea Nitrogen 29 mg/dl (9-20); Calcium 8.2 mg/dl (8.4-10.2); Carbon Dioxide 20 mmol/L (22.0-30.0); Chloride 110 mmol/L (98-107); Creatinine Clearance Estimated 47 mL/min (50-200); Creatinine,Serum 1.50 mg/dl (0.66-1.25); Estimated Glomerular Filt Rate 45 ml/min (>60); GFR (African American) 55 ML/MIN (>60); Globulin 2.8 g/dL (1.3-3.2); Glucose 91 mg/dl (74-100); Magnesium 1.8 mg/dl (1.6-2.3); Potassium 4.3 mmoL/L (3.5-5.1); Sodium 137 mmol/L (136-145); Total Protein,Serum 5.8 g/dl (6.3-8.2)
[2025-02-22 08:06] LABS: Hemoglobin 10.8 g/dL (14.1-18.0)
[2025-02-22] MEDS: SERTRALINE 50MG TABLET 50 MG PO (08:42)
[2025-02-22 09:01] LABS: Adenovirus,PCR Not Detected (NotDetected); Chlamydophila Pneumoniae, PCR Not Detected (NotDetected); Coronavirus 19, PCR Not Detected (NotDetected); Coronovirus HKU1,PCR Not Detected (NotDetected); Influenza A, PCR Not Detected (NotDetected); Influenza AH1, 2009 Not Detected (NotDetected); Influenza AH1, PCR Not Detected (NotDetected); Influenza AH3,PCR Not Detected (NotDetected); Influenza B, PCR Not Detected (NotDetected); Mycoplasma Pneumoniae, PCR Not Detected (NotDetected); Parainfluenza 1, PCR Not Detected (NotDetected); Parainfluenza 2, PCR Not Detected (NotDetected); Parainfluenza 3, PCR Not Detected (NotDetected); Parainfluenza 4, PCR Not Detected (NotDetected)
[2025-02-22] MEDS: CEFEPIME HCL 2 GM in 0.9 % SODIUM CHLORIDE 100 ML IV (10:26)
[2025-02-22 12:11] LABS: C-Reactive Protein 81.2 mg/L (0-4)
[2025-02-22] MEDS: APIXABAN 5 MG PO (12:19)
[2025-02-22 12:25] LABS: Procalcitonin 20.1 ng/mL (0.0-2.0)
--- NOTE | 2025-02-22 12:33 | CT_ITS ---
FINAL REPORT TECHNIQUE: After the administration of oral and intravenous contrast, axial images were obtained through the abdomen and pelvis by computed tomography. The study was performed with techniques to keep radiation dose as low as reasonably achievable, (ALARA). Individual dose reduction techniques using automated exposure control or adjustment of mA and/or kV according to the patient's size were employed. CLINICAL HISTORY: Sepsis workup FINDINGS: Abdomen: The liver parenchyma is homogeneous. The gallbladder is present. The spleen, pancreas, and adrenals appear unremarkable. There are bilateral renal cysts, the largest of which is in the superior pole of the right kidney measuring 4 x 3.7 cm in size. The aorta is normal in caliber. There is no free fluid or adenopathy. There is extensive streak artifact secondary to posterior fusion hardware extending from L2-S1. Pelvis: The appendix is unremarkable in appearance. The urinary bladder is incompletely distended. There is no free fluid or adenopathy. There is extensive diverticulosis in the sigmoid colon without evidence of acute inflammatory change. IMPRESSION: No acute intra-abdominal process. Reviewed, Interpreted and Dictated by Julio Cesar Patel MD Transcribed by Yolanda Kim Authenticated and [facility]
--- NOTE | 2025-02-22 12:34 | CT_ITS ---
FINAL REPORT TECHNIQUE: Axial images were obtained through the chest without contrast. Multiplanar reconstructions were performed in the coronal and sagittal planes. This study was performed with techniques to keep radiation doses as low as reasonably achievable (ALARA). Individualized dose reduction techniques using automated exposure control or adjustment of mA and/or kV according to the patient's size were employed. CLINICAL HISTORY: Sepsis workup COMPARISON: None FINDINGS: CT CHEST: The heart size is normal, with marked coronary artery calcifications. There is no pericardial or pleural effusion. There are minimal bibasilar areas of consolidation, new since the prior exam. No acute osseous abnormality is noted. IMPRESSION: Marked coronary artery calcifications are present. Minimal bibasilar consolidation is noted, new since the previous exam. Reviewed, Interpreted and Dictated by Julio Cesar Patel MD Transcribed by Yolanda Kim Authenticated and [facility]
[2025-02-22] MEDS: IOPAMIDOL-370 (76%);100ML BOTTLE 75 ML IV (13:08)
[2025-02-22] MEDS: SODIUM CHLORIDE 0.9% 10ML SYR (RAD ONLY) 10 ML IV (13:08)
[2025-02-22] MEDS: SODIUM CHLORIDE 3% 15ML NEB 3 ML IH (14:54)
--- NOTE | 2025-02-22 15:52 | EXP.DC.SUM ---
General Admission date:: 02/21/25 HPI HPI HPI: Mr. Villafuerte is a 79-year-old male with history of A-fib on chronic anticoagulation, history of cervical spine surgery earlier this year, who presented to the ER with complaints of chills and shaking along with hypotension this morning. States he woke up this morning with some incontinence, chills, low blood pressure and blurry vision. Came to the ER because of the severity of shaking and how poorly he felt. He denies cough, congestion, nausea, vomiting, chest pain, confusion, trauma, dysuria, diarrhea over the past week or 2. Essentially negative review of systems other than chills and blurry vision this morning with his low blood pressure. On workup in the ER, white count found to be 19.5. Patient was hypotensive with blood pressure 77/45. Concern for SIRS with unclear source of infection. Cultures obtained and initiated on empiric antibiotics along with fluid bolus. Seeing response with improvement in blood pressure after receiving 1 L IV fluids. Medicine consulted for admission and further management of SIRS and suspected infection. Patient's urinalysis was relatively unremarkable in the ER. Chest imaging did not show focal airspace disease. States has had some increased pain in his upper back after further questioning but is more soreness and a tightness that he thinks is associated with his previous surgeries to his upper back and neck. Does not report any warmth or lesions that he is aware of. Does report that he was hurting in general this morning with his chills and shaking. Visions better after improvement in his blood pressure. Hospital Course Hospital Course Hospital Course: Jamir Villafuerte 79-year-old male who presents with symptoms of SIRS including leukocytosis and hypotension along with tachypnea with respiratory rate in the 20s while in the ER. White count elevated at 19 on arrival. Received empiric antibiotics. Discussed case with ER physician, request admission for further workup of patient's hypotension and SIRS symptoms. #Community-acquired pneumonia #Sepsis, present on admission ? Patient presented with nonspecific symptoms of chills, shaking, and low blood pressures at home. ? Initial WBC 19.5 with hypotension. Blood pressures responded to IV fluid resuscitation. ? CT chest showed mild bibasilar consolidations suggestive of pneumonia, blood cultures NGTD. ? Patient was initially initiated on vancomycin, cefepime. Clinically improved, WBC 15.6 today. Patient asymptomatic. ? Discharged with Augmentin, doxycycline for 6 more days. #Hypertension #A-fib continue home Eliquis. ? Hold home losartan, continue home metoprolol. Total time spent on discharge: 32 minutes on chart review, counseling, documentation, and direct care with patient. Exam Data for Last 24 hours Vital signs and Labs for Last 24 Hours: Temp Pulse Resp BP Pulse Ox O2 Del Method 97.9 F 63 18 145/78 H 98 Room Air 02/22/25 11:59 02/22/25 14:55 02/22/25 14:55 02/22/25 11:59 02/22/25 11:59 02/22/25 12:30 Laboratory Results - last 24 hr 02/21/25 17:30: Lactate 2.0, Troponin I 0.15 H 02/22/25 05:31: WBC 15.6 H, RBC 3.39 L, Hgb 10.8 L D, Hct 33.3 L, MCV 98.2 H, MCH 31.9 H, MCHC 32.4, RDW 13.2, Plt Count 129 L, MPV 10.3, Neut % (Auto) 82.9 H, Lymph % (Auto) 7.7 L, [place] % (Auto) 6.2, Eos % (Auto) 1.6, Baso % (Auto) 0.3, Neut # (Auto) 12.9 H, Lymph # (Auto) 1.2, [place] # (Auto) 1.0, Eos # (Auto) 0.3, Baso # (Auto) 0.0, Sodium 137, Potassium 4.3, Chloride 110 H, Carbon Dioxide 20 L, Anion Gap 11.3, BUN 29 H, Creatinine 1.50 H, Estimated Creat Clear 47, Estimated GFR 45 L, Est GFR ( Amer) 55 L D, Glucose 91 D, Calcium 8.2 L, Magnesium 1.8, Total Bilirubin 0.5, AST 22 D, ALT 16 D, Alkaline Phosphatase 41, C-Reactive Protein 81.2 H, Total Protein 5.8 L, Albumin 3.0 L D, Globulin 2.8, Albumin/Globulin Ratio 1.1, Procalcitonin 20.1 H 02/22/25 08:57: Chlamy pneumoniae PCR Not detected, Adenovirus (PCR) Not detected, B. pertussis DNA (PCR) Not detected, Coronavirus OC43 (PCR) Not detected, Coronavirus HKU1 (PCR) Not detected, Coronavirus 229E (PCR) Not detected, SARS-CoV-2 (PCR) Not detected, Coronavirus NL63 (PCR) Not detected, Human Metapneumovir PCR Not detected, Influenza A (H1) PCR Not detected, Influ A (H1N1/09) PCR Not detected, Influenza A (H3) PCR Not detected, Influenza Type A (PCR) Not detected, Influenza Type B (PCR) Not detected, M. pneumoniae (PCR) Not detected, Parainfluenza 1 (PCR) Not detected, Parainfluenza 2 (PCR) Not detected, Parainfluenza 3 (PCR) Not detected, Parainfluenza 4 (PCR) Not detected, RSV (PCR) Not detected, Entero/Rhino (PCR) Not detected I & O for Last 24 hours: Intake & Output 02/19/25 02/20/25 02/21/25 02/22/25 23:59 23:59 23:59 23:59 Intake Total 4350.000 / 4650.000 1380 / 1380 Output Total 950 / 950 400 / 400 Balance 3400.000 / 3700.000 980 / 980 Weight 79.379 kg 82.611 kg Microbiology Reports for the Last 24 Hours: Microbiology 02/21/25 12:42 Blood Blood Culture - Preliminary NO GROWTH AFTER 24 HOURS 02/21/25 12:33 Blood Blood Culture - Preliminary NO GROWTH AFTER 24 HOURS Constitutional Constitutional: no acute distress *Routine HEENT Exam Head: Present normocephalic Eye: Present EOMI and PERRL ENT: Present mucous membranes moist *Routine Neck Exam Neck: Present supple; Absent lymphadenopathy *Routine Respiratory Exam Respiratory: Present CTA bilaterally *Routine Cardiovascular Exam Cardiovascular: Present RRR *Routine Abdominal Exam Abdominal: Present soft and normoactive bowel sounds; Absent tenderness *Routine Extremities Exam Extremities: Absent cyanosis, clubbing or edema *Routine Skin Exam Skin: Present warm; Absent rash *Routine Neurological Exam Neurological: Present alert and oriented X3 Results Data Completed and Pending Labs on day of discharge: Labs from last 24 hours 02/22/25 02/22/25 02/21/25 08:57 05:31 17:30 WBC 15.6 H RBC 3.39 L Hgb 10.8 L D Hct 33.3 L MCV 98.2 H MCH 31.9 H MCHC 32.4 RDW 13.2 Plt Count 129 L MPV 10.3 Neut % (Auto) 82.9 H Lymph % (Auto) 7.7 L [place] % (Auto) 6.2 Eos % (Auto) 1.6 Baso % (Auto) 0.3 Neut # (Auto) 12.9 H Lymph # (Auto) 1.2 [place] # (Auto) 1.0 Eos # (Auto) 0.3 Baso # (Auto) 0.0 Sodium 137 Potassium 4.3 Chloride 110 H Carbon Dioxide 20 L Anion Gap 11.3 BUN 29 H Creatinine 1.50 H Estimated Creat Clear 47 Estimated GFR 45 L Est GFR ( Amer) 55 L D Glucose 91 D Lactate 2.0 Calcium 8.2 L Magnesium 1.8 Total Bilirubin 0.5 AST 22 D ALT 16 D Alkaline Phosphatase 41 Troponin I 0.15 H C-Reactive Protein 81.2 H Total Protein 5.8 L Albumin 3.0 L D Globulin 2.8 Albumin/Globulin Ratio 1.1 Procalcitonin 20.1 H Chlamy pneumoniae PCR Not detected Adenovirus (PCR) Not detected B. pertussis DNA (PCR) Not detected Coronavirus OC43 (PCR) Not detected Coronavirus HKU1 (PCR) Not detected Coronavirus 229E (PCR) Not detected SARS-CoV-2 (PCR) Not detected Coronavirus NL63 (PCR) Not detected Human Metapneumovir PCR Not detected Influenza A (H1) PCR Not detected Influ A (H1N1/09) PCR Not detected Influenza A (H3) PCR Not detected Influenza Type A (PCR) Not detected Influenza Type B (PCR) Not detected M. pneumoniae (PCR) Not detected Parainfluenza 1 (PCR) Not detected Parainfluenza 2 (PCR) Not detected Parainfluenza 3 (PCR) Not detected Parainfluenza 4 (PCR) Not detected RSV (PCR) Not detected Entero/Rhino (PCR) Not detected Preliminary micro results at discharge 02/21/25 12:42 Blood Culture - Preliminary Blood NO GROWTH AFTER 24 HOURS 02/21/25 12:33 Blood Culture - Preliminary Blood NO GROWTH AFTER 24 HOURS DS: Diagnosis Discharge Diagnosis (1) Acute hypotension: Status: Acute Code(s): I95.9 - Hypotension, unspecified (2) SIRS (systemic inflammatory response syndrome): Status: Acute Code(s): R65.10 - Systemic inflammatory response syndrome (SIRS) of non-infectious origin without acute organ dysfunction (3) Leukocytosis: Status: Acute Code(s): D72.829 - Elevated white blood cell count, unspecified (4) A-fib: Status: Chronic Code(s): I48.91 - Unspecified atrial fibrillation (5) Chronic anticoagulation: Status: Chronic Code(s): Z79.01 - joint terminal attack controller (current) use of anticoagulants Meds Home Medications and Allergies Home Medications ?Medication ?Instructions ?Recorded ?Confirmed ?Type alfuzosin 10 mg tablet,extended 10 mg PO DAILY 02/21/25 02/21/25 History release 24 hr apixaban 5 mg tablet (Eliquis) 5 mg PO BID 02/21/25 02/21/25 History losartan 25 mg tablet 25 mg PO DAILY 02/21/25 02/21/25 History Held on 02/22/25. Instructions: Resume on 03/01/25. Your blood pressures were low when you came into the hospital, follow-up with your PCP to discuss restarting this medication. metoprolol succinate 25 mg 25 mg PO DAILY 02/21/25 02/21/25 History tablet,extended release 24 hr omeprazole 40 mg capsule,delayed 40 mg PO DAILY 02/21/25 02/21/25 History release oxybutynin chloride 10 mg 10 mg PO DAILY 02/21/25 02/21/25 History tablet,extended release 24 hr rosuvastatin 10 mg tablet 10 mg PO DAILY 02/21/25 02/21/25 History sertraline 50 mg tablet 50 mg PO DAILY 02/21/25 02/21/25 History amoxicillin 500 mg-potassium 1 tab PO TID 6 days #18 tabs 02/22/25 Rx clavulanate 125 mg tablet (Augmentin) doxycycline monohydrate 100 mg 100 mg PO BID 6 days #12 caps 02/22/25 Rx capsule New Prescriptions to Start Prescriptions: amoxicillin-pot clavulanate [Augmentin] Efraín Neville doxycycline monohydrate Efraín Neville Allergies Allergy/AdvReac Type Severity Reaction Status Date / Time No Known Allergies Allergy Verified 05/28/19 20:53 Discharge Plan Disposition Patient Disposition: Home, Self-Care Condition: Fair Follow up Plan Follow up with: Oral Whitney PA [Physician Pv Design Engineer, Cardiology] - 1 week Jennifer Harp [Primary Care Provider, Medical] - 03/01/25 1:00 pm Prescriptions/Medication Reconciliation: New doxycycline monohydrate 100 mg capsule 100 mg PO BID 6 Days Qty: 12 0RF amoxicillin-pot clavulanate [Augmentin] 500-125 mg tablet 1 tab PO TID 6 Days Qty: 18 0RF Continued oxybutynin chloride 10 mg tablet extended release 24hr 10 mg PO DAILY omeprazole 40 mg capsule,delayed release(DR/EC) 40 mg PO DAILY metoprolol succinate 25 mg tablet extended release 24 hr 25 mg PO DAILY sertraline 50 mg tablet 50 mg PO DAILY rosuvastatin 10 mg tablet 10 mg PO DAILY alfuzosin 10 mg tablet extended release 24 hr 10 mg PO DAILY Eliquis 5 mg tablet 5 mg PO BID Held losartan 25 mg tablet 25 mg PO DAILY Hold Instructions: Resume on 03/01/25. Your blood pressures were low when you came into the hospital, follow-up with your PCP to discuss restarting this medication. Problem Reconciliation Problems Reviewed?: Yes Patient Discharge Instructions Patient Instructions: Acute Kidney Injury, DI for Sepsis in Adults, Stop Light Infection Print Language: Icelandic Providers Primary Care Provider: Jennifer Harp Admit Provider: Pete Cervantes Attending Provider: Pete Cervantes
[2025-02-22] MEDS: VANCOMYCIN/WATER FOR INJ (PEG) 1.25 GM/250 ML PIGGYBACK IV (16:34)
[2025-02-22 18:09] LABS: Procalcitonin 16.9 ng/mL (0.0-2.0)
--- NOTE | 2025-02-22 18:20 | PC.NURSE ---
AOX4, AMBULATES IN ROOM INDEPENDENTLY. NO COMPLAINTS THIS SHIFT. NO CHANGES FROM PREVIOUS ASSESSMENT.
--- NOTE | 2025-02-23 10:09 | SW/DCPLANNER ---
Spoke with patient on the phone. Patient stated that he is doing good. Patient stated that he is aware of his upcoming appointments. Patient stated that he was able to get his new medicine picked up from the pharmacy this morning. Patient stated that he has no concerns or questions at this time. Michael Le
== END 2025-02-22 19:18 | disposition home or self-care (01) ==
LOC: ER 12:57 → 2ND 13:38
PROVIDERS: Student in an Organized Health Care Education/Training Program; Admitting Provider Internal Medicine Adolescent Medicine; Emergency Provider Student in an Organized Health Care Education/Training Program; PCP Nurse Practitioner Family; Visit Provider Internal Medicine Adolescent Medicine
DX: A41.9 Sepsis, unspecified organism (principal); J18.9 Pneumonia, unspecified organism; I95.9 Hypotension, unspecified; N31.9 Neuromuscular dysfunction of bladder, unspecified; I48.91 Unspecified atrial fibrillation; I25.10 Atherosclerotic heart disease of native coronary artery without angina pectoris; F39 Unspecified mood [affective] disorder; R94.31 Abnormal electrocardiogram [ECG] [EKG]; N39.498 Other specified urinary incontinence; Z95.5 Presence of coronary angioplasty implant and graft; Z98.890 Other specified postprocedural states; Z79.01 Long term (current) use of anticoagulants; Z79.899 Other long term (current) drug therapy
CPT/HCPCS: 0223U; 36415; 71045; 71250; 74177; 80053; 81001; 83605; 83735; 84145; 84443; 84484; 85007; 85025; 85027; 86140; 87040; 87070; 87086; 87205; 87636; 89220; 93005; 96361; 96365; 96366; 96367; 96376; 99285; G0378; J0692; J1836; J3375; J7120; Q9967